=== PATIENT | female | born 1975 | race Caucasian/White ===

== ENCOUNTER 2016-08-11 11:08 | Outpatient (CLI) | payer MEDICARE, MEDICAID | END 2016-08-11 23:59 | DX: N39.0 Urinary tract infection, site not specified (principal) ==

== ENCOUNTER 2016-08-14 11:38 | Outpatient (CLI) | payer MEDICARE, MEDICAID | END 2016-08-14 11:39 | disposition EMS.NT | DX: Z03.89 Encounter for observation for other suspected diseases and conditions ruled out (principal) ==

== ENCOUNTER 2016-08-14 15:34 | Outpatient (CLI) | payer MEDICARE, MEDICAID | END 2016-08-14 15:35 | disposition home or self-care (01) | DX: M47.896 Other spondylosis, lumbar region (principal) ==

== ENCOUNTER 2016-08-25 13:20 | Outpatient (CLI) | payer MEDICARE, MEDICAID ==
[2016-08-25 19:56] LABS: ALBUMIN/GLOBULIN RATIO 1.2 (1.0-2.2); BILIRUBIN,TOTAL 0.5 mg/dL (0.2-1.0); CALCIUM 9.3 mg/dL (8.5-10.3); CREATININE 0.8 mg/dL (0.4-1.0); POTASSIUM 3.7 mmol/L (3.5-5.0); TOTAL PROTEIN 7.3 g/dL (6.7-8.2)
[2016-08-25 20:07] LABS: HEMOGLOBIN A1C 1.18 g/dL
== END 2016-08-25 13:21 | disposition home or self-care (01) ==
LOC: LAB.N 13:20
PROVIDERS: ATTEND Physician Assistant
DX: E11.9 Type 2 diabetes mellitus without complications (principal)
CPT/HCPCS: 36415; 80053; 82043; 82570; 83036

== ENCOUNTER 2016-09-03 13:53 | Emergency (ER) | payer MEDICARE, MEDICAID ==
[2016-09-03 14:23] LABS: BILIRUBIN,URINE NEGATIVE (NEGATIVE)
--- NOTE | 2016-09-03 14:23 | ED Physician Documentation ---
PD HPI ABD PAIN - Stated complaint Stated Complaint: ABD/SIDE PX - Chief complaint Chief Complaint: Abd Pain - History obtained from History obtained from: Patient, Caregiver - History of Present Illness Timing - onset: Enter time (1999), Last night Timing - duration: Hours Timing - details: Gradual onset, Still present Quality: Sharp, Pain Location: RLQ Radiation: Lower back Improved by: Laying still Worsened by: Moving, Position, Palpation Associated symptoms: Nausea, Loss of appetite Similar symptoms before: Has not had sx before Recently seen: Not recently seen - Additional information Additional information: 41 y/o female has had the onset of RLQ abdominal pain starting last night about 8pm during intercourse. The pain has worsened overnight and this morning after evaluation by her own PMD she was sent to the ED with a tender right lower quadrant. She reports the pain is worse with any movement and started with rigorous activity pushing back. It hurts to stand and walk and there is improvement with being motionless. Review of Systems Constitutional: denies: Fever, Chills Eyes: denies: Decreased vision Ears: denies: Ear pain Nose: denies: Congestion Throat: denies: Sore throat Cardiac: denies: Chest pain / pressure, Palpitations Respiratory: denies: Dyspnea, Cough GI: reports: Abdominal Pain, Nausea. denies: Abdominal Swelling, Vomiting, Constipation, Diarrhea : reports: Dysuria. denies: Frequency, Hesitancy PD PAST MEDICAL HISTORY - Past Medical History Past Medical History: Yes Cardiovascular: Hypertension, Deep vein thrombosis Endocrine/Autoimmune: Type 2 diabetes GI: Other Psych: Anxiety, Other Musculoskeletal: Osteoarthritis Other Past Medical History: schizoaffective, hernias - Past Surgical History Past Surgical History: Yes General: Cholecystectomy - Present Medications Home Medications: Ambulatory Orders Medication Instructions Recorded Confirmed Oxycodone HCl/Acetaminophen 1 - 2 each PO Q6HR PRN #20 tablet 09/03/16 [Percocet 5-325 mg Tablet] - Allergies Allergies/Adverse Reactions: Allergies Allergy/AdvReac Type Severity Reaction Status Date / Time bupropion HCl * Allergy Unknown Verified 09/03/16 14:37 [From Wellbutrin] cephalexin monohydrate * Allergy Rash Verified 09/03/16 14:37 [From Keflex] codeine Allergy Unknown Verified 09/03/16 14:37 fluoxetine HCl * Allergy Anaphylaxis Verified 09/03/16 14:37 [From Prozac] lithium Allergy Unknown Verified 09/03/16 14:37 Penicillins Allergy Rash Verified 09/03/16 14:37 phenytoin sodium * Allergy Rash Verified 09/03/16 14:37 [From Dilantin] phenytoin sodium extended * Allergy Rash Verified 09/03/16 14:37 [From Dilantin] - Social History Does the pt smoke?: No Smoking Status: Never smoker Does the pt drink ETOH?: Yes Does the pt have substance abuse?: No Substance Use and Type: Marijuana - Immunizations Immunizations are current?: Yes PD ED PE NORMAL - Vitals Vital signs reviewed: Yes (normal ) - General General: No acute distress, Well developed/nourished - HEENT HEENT: Atraumatic, PERRL, EOMI - Neck Neck: Supple, no meningeal sign - Cardiac Cardiac: RRR, No murmur - Respiratory Respiratory: No respiratory distress, Clear bilaterally - Abdomen Abdomen: Soft, Other (There is a large hiatal hernia on the left side. This is tender about the baseline according to the patient. The is marked, specific and reproducible tenderness to the Right lower quadrant with garding. ) - Back Back: No CVA TTP, No spinal TTP - Derm Derm: Normal color, Warm and dry, No rash - Extremities Extremities: No deformity, No edema - Neuro Neuro: Alert and oriented X 3, No motor deficit, No sensory deficit, Normal speech - Psych Psych: Normal mood, Normal affect Results - Vitals Vitals: Vital Signs - 24 hr 09/03/16 09/03/16 13:56 16:25 Temperature 36.5 C Heart Rate 90 79 Respiratory 17 16 Rate Blood Pressure 127/76 122/60 O2 Saturation 96 96 Oxygen O2 Source Room air - Labs Labs: Laboratory Tests 09/03/16 09/03/16 09/03/16 14:00 14:32 14:32 WBC 7.8 RBC 5.17 Hgb 13.4 Hct 40.3 MCV 78.0 L MCH 26.0 L MCHC 33.3 RDW 17.6 H Plt Count 242 MPV 8.2 Neut # 5.4 Lymph # 1.8 [place] # 0.5 Eos # 0.0 Baso # 0.0 Absolute Nucleated RBC 0.00 Nucleated RBCs 0.0 Sodium 140 Potassium 3.9 Chloride 103 Carbon Dioxide 27 Anion Gap 10.0 BUN 11 Creatinine 0.6 Estimated GFR (MDRD) 111 Glucose 125 H Calcium 8.8 Total Bilirubin 0.5 AST 14 ALT 14 Alkaline Phosphatase 87 Total Protein 6.8 Albumin 3.7 Globulin 3.1 Albumin/Globulin Ratio 1.2 Lipase 18 L Urine Color YELLOW Urine Clarity CLEAR Urine pH 7.0 Ur Specific [place] 1.010 Urine Protein NEGATIVE Urine Glucose (UA) >=1000 H Urine Ketones NEGATIVE Urine Occult Blood NEGATIVE Urine Nitrite NEGATIVE Urine Bilirubin NEGATIVE Urine Urobilinogen 0.2 (NORMAL) Ur Leukocyte Esterase NEGATIVE Ur Microscopic Review NOT INDICATED Urine Culture Comments NOT INDICATED Urine HCG, Qual NEGATIVE - Rads (name of study) CT abdomen and pelvis without Radiology: Prelim report reviewed (Impression: 1. Recurrent large ventral midline abdominal wall hernia containing nonobstructive loops of small bowel transverse colon. No bowel wall thickening or inflammatory change evident. 2. Prior cholecystectomy. 3. A 1.9 cm indeterminate inferior splenic lesion. 4. Artifacts limits evaluation the pelvis.), Final report received (Final report includes description of the appendix been without signs of inflammation.), EMP read indepedently, See rad report PD MEDICAL DECISION MAKING - ED course Complexity details: reviewed old records, reviewed results, re-evaluated patient , considered differential, d/w patient, d/w family ED course: 41 y/o female with injury during intercourse has a tender right lower quadrant with reproducible pain. The pain is well localized and present with palpation and movement. She has normal WBC, no inflammation of the appendix on CT scan and no specific etiology identified for abdominal pain. I have diagnosed her with abdominal wall strain and have described the expected outcome of this including persistent pain and pain with movement, standing and walking. She and her caregiver are in agreement with the diagnosis as it does appear to fit the clinical picture. Departure - Departure Disposition: 01 Home, Self Care Clinical Impression: Abdominal wall strain Qualifiers: Encounter type: initial encounter Qualified Code(s): S39.011A - Strain of muscle, fascia and tendon of abdomen, initial encounter Condition: Stable Instructions: ED Strain Abdominal Muscle Follow-Up: Sha Duong PA-C [Primary Care Provider] - Prescriptions: Oxycodone HCl/Acetaminophen [Percocet 5-325 mg Tablet] 1 - 2 each PO Q6HR PRN # 20 tablet PRN Reason: Pain Discharge Date/Time: 09/03/16 16:59
[2016-09-03 14:24] LABS: UA CHARGE (STRIP ONLY) YES; UR CULTURE IF IND NOT INDICATED
[2016-09-03 14:25] LABS: HCG UR QUAL NEGATIVE
[2016-09-03] MEDS ORDERED: SODIUM CHLORIDE 0.9% 1,000 ML IV ONE (14:26)
[2016-09-03] MEDS ORDERED: KETOROLAC 60 MG/2 ML VIAL IVP STA (14:26)
[2016-09-03 14:46] LABS: BASOPHILS % (AUTO) 0.6 %; EOSINOPHILS % (AUTO) 0.4 %; HCT - HEMATOCRIT 40.3 % (37.0-47.0); HGB - HEMOGLOBIN 13.4 g/dL (12.0-16.0); LYMPHOCYTES # (AUTO) 1.8 10^3/uL (1.5-3.5); LYMPHOCYTES % (AUTO) 22.7 %; MEAN CORPUSCULAR HGB CONC 33.3 g/dL (32.0-36.0); MEAN PLATELET VOLUME 8.2 fL (7.9-10.8); MONOCYTES # (AUTO) 0.5 10^3/uL (0.0-1.0); MONOCYTES % (AUTO) 6.1 %; NEUTROPHILS # (AUTO) 5.4 10^3/uL (1.5-6.6); NEUTROPHILS % (AUTO) 70.2 %; RED BLOOD COUNT 5.17 10^6/uL (4.20-5.40); RED CELL DISTRIBUTION WIDTH 17.6 % (12.0-15.0); UNCORRECTED WHITE BLOOD COUNT 7.8 x10^3/uL; WHITE BLOOD COUNT 7.8 x10^3/uL (4.8-10.8)
[2016-09-03 15:08] LABS: ALBUMIN/GLOBULIN RATIO 1.2 (1.0-2.2); BILIRUBIN,TOTAL 0.5 mg/dL (0.2-1.0); CALCIUM 8.8 mg/dL (8.5-10.3); CREATININE 0.6 mg/dL (0.4-1.0); POTASSIUM 3.9 mmol/L (3.5-5.0); TOTAL PROTEIN 6.8 g/dL (6.7-8.2)
--- NOTE | 2016-09-03 15:17 | CT Preliminary Report ---
Exam: CT Abdomen/Pelvis W/O IMPRESSION: 1. Recurrent large ventral midline abdominal wall hernia containing nonobstructed loops of small alejandra l and a loop of transverse colon. No bowel wall thickening or inflammatory change evident. 2. Prior cholecystectomy. 3. A 1.9 cm indeterminate inferior splenic lesion. 4. Artifacts limit evaluation of the pelvis. [facility] SITE ID: [id number]
--- NOTE | 2016-09-03 15:20 | CT Report ---
EXAM: CT ABDOMEN AND PELVIS (CT KUB) EXAM DATE: 09/03/2016 02:54 PM. CLINICAL HISTORY: RLQ pain. COMPARISONS: None. TECHNIQUE: Routine axial helical CT imaging was performed through the abdomen and pelvis without IV c ontrast. Reconstructions: Coronal and sagittal. Artifacts due to body habitus are more pronounced in the pelvis. In accordance with CT protocol optimization, one or more of the following dose reduction techniques w ere utilized for this exam: automated exposure control, adjustment of mA and/or KV based on patient s ize, or use of iterative reconstructive technique. FINDINGS: Lung Bases: Prior ASD repair. Right Kidney/Ureter: No stones, hydronephrosis, or hydroureter. No perinephric fat stranding. Left Kidney/Ureter: No stones, hydronephrosis, or hydroureter. No perinephric fat stranding. Other Solid Organs: 1.9 x 1.8 cm indeterminant inferior splenic low-attenuation lesion. Medial splenu le noted as well. Gallbladder/Bile Ducts: Prior cholecystectomy. Peritoneal Cavity: Large midline ventral abdominal wall hernia containing nonobstructed loops of smal l bowel and loop of transverse colon. The hernia neck measures 8.2 cm transverse by 6.6 cm craniocaud al. Evidence of prior repair noted. No bowel wall thickening or mesenteric edema evident. No inflamed appendix evident. Pelvic Organs: No bladder stones or wall thickening. Noncontrast images of the visualized pelvic orga ns are unremarkable, noting streak artifacts related to body habitus. Vasculature: Unremarkable. Other: None. IMPRESSION: 1. Recurrent large ventral midline abdominal wall hernia containing nonobstructed loops of small alejandra l and a loop of transverse colon. No bowel wall thickening or inflammatory change evident. 2. Prior cholecystectomy. 3. A 1.9 cm indeterminate inferior splenic lesion. 4. Artifacts limit evaluation of the pelvis. [facility] Referring Provider Line: [phone] SITE ID: [id number]
[2016-09-03] MEDS ORDERED: KETOROLAC 30 MG/ML VIAL ONE (15:26)
[2016-09-03 16:25] VITALS: BP 122/60
== END 2016-09-03 16:59 | disposition home or self-care (01) ==
LOC: ED 13:53
DX: S39.011A Strain of muscle, fascia and tendon of abdomen, initial encounter (principal); X58.XXXA Exposure to other specified factors, initial encounter; K43.9 Ventral hernia without obstruction or gangrene; D73.89 Other diseases of spleen; I10 Essential (primary) hypertension; Z86.718 Personal history of other venous thrombosis and embolism; M19.90 Unspecified osteoarthritis, unspecified site
CPT/HCPCS: 36415; 74176; 80053; 81001; 81003; 81025; 83690; 85025; 87086; 96374; 99283; 99284

== ENCOUNTER 2016-10-26 10:30 | Emergency (ER) | payer MEDICARE, MEDICAID ==
[2016-10-26 11:10] LABS: BILIRUBIN,URINE NEGATIVE (NEGATIVE)
[2016-10-26 11:11] LABS: UA w/ MICROSCOPIC CHARGE YES
[2016-10-26 11:14] LABS: HCG UR QUAL NEGATIVE
[2016-10-26 11:22] LABS: UR CULTURE IF IND NOT INDICATED; WBC,URINE 0-3 /HPF (0-5)
[2016-10-26 13:44] LABS: BASOPHILS # (AUTO) 0.1 10^3/uL (0.0-0.1); BASOPHILS % (AUTO) 1.7 %; EOSINOPHILS % (AUTO) 0.5 %; HCT - HEMATOCRIT 40.9 % (37.0-47.0); HGB - HEMOGLOBIN 13.7 g/dL (12.0-16.0); LYMPHOCYTES # (AUTO) 2.2 10^3/uL (1.5-3.5); LYMPHOCYTES % (AUTO) 34.8 %; MEAN CORPUSCULAR HEMOGLOBIN 26.7 pg (27.0-31.0); MEAN CORPUSCULAR HGB CONC 33.5 g/dL (32.0-36.0); MEAN CORPUSCULAR VOLUME 79.5 fL (81.0-99.0); MEAN PLATELET VOLUME 7.7 fL (7.9-10.8); MONOCYTES # (AUTO) 0.4 10^3/uL (0.0-1.0); MONOCYTES % (AUTO) 7.2 %; NEUTROPHILS # (AUTO) 3.5 10^3/uL (1.5-6.6); NEUTROPHILS % (AUTO) 55.8 %; RED BLOOD COUNT 5.15 10^6/uL (4.20-5.40); RED CELL DISTRIBUTION WIDTH 16.3 % (12.0-15.0); UNCORRECTED WHITE BLOOD COUNT 6.2 x10^3/uL; WHITE BLOOD COUNT 6.2 x10^3/uL (4.8-10.8)
[2016-10-26] MEDS ORDERED: BENZONATATE 100 MG CAPSULE PO STA (13:45)
[2016-10-26] MEDS ORDERED: ALBUTEROL NEB 2.5 MG/3 ML INH STA (13:45)
[2016-10-26 13:50] LABS: INR 1.2 (0.8-1.2); PT - PROTHROMBIN TIME 13.7 secs (9.9-12.6)
[2016-10-26 13:57] LABS: PARTIAL THROMBOPLASTIN TIME 32.1 secs (24.9-33.3)
[2016-10-26] MEDS ORDERED: ALBUTEROL NEB 2.5 MG/3 ML INH ONE ×2 (13:57→20:26)
[2016-10-26] MEDS ORDERED: BENZONATATE 100 MG CAPSULE PO ONE ×2 (14:01→21:34)
--- NOTE | 2016-10-26 14:36 | XRAY Preliminary Report ---
Exam: XR Chest 2 View PA/LAT IMPRESSION: 1. No acute cardiopulmonary disease. 2. Tiny radiodensities at the inferomedial aspect of the right hemithorax which may represent calcifi cations or clips or foreign bodies. [facility] SITE ID: [id number]
--- NOTE | 2016-10-26 14:38 | XRAY Report ---
EXAM: CHEST RADIOGRAPHY EXAM DATE: 10/26/2016 02:01 PM. CLINICAL HISTORY: Cough COMPARISON: None. TECHNIQUE: 2 views. FINDINGS: Lungs/Pleura: No focal opacities evident. No pleural effusion. No pneumothorax. Normal volumes. Mediastinum: Heart and mediastinal contours are unremarkable. Other: Tiny radiodensities at the inferomedial aspect of the right hemithorax. IMPRESSION: 1. No acute cardiopulmonary disease. 2. Tiny radiodensities at the inferomedial aspect of the right hemithorax which may represent calcifi cations or clips or foreign bodies. [facility] Referring Provider Line: [phone] SITE ID: [id number]
[2016-10-26] MEDS ORDERED: LORazepam 0.5 MG TABLET PO STA (14:56)
[2016-10-26] MEDS ORDERED: LORazepam 0.5 MG TABLET ONE ×2 (15:02→21:33)
--- NOTE | 2016-10-26 15:35 | ED Physician Documentation ---
History of Present Illness - Stated complaint Stated Complaint: mhe - Chief complaint Chief Complaint: MHE - Additonal information Additional information: hx from pt 41 female known mental health disorder was in pt mental health at [place] last winter states she is followed outpt with [facility] but also says she does not have a psychiatrist or psychologistis compliant with ehr meds she comes to ER today c/o auditory (voices chainsaws) visual (lights roaches) hallucinations and suicidal and homicidal ideations without a clear plan and feeling she needs inpt mental health care again also had a cough productive of green sputum and SOA 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 - also has a hx DVTs but states compliant with her xarelto and no leg swelling denies preg Review of Systems Constitutional: denies: Fever, Chills Throat: denies: Sore throat Cardiac: denies: Chest pain / pressure Respiratory: reports: Dyspnea, Cough, Wheezing GI: denies: Abdominal Pain, Nausea, Vomiting : denies: Now EGA Psychiatric: reports: Suicidal, Homicidal, Hallucinations, Anxiety Immunocompromised: denies: Immunocompromised PD PAST MEDICAL HISTORY - Past Medical History Past Medical History: Yes Cardiovascular: Hypertension, Deep vein thrombosis, Pulmonary embolism Neuro: Peripheral neuropathy, Seizure disorder Endocrine/Autoimmune: Type 2 diabetes GI: Other : Renal insuffiency Psych: Depression, Anxiety, Bipolar disorder, Schizophrenia, Other Musculoskeletal: Osteoarthritis - Past Surgical History Past Surgical History: Yes General: Cholecystectomy - Present Medications Home Medications: Ambulatory Orders Medication Instructions Recorded Confirmed Aripiprazole [Abilify] 20 mg PO DAILY 09/28/16 10/26/16 Ascorbic Acid [Vitamin C] 500 mg PO DAILY 09/28/16 10/26/16 Canagliflozin [Invokana] 100 mg PO DAILY 09/28/16 10/26/16 Citalopram Hydrobromide 20 mg PO DAILY 09/28/16 10/26/16 [Citalopram HBr] Clotrimazole [Clotrimazole 3] 1 applic BID 09/28/16 10/26/16 Ferrous Sulfate 325 mg PO DAILY 09/28/16 10/26/16 Furosemide [Lasix] 40 mg PO DAILY 09/28/16 10/26/16 Gabapentin 200 mg PO BID 09/28/16 10/26/16 Haloperidol Oral Soln [Haldol Oral 10 ml PO BID 09/28/16 10/26/16 Soln] Insulin Aspart [NovoLOG] 6 units SUBQ TID 09/28/16 10/26/16 Insulin Glargine [Lantus] 120 units SUBQ DAILY 09/28/16 10/26/16 Lisinopril 2.5 mg PO DAILY 09/28/16 10/26/16 Lorazepam [Ativan] 1 mg PO QID PRN 09/28/16 10/26/16 Losartan Potassium 25 mg PO DAILY 09/28/16 10/26/16 Metformin HCl 1,000 mg PO BID 09/28/16 10/26/16 Metoclopramide [Reglan] 10 mg PO BID 09/28/16 10/26/16 Rivaroxaban [Xarelto] 1 each PO DAILY 09/28/16 10/26/16 Rosuvastatin Calcium [Crestor] 40 mg PO DAILY 09/28/16 10/26/16 SITagliptin [Januvia] 100 mg PO DAILY 09/28/16 10/26/16 Tramadol HCl 50 mg PO QID PRN 09/28/16 10/26/16 lamoTRIgine [LaMICtal] 200 mg PO DAILY 09/28/16 10/26/16 raNITIdine [Zantac] 150 mg PO BID 09/28/16 10/26/16 Docusate Sodium 100 mg DAILY PRN 10/26/16 10/26/16 - Allergies Allergies/Adverse Reactions: Allergies Allergy/AdvReac Type Severity Reaction Status Date / Time bupropion HCl * Allergy Unknown Verified 10/26/16 10:42 [From Wellbutrin] cephalexin monohydrate * Allergy Rash Verified 10/26/16 10:42 [From Keflex] codeine Allergy Unknown Verified 10/26/16 10:42 fluoxetine HCl * Allergy Anaphylaxis Verified 10/26/16 10:42 [From Prozac] lithium Allergy Unknown Verified 10/26/16 10:42 Penicillins Allergy Rash Verified 10/26/16 10:42 phenytoin sodium * Allergy Rash Verified 10/26/16 10:42 [From Dilantin] phenytoin sodium extended * Allergy Rash Verified 10/26/16 10:42 [From Dilantin] - Social History Does the pt smoke?: No Smoking Status: Never smoker Does the pt drink ETOH?: Yes Does the pt have substance abuse?: No - Immunizations Immunizations are current?: Yes Results - Vitals Vitals: Vital Signs - 24 hr 10/26/16 10/26/16 10/26/16 14:22 19:02 20:45 Temperature 36.5 C 36.8 C Heart Rate 92 92 93 Respiratory 18 18 16 Rate Blood Pressure 124/74 135/89 H O2 Saturation 99 99 10/27/16 10/27/16 10/27/16 00:17 04:03 09:40 Temperature Heart Rate 91 95 93 Respiratory 16 16 18 Rate Blood Pressure 125/81 H O2 Saturation 95 10/27/16 12:00 Temperature Heart Rate 86 Respiratory 18 Rate Blood Pressure O2 Saturation Oxygen O2 Source Room air - Labs Labs: Laboratory Tests 10/26/16 10/26/16 10/26/16 10:55 10:55 13:35 WBC 6.2 RBC 5.15 Hgb 13.7 Hct 40.9 MCV 79.5 L MCH 26.7 L MCHC 33.5 RDW 16.3 H Plt Count 237 MPV 7.7 L Neut # 3.5 Lymph # 2.2 [place] # 0.4 Eos # 0.0 Baso # 0.1 Absolute Nucleated RBC 0.00 Nucleated RBCs 0.0 PT INR APTT Sodium Potassium Chloride Carbon Dioxide Anion Gap BUN Creatinine Estimated GFR (MDRD) Glucose POC Whole Bld Glucose Calcium Magnesium Total Bilirubin AST ALT Alkaline Phosphatase Total Protein Albumin Globulin Albumin/Globulin Ratio Lipase TSH Urine Color LT RED Urine Clarity HAZY Urine pH 6.0 Ur Specific [place] <=1.005 Urine Protein TRACE Urine Glucose (UA) >=1000 H Urine Ketones NEGATIVE Urine Occult Blood LARGE H Urine Nitrite NEGATIVE Urine Bilirubin NEGATIVE Urine Urobilinogen 0.2 (NORMAL) Ur Leukocyte Esterase NEGATIVE Urine RBC TNTC H Urine WBC 0-3 Ur Squamous Epith Cells RARE Squamous Urine Bacteria Rare Ur Microscopic Review INDICATED Urine Culture Comments NOT INDICATED Urine HCG, Qual NEGATIVE Urine Opiates Screen NEGATIVE Ur Oxycodone Screen NEGATIVE Urine Methadone Screen NEGATIVE Ur Propoxyphene Screen NEGATIVE Ur Barbiturates Screen NEGATIVE Ur Tricyclics Screen NEGATIVE Ur Phencyclidine Scrn NEGATIVE Ur Amphetamine Screen NEGATIVE U Methamphetamines Scrn NEGATIVE U Benzodiazepines Scrn NEGATIVE Urine Cocaine Screen NEGATIVE U Cannabinoids Screen NEGATIVE Ethyl Alcohol 10/26/16 10/26/16 10/26/16 13:35 13:35 13:35 WBC RBC Hgb Hct MCV MCH MCHC RDW Plt Count MPV Neut # Lymph # [place] # Eos # Baso # Absolute Nucleated RBC Nucleated RBCs PT 13.7 H INR 1.2 APTT 32.1 Sodium 136 Potassium 3.6 Chloride 102 Carbon Dioxide 23 Anion Gap 11.0 BUN 15 Creatinine 0.8 Estimated GFR (MDRD) 79 L Glucose 225 H POC Whole Bld Glucose Calcium 8.3 L Magnesium 1.7 Total Bilirubin 0.2 AST 19 ALT 15 Alkaline Phosphatase 90 Total Protein 7.1 Albumin 4.0 Globulin 2.9 Albumin/Globulin Ratio 1.3 Lipase 14 L TSH 5.01 Urine Color Urine Clarity Urine pH Ur Specific [place] Urine Protein Urine Glucose (UA) Urine Ketones Urine Occult Blood Urine Nitrite Urine Bilirubin Urine Urobilinogen Ur Leukocyte Esterase Urine RBC Urine WBC Ur Squamous Epith Cells Urine Bacteria Ur Microscopic Review Urine Culture Comments Urine HCG, Qual Urine Opiates Screen Ur Oxycodone Screen Urine Methadone Screen Ur Propoxyphene Screen Ur Barbiturates Screen Ur Tricyclics Screen Ur Phencyclidine Scrn Ur Amphetamine Screen U Methamphetamines Scrn U Benzodiazepines Scrn Urine Cocaine Screen U Cannabinoids Screen Ethyl Alcohol < 5.0 10/26/16 10/26/16 13:35 18:58 WBC RBC Hgb Hct MCV MCH MCHC RDW Plt Count MPV Neut # Lymph # [place] # Eos # Baso # Absolute Nucleated RBC Nucleated RBCs PT INR APTT Sodium Potassium Chloride Carbon Dioxide Anion Gap BUN Creatinine Estimated GFR (MDRD) Glucose POC Whole Bld Glucose 238 H 151 H Calcium Magnesium Total Bilirubin AST ALT Alkaline Phosphatase Total Protein Albumin Globulin Albumin/Globulin Ratio Lipase TSH Urine Color Urine Clarity Urine pH Ur Specific [place] Urine Protein Urine Glucose (UA) Urine Ketones Urine Occult Blood Urine Nitrite Urine Bilirubin Urine Urobilinogen Ur Leukocyte Esterase Urine RBC Urine WBC Ur Squamous Epith Cells Urine Bacteria Ur Microscopic Review Urine Culture Comments Urine HCG, Qual Urine Opiates Screen Ur Oxycodone Screen Urine Methadone Screen Ur Propoxyphene Screen Ur Barbiturates Screen Ur Tricyclics Screen Ur Phencyclidine Scrn Ur Amphetamine Screen U Methamphetamines Scrn U Benzodiazepines Scrn Urine Cocaine Screen U Cannabinoids Screen Ethyl Alcohol - Rads (name of study) CXR Radiology: See rad report (no acute cardiopulmonary dz, ) PD MEDICAL DECISION MAKING - ED course ED course: CXR neg for pna - pt given MDI and cough meds - doubt PE since pt is compliant with xarelto and has no leg edema HR better after ativan medically clear - slightly high glucose/pt is known diabetic, hematuria / on her period see SW notes - no voluntary beds available - so pt is to board in the ER overnight and will look for bed again tomorrow - pt aware of plan wrote for cough meds and neb on scheduled basis, ativan on scheduled basis, pt has her own home meds which she can take per usual, her SO will bring in her CPAPA for overnight use turned over to mid/power and recovery shift engineer and I will be back to resume care in AM 10/27 7 AM resumed care - spoke to pt - no acute overnight events, ativan is helping, she still has hallucinations, she did not sleep well SW for today Dipti is aware of case and need for voluntary placement pt placed at [facility] to transport, pt calm at [facility] at time of dc, VSS Departure - Departure Disposition: 65 Psych Hosp/Unit DC/Xfer Clinical Impression: Hallucinations, Suicidal ideation, Homicidal ideation COPD (chronic obstructive pulmonary disease) Qualifiers: COPD type: unspecified COPD Qualified Code(s): J44.9 - Chronic obstructive pulmonary disease, unspecified Condition: Fair
[2016-10-26 16:12] LABS: ALBUMIN/GLOBULIN RATIO 1.3 (1.0-2.2)
[2016-10-26 16:21] LABS: BILIRUBIN,TOTAL 0.2 mg/dL (0.2-1.0); BUN - BLOOD UREA NITROGEN 15 mg/dL (6-20); CALCIUM 8.3 mg/dL (8.5-10.3); CARBON DIOXIDE - CO2 23 mmol/L (21-32); CHLORIDE 102 mmol/L (101-111); CREATININE 0.8 mg/dL (0.4-1.0); GFR - MDRD 79 (>89); GLUCOSE 225 mg/dL (70-100); LIPASE 14 U/L (22-51); MAGNESIUM 1.7 mg/dL (1.7-2.8); POTASSIUM 3.6 mmol/L (3.5-5.0); SODIUM 136 mmol/L (135-145); TOTAL PROTEIN 7.1 g/dL (6.7-8.2)
[2016-10-26] MEDS ORDERED: ACETAMINOPHEN 325 MG TABLET PO STA (18:18)
[2016-10-26] MEDS ORDERED: ACETAMINOPHEN 325 MG TABLET PO ONE (18:32)
[2016-10-26] MEDS: ALBUTEROL NEB 2.5 MG/3 ML INH SCH (20:45)
[2016-10-26] MEDS: BENZONATATE 100 MG CAPSULE PO SCH (21:38)
[2016-10-26] MEDS: LORazepam 0.5 MG TABLET PO SCH (21:38)
[2016-10-27] MEDS ORDERED: ALBUTEROL NEB 2.5 MG/3 ML INH ONE ×3 (00:04→12:04)
[2016-10-27] MEDS: ALBUTEROL NEB 2.5 MG/3 ML INH SCH ×3 (00:17→12:00)
[2016-10-27] MEDS ORDERED: LORazepam 0.5 MG TABLET ONE ×2 (03:18→09:37)
[2016-10-27] MEDS: LORazepam 0.5 MG TABLET PO SCH ×2 (03:20→09:39)
[2016-10-27] MEDS ORDERED: ONDANSETRON ODT 4 MG TABLET TL STA (04:09)
[2016-10-27] MEDS ORDERED: ONDANSETRON ODT 4 MG TABLET ONE (04:09)
[2016-10-27] MEDS: BENZONATATE 100 MG CAPSULE PO SCH (07:08)
[2016-10-27] MEDS ORDERED: PATIENT OWN MED PO SCH (09:00)
[2016-10-27 09:42] VITALS: BP 125/81
[2016-10-27] MEDS ORDERED: PROMETHAZINE 25 MG/1 ML VIAL IM STA (11:15)
[2016-10-27] MEDS ORDERED: PROMETHAZINE 25 MG/1 ML VIAL ONE (11:17)
== END 2016-10-27 14:05 ==
LOC: ED 10:30
DX: R45.851 Suicidal ideations (principal); R45.850 Homicidal ideations; R44.0 Auditory hallucinations; R44.1 Visual hallucinations; F41.9 Anxiety disorder, unspecified; F31.9 Bipolar disorder, unspecified; J44.9 Chronic obstructive pulmonary disease, unspecified; I10 Essential (primary) hypertension; E11.42 Type 2 diabetes mellitus with diabetic polyneuropathy; Z79.4 Long term (current) use of insulin; Z86.718 Personal history of other venous thrombosis and embolism; Z86.711 Personal history of pulmonary embolism; Z79.01 Long term (current) use of anticoagulants
CPT/HCPCS: 71020; 80053; 80306; 81001; 81025; 83690; 83735; 84443; 85025; 85610; 85730; 94640; 96372; 99284; A9270; G0480; J7613; Q0162; 80320; 81003; 87086; 99283

== ENCOUNTER 2016-11-23 09:59 | Outpatient (CLI) | payer MEDICARE, MEDICAID ==
[2016-11-23 13:01] LABS: BASOPHILS % (AUTO) 0.5 %; EOSINOPHILS % (AUTO) 0.5 %; HCT - HEMATOCRIT 41.3 % (37.0-47.0); HGB - HEMOGLOBIN 13.7 g/dL (12.0-16.0); LYMPHOCYTES # (AUTO) 1.9 10^3/uL (1.5-3.5); LYMPHOCYTES % (AUTO) 22.2 %; MEAN CORPUSCULAR HEMOGLOBIN 26.6 pg (27.0-31.0); MEAN CORPUSCULAR HGB CONC 33.1 g/dL (32.0-36.0); MEAN CORPUSCULAR VOLUME 80.4 fL (81.0-99.0); MEAN PLATELET VOLUME 8.3 fL (7.9-10.8); MONOCYTES # (AUTO) 0.6 10^3/uL (0.0-1.0); MONOCYTES % (AUTO) 6.6 %; NEUTROPHILS # (AUTO) 6.1 10^3/uL (1.5-6.6); NEUTROPHILS % (AUTO) 70.2 %; RED BLOOD COUNT 5.13 10^6/uL (4.20-5.40); RED CELL DISTRIBUTION WIDTH 15.7 % (12.0-15.0); UNCORRECTED WHITE BLOOD COUNT 8.7 x10^3/uL; WHITE BLOOD COUNT 8.7 x10^3/uL (4.8-10.8)
[2016-11-23 13:03] LABS: ALBUMIN/GLOBULIN RATIO 1.4 (1.0-2.2); BILIRUBIN,TOTAL 0.4 mg/dL (0.2-1.0); BUN - BLOOD UREA NITROGEN 6 mg/dL (6-20); CALCIUM 8.9 mg/dL (8.5-10.3); CARBON DIOXIDE - CO2 24 mmol/L (21-32); CHLORIDE 103 mmol/L (101-111); CHOL/HDL RATIO 3.3 (<4.4); CHOLESTEROL 144 mg/dL; CREATININE 0.6 mg/dL (0.4-1.0); GFR - MDRD 111 (>89); GLUCOSE 152 mg/dL (70-100); HDL CHOLESTEROL 44 mg/dL; LDL/HDL RATIO 1.1 (<4.4); POTASSIUM 3.7 mmol/L (3.5-5.0); SODIUM 138 mmol/L (135-145); TOTAL PROTEIN 7.4 g/dL (6.7-8.2); TRIGLYCERIDES 258 mg/dL; VLDL CHOLESTEROL 52 mg/dL
== END 2016-11-23 10:00 | disposition home or self-care (01) ==
LOC: LAB.N 09:59
PROVIDERS: ATTEND Physician Assistant
DX: E11.22 Type 2 diabetes mellitus with diabetic chronic kidney disease (principal); N18.2 Chronic kidney disease, stage 2 (mild); R44.0 Auditory hallucinations
CPT/HCPCS: 36415; 80053; 80061; 84443; 85025

== ENCOUNTER 2016-12-18 15:37 | Emergency (ER) | payer MEDICARE, MEDICAID ==
[2016-12-18] MEDS ORDERED: HYDROmorphone 1 MG/ML SYRINGE IVP STA (16:11)
[2016-12-18] MEDS ORDERED: ONDANSETRON 4 MG/2 ML VIAL IVP STA (16:11)
[2016-12-18] MEDS ORDERED: SODIUM CHLORIDE 0.9% 1,000 ML IV ONE (16:11)
[2016-12-18 17:09] LABS: BASOPHILS # (AUTO) 0.2 10^3/uL (0.0-0.1); BASOPHILS % (AUTO) 1.9 %; EOSINOPHILS % (AUTO) 0.6 %; HCT - HEMATOCRIT 43.6 % (37.0-47.0); HGB - HEMOGLOBIN 14.7 g/dL (12.0-16.0); LYMPHOCYTES # (AUTO) 2.5 10^3/uL (1.5-3.5); LYMPHOCYTES % (AUTO) 30.9 %; MEAN CORPUSCULAR HEMOGLOBIN 27.1 pg (27.0-31.0); MEAN CORPUSCULAR HGB CONC 33.7 g/dL (32.0-36.0); MEAN CORPUSCULAR VOLUME 80.5 fL (81.0-99.0); MEAN PLATELET VOLUME 7.9 fL (7.9-10.8); MONOCYTES # (AUTO) 0.5 10^3/uL (0.0-1.0); MONOCYTES % (AUTO) 5.7 %; NEUTROPHILS # (AUTO) 4.8 10^3/uL (1.5-6.6); NEUTROPHILS % (AUTO) 60.9 %; RED BLOOD COUNT 5.41 10^6/uL (4.20-5.40); RED CELL DISTRIBUTION WIDTH 15.5 % (12.0-15.0); UNCORRECTED WHITE BLOOD COUNT 7.9 x10^3/uL; WHITE BLOOD COUNT 7.9 x10^3/uL (4.8-10.8)
[2016-12-18] MEDS ORDERED: SODIUM CHLORIDE FLUSH 0.9% 10 ML SYRINGE IVP ONE (17:13)
[2016-12-18] MEDS ORDERED: HYDROmorphone 1 MG/ML SYRINGE ONE (17:13)
[2016-12-18] MEDS ORDERED: ONDANSETRON 4 MG/2 ML VIAL ONE (17:13)
[2016-12-18 17:31] LABS: ALBUMIN/GLOBULIN RATIO 1.4 (1.0-2.2); BILIRUBIN,TOTAL 0.5 mg/dL (0.2-1.0); CALCIUM 9.3 mg/dL (8.5-10.3); CREATININE 0.7 mg/dL (0.4-1.0); POTASSIUM 3.8 mmol/L (3.5-5.0); TOTAL PROTEIN 7.3 g/dL (6.7-8.2)
[2016-12-18] MEDS ORDERED: IOPAMIDOL-300 100 ML VIAL IVP ONE (17:57)
--- NOTE | 2016-12-18 18:12 | CT Preliminary Report ---
Exam: CT Abdomen/Pelvis W/ IMPRESSION: 1. Stable large anterior abdominal wall hernia measuring approximately 10 x 20 cm. Hernia neck is 6 c m. No evidence of associated obstruction or inflammation. 2. Stable splenomegaly. 3. No clearly acute abnormalities to account for the patient's presentation. [facility] SITE ID: [id number]
--- NOTE | 2016-12-18 18:15 | CT Report ---
EXAM: CT ABDOMEN AND PELVIS EXAM DATE: 12/18/2016 05:55 PM. CLINICAL HISTORY: Abdominal pain COMPARISONS: 09/03/2016. TECHNIQUE: Routine helical CT imaging was performed through the abdomen and pelvis. IV contrast: 100 cc Isovue-300. Enteric contrast: No. Reconstructions: Coronal and sagittal. In accordance with CT protocol optimization, one or more of the following dose reduction techniques w ere utilized for this exam: automated exposure control, adjustment of mA and/or KV based on patient s ize, or use of iterative reconstructive technique. FINDINGS: Lung Bases: Unremarkable. Liver: Normal. No masses. Gallbladder/Bile Ducts: The gallbladder is surgically absent. No significant bile duct dilatation. Spleen: There is splenomegaly. Stable 1.5 cm hypodensity within the inferior spleen could represent c yst or hemangioma. Pancreas: Normal. Adrenal Glands: Normal. Kidneys: Normal. No masses or hydronephrosis. Peritoneal Cavity/Bowel: Stomach, small bowel, and colon demonstrate no acute abnormalities. There is a large, partially imaged anterior abdominal wall hernia. It measures approximately 10 x 20 cm. Diana ia neck is [address] evidence of significant associated inflammation. No obstruction. The appendix is not definitely seen. No evidence of pericecal inflammation. Pelvic Organs: Normal. The bladder and visualized pelvic organs are within normal limits. Vasculature: No aneurysms or other significant abnormality. Bones: No significant abnormality. Other: None. IMPRESSION: 1. Stable large anterior abdominal wall hernia measuring approximately 10 x 20 cm. Hernia neck is 6 c m. No evidence of associated obstruction or inflammation. 2. Stable splenomegaly. 3. No clearly acute abnormalities to account for the patient's presentation. [facility] Referring Provider Line: [phone] SITE ID: [id number]
--- NOTE | 2016-12-18 18:27 | ED Physician Documentation ---
PD HPI ABD PAIN - Stated complaint Stated Complaint: ABD PX - Chief complaint Chief Complaint: Abd Pain - History obtained from History obtained from: Patient - History of Present Illness Timing - onset: How many days ago (4) Timing - duration: Days (4) Timing - details: Still present Location: All over / everywhere Associated symptoms: Nausea. No: Fever, Vomiting Similar symptoms before: Diagnosis (History of ventral hernia.) Recently seen: Clinic - Additional information Additional information: The patient is a 41-year-old morbidly obese female with history of ventral hernia, who presents with abdominal pain of 4 days' duration. She reports associated nausea, but denies vomiting. She denies fever or dysuria. She has had multiple soft stools for the past 6 days. She was seen in clinic today, and subsequently was sent here for further evaluation and treatment. Her past medical history is significant for mesh repair of ventral hernia in June 2010 and again in March 2012. She is status post cholecystectomy. She has a history of psychiatric hospitalizations for schizoaffective disorder with depression and anxiety, and PTSD. Review of Systems Constitutional: denies: Fever Nose: denies: Congestion Throat: denies: Sore throat Cardiac: denies: Chest pain / pressure Respiratory: denies: Dyspnea, Cough GI: reports: Abdominal Pain, Nausea, Diarrhea (soft stool.). denies: Vomiting, Bloody / black stool : denies: Dysuria Skin: denies: Rash Musculoskeletal: denies: Back pain, Extremity swelling Neurologic: denies: Headache PD PAST MEDICAL HISTORY - Past Medical History Past Medical History: Yes Cardiovascular: Hypertension, Deep vein thrombosis, Pulmonary embolism Neuro: Peripheral neuropathy, Seizure disorder Endocrine/Autoimmune: Type 2 diabetes GI: Other (Recurrent ventral hernia since July,.) : Renal insuffiency Psych: Depression, Anxiety, Bipolar disorder, Schizophrenia, Other Musculoskeletal: Osteoarthritis - Past Surgical History Past Surgical History: Yes General: Cholecystectomy, Other (Ventral hernia repair X 2, with mesh, 06/2010 and 03/2012.) - Present Medications Home Medications: Ambulatory Orders Medication Instructions Recorded Confirmed Ascorbic Acid [Vitamin C] 500 mg PO DAILY 09/28/16 12/18/16 Clotrimazole [Clotrimazole 3] 1 applic BID 09/28/16 12/18/16 Ferrous Sulfate 325 mg PO DAILY 09/28/16 12/18/16 Furosemide [Lasix] 40 mg PO DAILY 09/28/16 12/18/16 Gabapentin 200 mg PO BID 09/28/16 12/18/16 Insulin Aspart [NovoLOG] 6 units SUBQ TID 09/28/16 12/18/16 Lisinopril 2.5 mg PO DAILY 09/28/16 12/18/16 Lorazepam [Ativan] 1 mg PO QID PRN 09/28/16 12/18/16 Losartan Potassium 25 mg PO DAILY 09/28/16 12/18/16 Metformin HCl 1,000 mg PO BID 09/28/16 12/18/16 Metoclopramide [Reglan] 10 mg PO BID 09/28/16 12/18/16 Rivaroxaban [Xarelto] 1 each PO DAILY 09/28/16 12/18/16 Rosuvastatin Calcium [Crestor] 40 mg PO DAILY 09/28/16 12/18/16 Tramadol HCl 50 mg PO QID PRN 09/28/16 12/18/16 lamoTRIgine [LaMICtal] 200 mg PO DAILY 09/28/16 12/18/16 raNITIdine [Zantac] 150 mg PO BID 09/28/16 12/18/16 Docusate Sodium 100 mg DAILY PRN 10/26/16 12/18/16 Escitalopram [Lexapro] 10 mg PO DAILY 12/18/16 12/18/16 Perphenazine [Trilafon] 8 mg PO BID 12/18/16 12/18/16 - Allergies Allergies/Adverse Reactions: Allergies Allergy/AdvReac Type Severity Reaction Status Date / Time bupropion HCl * Allergy Unknown Verified 10/26/16 10:42 [From Wellbutrin] cephalexin monohydrate * Allergy Rash Verified 10/26/16 10:42 [From Keflex] codeine Allergy Unknown Verified 10/26/16 10:42 fluoxetine HCl * Allergy Anaphylaxis Verified 10/26/16 10:42 [From Prozac] lithium Allergy Unknown Verified 10/26/16 10:42 Penicillins Allergy Rash Verified 10/26/16 10:42 phenytoin sodium * Allergy Rash Verified 10/26/16 10:42 [From Dilantin] phenytoin sodium extended * Allergy Rash Verified 10/26/16 10:42 [From Dilantin] - Social History Does the pt smoke?: No Smoking Status: Never smoker Does the pt drink ETOH?: Yes Does the pt have substance abuse?: No - Immunizations Immunizations are current?: Yes PD ED PE NORMAL - Vitals Vital signs reviewed: Yes (normal) - General General: Alert and oriented X 3, Other (Morbidly obese.) - HEENT HEENT: Atraumatic, Moist mucous membranes, Pharynx benign - Neck Neck: No adenopathy - Cardiac Cardiac: RRR, No murmur - Respiratory Respiratory: No respiratory distress, Clear bilaterally - Abdomen Abdomen: Normal bowel sounds, Soft, Other (Large ventral hernia with reducible bowel contents.) - Back Back: No CVA TTP - Derm Derm: No rash - Extremities Extremities: No edema - Neuro Neuro: Alert and oriented X 3, No motor deficit, Normal speech Results - Vitals Vitals: Oxygen O2 Source Room air - Labs Labs: Laboratory Tests 12/18/16 12/18/16 12/18/16 17:00 17:00 18:00 WBC 7.9 RBC 5.41 H Hgb 14.7 Hct 43.6 MCV 80.5 L MCH 27.1 MCHC 33.7 RDW 15.5 H Plt Count 283 MPV 7.9 Neut # 4.8 Lymph # 2.5 Gulf # 0.5 Eos # 0.0 Baso # 0.2 H Absolute Nucleated RBC 0.00 Nucleated RBCs 0.0 Sodium 138 Potassium 3.8 Chloride 97 L Carbon Dioxide 30 Anion Gap 11.0 BUN 11 Creatinine 0.7 Estimated GFR (MDRD) 93 Glucose 165 H Calcium 9.3 Total Bilirubin 0.5 AST 13 ALT 13 Alkaline Phosphatase 103 Total Protein 7.3 Albumin 4.2 Globulin 3.1 Albumin/Globulin Ratio 1.4 Lipase 15 L Urine Color YELLOW Urine Clarity CLEAR Urine pH 6.0 Ur Specific [place] 1.010 Urine Protein NEGATIVE Urine Glucose (UA) NEGATIVE Urine Ketones NEGATIVE Urine Occult Blood NEGATIVE Urine Nitrite NEGATIVE Urine Bilirubin NEGATIVE Urine Urobilinogen 0.2 (NORMAL) Ur Leukocyte Esterase NEGATIVE Ur Microscopic Review NOT INDICATED Urine Culture Comments NOT INDICATED - Rads (name of study) CT abd/pelvis w/IV contrast Radiology: Prelim report reviewed, EMP read contemporaneously, See rad report ( 1. Stable large anterior abdominal wall hernia measuring approximately 10 x 20 cm. Hernia neck is 6 cm. No evidence of associated obstruction or inflammation. 2. Stable splenomegaly.) PD MEDICAL DECISION MAKING - ED course Complexity details: reviewed results, re-evaluated patient, considered differential, d/w patient, d/w family ED course: The patient's presentation is significant for abdominal pain associated with a large ventral hernia. The hernia is reducible but promptly re-herniates. CBC, chemistry panel, and urinalysis are unremarkable. CT scan of the abdomen and pelvis reveals no evidence of bowel obstruction. Treatment in the emergency department included administration of normal saline IV, hydromorphone 1 mg IV, and ondansetron 4 mg IV. 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 Departure - Departure Disposition: 01 Home, Self Care Clinical Impression: Abdominal pain Qualifiers: Abdominal location: generalized Qualified Code(s): R10.84 - Generalized abdominal pain Ventral hernia Qualifiers: Obstruction and gangrene presence: without obstruction or gangrene Qualified Code(s): K43.9 - Ventral hernia without obstruction or gangrene Condition: Stable Instructions: Abdominal Pain Follow-Up: Sha Duong PA-C [Primary Care Provider] - [facility] [Provider Group] Comments: You can use Tylenol if needed for discomfort. Continue metoclopramide as previously prescribed. Follow-up with your primary physician or with general surgery. Call to schedule appointment. Return to the emergency department if you develop increasing abdominal pain, persistent vomiting, or otherwise worsening symptoms. Discharge Date/Time: 12/18/16 19:00
[2016-12-18 18:33] LABS: BILIRUBIN,URINE NEGATIVE (NEGATIVE)
[2016-12-18 18:40] LABS: UA CHARGE (STRIP ONLY) YES; UR CULTURE IF IND NOT INDICATED
[2016-12-18 18:45] VITALS: BP 110/68
== END 2016-12-18 19:00 | disposition home or self-care (01) ==
LOC: ED 15:37
DX: R10.84 Generalized abdominal pain (principal); E66.01 Morbid (severe) obesity due to excess calories; I10 Essential (primary) hypertension; E11.42 Type 2 diabetes mellitus with diabetic polyneuropathy; Z79.84 Long term (current) use of oral hypoglycemic drugs; Z86.718 Personal history of other venous thrombosis and embolism; Z86.711 Personal history of pulmonary embolism
CPT/HCPCS: 36415; 74177; 80053; 81003; 83690; 85025; 96374; 96375; 99283; 99284; J1170; Q9967; 81001; 87086

== ENCOUNTER 2016-12-23 15:16 | Outpatient (CLI) | payer MEDICARE, MEDICAID | END 2016-12-23 15:17 | disposition critical access hospital (66) | LOC: EMS 15:16 | PROVIDERS: ATTEND Surgery | DX: R10.9 Unspecified abdominal pain (principal) | CPT/HCPCS: A0425; A0427 ==

== ENCOUNTER 2016-12-23 15:45 | Emergency (ER) | payer MEDICARE, MEDICAID ==
[2016-12-23] MEDS ORDERED: MORPHINE 10 MG/ML VIAL IM STA (16:20)
--- NOTE | 2016-12-23 16:24 | ED Physician Documentation ---
PD HPI ABD PAIN - Stated complaint Stated Complaint: ABD PX - Chief complaint Chief Complaint: Abd Pain - History obtained from History obtained from: Patient - History of Present Illness Timing - onset: Other (This is a very pleasant morbidly obese 41-year-old woman who has had 2 ventral hernia repairs and has other comorbidities including but not limited to history of PE, on anticoagulation, diabetes, obstructive sleep apnea and psychiatric issues. About a week and a half ago she developed anterior abdominal pain, was seen here Wednesday and diagnosed with a large ventral hernia, rolling over today for a bed bath she felt burning anterior pain and the pain is worse but there is no associated vomiting, and she has had 2 bowel movements today. There is no fever.) Review of Systems Constitutional: denies: Fever, Chills Throat: denies: Dental pain / toothache, Sore throat Cardiac: denies: Chest pain / pressure, Palpitations Respiratory: denies: Dyspnea, Cough PD PAST MEDICAL HISTORY - Past Medical History Cardiovascular: Hypertension, Deep vein thrombosis, Pulmonary embolism Neuro: Peripheral neuropathy, Seizure disorder Endocrine/Autoimmune: Type 2 diabetes GI: Other (Recurrent ventral hernia since July,.) : Renal insuffiency Psych: Depression, Anxiety, Bipolar disorder, Schizophrenia, Other Musculoskeletal: Osteoarthritis - Past Surgical History Past Surgical History: Yes General: Cholecystectomy, Other (Ventral hernia repair X 2, with mesh, 06/2010 and 03/2012.) - Present Medications Home Medications: Ambulatory Orders Medication Instructions Recorded Confirmed Ascorbic Acid [Vitamin C] 500 mg PO DAILY 09/28/16 12/18/16 Clotrimazole [Clotrimazole 3] 1 applic BID 09/28/16 12/18/16 Ferrous Sulfate 325 mg PO DAILY 09/28/16 12/18/16 Furosemide [Lasix] 40 mg PO DAILY 09/28/16 12/18/16 Gabapentin 200 mg PO BID 09/28/16 12/18/16 Insulin Aspart [NovoLOG] 6 units SUBQ TID 09/28/16 12/18/16 Lisinopril 2.5 mg PO DAILY 09/28/16 12/18/16 Lorazepam [Ativan] 1 mg PO QID PRN 09/28/16 12/18/16 Losartan Potassium 25 mg PO DAILY 09/28/16 12/18/16 Metformin HCl 1,000 mg PO BID 09/28/16 12/18/16 Metoclopramide [Reglan] 10 mg PO BID 09/28/16 12/18/16 Rivaroxaban [Xarelto] 1 each PO DAILY 09/28/16 12/18/16 Rosuvastatin Calcium [Crestor] 40 mg PO DAILY 09/28/16 12/18/16 Tramadol HCl 50 mg PO QID PRN 09/28/16 12/18/16 lamoTRIgine [LaMICtal] 200 mg PO DAILY 09/28/16 12/18/16 raNITIdine [Zantac] 150 mg PO BID 09/28/16 12/18/16 Docusate Sodium 100 mg DAILY PRN 10/26/16 12/18/16 Escitalopram [Lexapro] 10 mg PO DAILY 12/18/16 12/18/16 Perphenazine [Trilafon] 8 mg PO BID 12/18/16 12/18/16 Morphine Ir [Ms Ir] 15 mg PO Q6H PRN #15 tablet 12/23/16 - Allergies Allergies/Adverse Reactions: Allergies Allergy/AdvReac Type Severity Reaction Status Date / Time bupropion HCl * Allergy Unknown Verified 10/26/16 10:42 [From Wellbutrin] cephalexin monohydrate * Allergy Rash Verified 10/26/16 10:42 [From Keflex] codeine Allergy Unknown Verified 10/26/16 10:42 fluoxetine HCl * Allergy Anaphylaxis Verified 10/26/16 10:42 [From Prozac] lithium Allergy Unknown Verified 10/26/16 10:42 Penicillins Allergy Rash Verified 10/26/16 10:42 phenytoin sodium * Allergy Rash Verified 10/26/16 10:42 [From Dilantin] phenytoin sodium extended * Allergy Rash Verified 10/26/16 10:42 [From Dilantin] - Social History Does the pt smoke?: No Smoking Status: Never smoker Does the pt drink ETOH?: Yes Does the pt have substance abuse?: No - Immunizations Immunizations are current?: Yes PD ED PE NORMAL - Vitals Vital signs reviewed: Yes - General General: Alert and oriented X 3, No acute distress - Abdomen Abdomen: Other (She has normal bowel tones, there is a large palpable ventral hernia which is focally tender but there is no diffuse tenderness, no skin changes.) - Neuro Neuro: Alert and oriented X 3, Normal speech - Psych Psych: Normal mood, Normal affect Results - Vitals Vitals: Vital Signs - 24 hr 12/23/16 15:56 Temperature 36.8 C Heart Rate 84 Respiratory 22 Rate Blood Pressure 113/88 H O2 Saturation 99 Oxygen O2 Source Room air PD MEDICAL DECISION MAKING - ED course ED course: This is a 41-year-old woman who is fairly complicated, anticoagulated with a large ventral hernia and morbid obesity as well as other comorbidities who presents with significant pain from ventral hernia but there is no clinical evidence of strangulation or incarceration. There is no diffuse tenderness and no evidence of bowel obstruction. She will need to see a surgeon at a tertiary center for follow-up and she will see her doctor tomorrow for a referral. Departure - Departure Disposition: 01 Home, Self Care Clinical Impression: Ventral hernia, recurrent Condition: Good Record reviewed to determine appropriate education?: Yes Prescriptions: Morphine Ir [Ms Ir] 15 mg PO Q6H PRN #15 tablet PRN Reason: Pain Comments: THERE IS NO EVIDENCE OF Strangulation or incarceration clinically at this juncture, follow-up with your doctor tomorrow and discuss referral to 1 of the larger centers in [place] such as the [facility] or [facility] for follow-up with a bariatric surgeon. Your blood pressure was elevated today on check into the emergency department. This does not mean that you have hypertension, it is a common phenomenon to come to the emergency department and have elevated blood pressure. I recommend that she see your primary care physician within the week to have it rechecked when you are feeling better. Do not drink or drive while taking narcotic pain medication. Note that many narcotic pain relievers also contain Tylenol/acetaminophen. Please ensure that your total dose of acetaminophen from all sources does not exceed 3 g (3000 mg) per day. You may get constipated while on this medication. Take a stool softener such as Colace twice a day while you are on it. Also add an [id number] laxative such as senna or MiraLAX on any day that you do not have a bowel movement. If you received a narcotic pain medication or sedative while in the emergency department, do not drive for the next 24 hours.
[2016-12-23] MEDS ORDERED: MORPHINE 10 MG/ML VIAL ONE (16:28)
[2016-12-23 17:34] VITALS: BP 129/80
== END 2016-12-23 17:34 | disposition home or self-care (01) ==
LOC: EDBD → EDUNIT# → ED 15:45
DX: K43.2 Incisional hernia without obstruction or gangrene (principal); E66.01 Morbid (severe) obesity due to excess calories; I10 Essential (primary) hypertension; E11.42 Type 2 diabetes mellitus with diabetic polyneuropathy; Z79.4 Long term (current) use of insulin; Z79.84 Long term (current) use of oral hypoglycemic drugs; G47.33 Obstructive sleep apnea (adult) (pediatric); M19.90 Unspecified osteoarthritis, unspecified site; N28.9 Disorder of kidney and ureter, unspecified; Z86.711 Personal history of pulmonary embolism; Z86.718 Personal history of other venous thrombosis and embolism; Z79.01 Long term (current) use of anticoagulants
CPT/HCPCS: 96372; 99283

== ENCOUNTER 2016-12-26 12:32 | Outpatient (CLI) | payer MEDICARE, MEDICAID | END 2016-12-26 12:33 | disposition critical access hospital (66) | LOC: EMS 12:32 | PROVIDERS: ATTEND Surgery | DX: R10.9 Unspecified abdominal pain (principal) | CPT/HCPCS: A0425; A0429 ==

== ENCOUNTER 2016-12-26 13:05 | Emergency (ER) | payer MEDICARE, MEDICAID ==
--- NOTE | 2016-12-26 14:28 | ED Physician Documentation ---
PD HPI ABD PAIN - Stated complaint Stated Complaint: ABD PX - Chief complaint Chief Complaint: Abd Pain - History obtained from History obtained from: Patient - History of Present Illness Timing - onset: How many weeks ago (few) Timing - duration: Weeks (has had pain in hernia area of abdomen for weeks, and seen here few days ago due to worsening pain. She is very obese so is to get referral to bariatric team for evaluation of repair of it.) Timing - details: Gradual onset, Waxing and waning Quality: Aching, Sharp, Pain Location: Periumbilical, Other (mid abdomen) Radiation: No: Lower back, Left flank, Right flank Improved by: Laying still. No: Eating, Position Worsened by: Moving, Palpation. No: Eating Associated symptoms: No: Fever, Nausea, Vomiting, Diarrhea, Dysuria Similar symptoms before: Diagnosis (presumed coming from ventral hernia causing pain.) Recently seen: Emergency Dept Review of Systems Constitutional: denies: Fever, Chills Nose: denies: Rhinorrhea / runny nose, Congestion Throat: denies: Sore throat Respiratory: denies: Cough GI: denies: Vomiting, Constipation, Diarrhea, Bloody / black stool : denies: Dysuria, Frequency Skin: reports: Other (noted some blood around belly button this morning.) PD PAST MEDICAL HISTORY - Past Medical History Cardiovascular: Hypertension, Deep vein thrombosis, Pulmonary embolism Neuro: Peripheral neuropathy, Seizure disorder Endocrine/Autoimmune: Type 2 diabetes GI: Other : Renal insuffiency Psych: Depression, Anxiety, Bipolar disorder, Schizophrenia, Other Musculoskeletal: Osteoarthritis - Past Surgical History Past Surgical History: Yes General: Cholecystectomy, Other - Present Medications Home Medications: Ambulatory Orders Medication Instructions Recorded Confirmed Ascorbic Acid [Vitamin C] 500 mg PO DAILY 09/28/16 12/18/16 Clotrimazole [Clotrimazole 3] 1 applic BID 09/28/16 12/18/16 Ferrous Sulfate 325 mg PO DAILY 09/28/16 12/18/16 Furosemide [Lasix] 40 mg PO DAILY 09/28/16 12/18/16 Gabapentin 200 mg PO BID 09/28/16 12/18/16 Insulin Aspart [NovoLOG] 6 units SUBQ TID 09/28/16 12/18/16 Lisinopril 2.5 mg PO DAILY 09/28/16 12/18/16 Lorazepam [Ativan] 1 mg PO QID PRN 09/28/16 12/18/16 Losartan Potassium 25 mg PO DAILY 09/28/16 12/18/16 Metformin HCl 1,000 mg PO BID 09/28/16 12/18/16 Metoclopramide [Reglan] 10 mg PO BID 09/28/16 12/18/16 Rivaroxaban [Xarelto] 1 each PO DAILY 09/28/16 12/18/16 Rosuvastatin Calcium [Crestor] 40 mg PO DAILY 09/28/16 12/18/16 Tramadol HCl 50 mg PO QID PRN 09/28/16 12/18/16 lamoTRIgine [LaMICtal] 200 mg PO DAILY 09/28/16 12/18/16 raNITIdine [Zantac] 150 mg PO BID 09/28/16 12/18/16 Docusate Sodium 100 mg DAILY PRN 10/26/16 12/18/16 Escitalopram [Lexapro] 10 mg PO DAILY 12/18/16 12/18/16 Perphenazine [Trilafon] 8 mg PO BID 12/18/16 12/18/16 Morphine Ir [Ms Ir] 15 mg PO Q6H PRN #15 tablet 12/23/16 Mupirocin 1 applic TP TID #15 oint...g. 12/26/16 Ondansetron HCl [Zofran] 4 mg PO Q6H PRN #20 tablet 12/26/16 Oxycodone HCl/Acetaminophen 1 each PO Q6H PRN #20 tablet 12/26/16 [Percocet 7.5-325 mg Tablet] Sulfamethox/Trimeth 800/160 1 each PO BID #14 tablet 12/26/16 [Bactrim Ds 800/160] - Allergies Allergies/Adverse Reactions: Allergies Allergy/AdvReac Type Severity Reaction Status Date / Time bupropion HCl * Allergy Unknown Verified 12/26/16 13:12 [From Wellbutrin] cephalexin monohydrate * Allergy Rash Verified 12/26/16 13:12 [From Keflex] codeine Allergy Unknown Verified 12/26/16 13:12 fluoxetine HCl * Allergy Anaphylaxis Verified 12/26/16 13:12 [From Prozac] lithium Allergy Unknown Verified 12/26/16 13:12 Penicillins Allergy Rash Verified 12/26/16 13:12 phenytoin sodium * Allergy Rash Verified 12/26/16 13:12 [From Dilantin] phenytoin sodium extended * Allergy Rash Verified 12/26/16 13:12 [From Dilantin] - Social History Does the pt smoke?: No Smoking Status: Never smoker Does the pt drink ETOH?: Yes Does the pt have substance abuse?: No - Immunizations Immunizations are current?: Yes PD ED PE NORMAL - Vitals Vital signs reviewed: Yes - General General: Alert and oriented X 3, Well developed/nourished - HEENT HEENT: Pharynx benign - Neck Neck: Supple, no meningeal sign, No adenopathy - Cardiac Cardiac: RRR, No murmur - Respiratory Respiratory: Clear bilaterally - Abdomen Abdomen: Other (very obese female, with obvious ventral hernia that is tender to palpation but soft and reducible. The umbilicus is deep and with opening of it, there is moderate redness, tenderness, and superficial breakdown of tissue c /w infection. Slight watery drainage but not thick purulent per se. ) - Back Back: No CVA TTP - Derm Derm: Normal color, Warm and dry Results - Vitals Vitals: Vital Signs - 24 hr 12/26/16 12/26/16 13:06 14:50 Temperature 37.2 C Heart Rate 67 67 Respiratory 16 12 Rate Blood Pressure 114/78 112/69 O2 Saturation 96 100 Oxygen O2 Source Room air - Labs Labs: Microbiology 12/26/16 14:42 Wound Culture - Preliminary Abdomen PD MEDICAL DECISION MAKING - ED course Complexity details: considered differential (she has tender but reducible large hernia, with prior CT showing large mouth of 6 cm. So unlikely to incarcerate. There is redness and tenderness deep umbilical area so her pain may be more from infection of the tissue. She does not seem septic. ), d/w patient Departure - Departure Disposition: 01 Home, Self Care Clinical Impression: Abscess or cellulitis of umbilicus Abdominal pain Qualifiers: Abdominal location: periumbilical Qualified Code(s): R10.33 - Periumbilical pain Ventral hernia Qualifiers: Obstruction and gangrene presence: without obstruction or gangrene Qualified Code(s): K43.9 - Ventral hernia without obstruction or gangrene Condition: Stable Record reviewed to determine appropriate education?: Yes Instructions: ED Infec Skin Cellulitis Follow-Up: Sha Duong PA-C [Primary Care Provider] - Prescriptions: Sulfamethox/Trimeth 800/160 [Bactrim Ds 800/160] 1 each PO BID #14 tablet Mupirocin 1 applic TP TID #15 oint...g. Oxycodone HCl/Acetaminophen [Percocet 7.5-325 mg Tablet] 1 each PO Q6H PRN #20 tablet PRN Reason: Pain Ondansetron HCl [Zofran] 4 mg PO Q6H PRN #20 tablet PRN Reason: Nausea / Vomiting Comments: It appears to be an infection of the skin and tissue down deep in the bellybutton area. There is a little small area of raw skin that had been the bleeding source. The infection there may be what has been causing of the pain more. Use Bactrim twice daily for a week. Clean the bellybutton area with soap and water couple of times a day and apply mupirocin ointment lightly into the area. Use ondansetron if needed for nausea prior to taking either the previous morphine or I also prescribed Percocet tablets to see if they would help with the pain. Drink lots of fluids. Follow-up with your primary care in 3-4 days. The culture result I have obtained today will result in 2 or 3 days. Discharge Date/Time: 12/26/16 16:06
[2016-12-26] MEDS ORDERED: HYDROmorphone 1 MG/ML SYRINGE IM STA (14:43)
[2016-12-26] MEDS ORDERED: SULFAMETH/TRIMETH DS 800/160 MG TABLET PO STA (14:43)
[2016-12-26] MEDS ORDERED: ONDANSETRON 4 MG/2 ML VIAL IM STA (14:43)
[2016-12-26 14:51] VITALS: BP 112/69
[2016-12-26] MEDS ORDERED: HYDROmorphone 1 MG/ML SYRINGE ONE (15:02)
[2016-12-26] MEDS ORDERED: ONDANSETRON 4 MG/2 ML VIAL ONE (15:02)
== END 2016-12-26 16:06 | disposition home or self-care (01) ==
LOC: EDUNIT# → ED 13:05
DX: R10.33 Periumbilical pain (principal); K43.9 Ventral hernia without obstruction or gangrene; I10 Essential (primary) hypertension; E11.42 Type 2 diabetes mellitus with diabetic polyneuropathy; Z79.4 Long term (current) use of insulin; Z86.718 Personal history of other venous thrombosis and embolism; Z86.711 Personal history of pulmonary embolism
CPT/HCPCS: 87070; 87205; 96372; 99283; 99284; J1170

== ENCOUNTER 2016-12-28 10:15 | Outpatient (CLI) | payer MEDICARE, MEDICAID | END 2016-12-28 10:16 | disposition short-term general hospital (02) | LOC: EMS 10:15 | PROVIDERS: ATTEND Surgery | DX: R10.9 Unspecified abdominal pain (principal); R11.2 Nausea with vomiting, unspecified | CPT/HCPCS: A0425; A0429 ==

== ENCOUNTER 2017-05-03 13:30 | Outpatient (CLI) | payer MEDICARE, MEDICAID | END 2017-05-03 13:31 | disposition home or self-care (01) | LOC: SC 13:30 | PROVIDERS: ATTEND Internal Medicine Pulmonary Disease | DX: G47.33 Obstructive sleep apnea (adult) (pediatric) (principal) | CPT/HCPCS: 99203; G0463; 99212 ==

== ENCOUNTER 2017-05-13 08:00 | Outpatient (CLI) | payer MEDICARE, MEDICAID ==
[2017-05-13 18:51] LABS: BASOPHILS % (AUTO) 0.2 %; EOSINOPHILS % (AUTO) 0.6 %; HGB - HEMOGLOBIN 13.4 g/dL (12.0-16.0); LYMPHOCYTES # (AUTO) 1.6 10^3/uL (1.5-3.5); LYMPHOCYTES % (AUTO) 24.3 %; MEAN CORPUSCULAR HEMOGLOBIN 27.3 pg (27.0-31.0); MEAN CORPUSCULAR HGB CONC 32.5 g/dL (32.0-36.0); MEAN CORPUSCULAR VOLUME 83.8 fL (81.0-99.0); MEAN PLATELET VOLUME 8.9 fL (7.9-10.8); MEAN RETIC VALUE 96.4; MONOCYTES # (AUTO) 0.4 10^3/uL (0.0-1.0); MONOCYTES % (AUTO) 5.4 %; NEUTROPHILS # (AUTO) 4.6 10^3/uL (1.5-6.6); NEUTROPHILS % (AUTO) 69.5 %; PLT - PLATELET COUNT 237 10^3/uL (130-450); RED BLOOD COUNT 4.92 10^6/uL (4.20-5.40); RED CELL DISTRIBUTION WIDTH 14.5 % (12.0-15.0); WHITE BLOOD COUNT 6.7 x10^3/uL (4.8-10.8)
[2017-05-13 19:48] LABS: FERRITIN 12.9 ng/mL (11.0-306.8)
[2017-05-13 19:51] LABS: FOLATE 23.07 ng/mL (5.90 - >24.8)
[2017-05-13 20:01] LABS: % IRON SATURATION 6 % (20-50); IRON 23 ug/dL (28-170); TOTAL IRON BINDING CAPACITY 354 ug/dL (250-450); TRANSFERRIN 253 mg/dL (192-382)
== END 2017-05-13 08:01 ==
LOC: LAB.N 08:00
PROVIDERS: ATTEND Family Medicine
DX: D64.9 Anemia, unspecified (principal)
CPT/HCPCS: 36415; 82607; 82728; 82746; 83540; 84466; 85025; 85044

== ENCOUNTER 2017-05-23 21:09 | Outpatient (CLI) | payer MEDICARE, MEDICAID | END 2017-05-23 21:10 | disposition critical access hospital (66) | LOC: EMS 21:09 | PROVIDERS: ATTEND Surgery | DX: R56.9 Unspecified convulsions (principal); R51 Headache | CPT/HCPCS: A0425; A0429 ==

== ENCOUNTER 2017-05-23 21:31 | Emergency (ER) | payer MEDICARE, MEDICAID ==
--- NOTE | 2017-05-23 21:42 | ED Physician Documentation ---
PD HPI SYNCOPE - Stated complaint Stated Complaint: SEIZURES - History obtained from History obtained from: Patient, EMS - History of Present Illness Witnessed: Witnessed Timing - onset: Today Duration: Minutes Preceding symptoms: None Associated symptoms: Seizure, Headache. No: Incontinant of urine, Vision changes Injury occurred: Fell Similar symptoms before: Work up / diagnostics, Treatment Recently seen: Not recently seen - Additional information Additional information: Patient is a 42 year old female with a history of seizure disorder who is presenting to the emergency department for seizures. According to patient, family and ems patient had four witnessed seizures today. the duration was varied and they were reported to be tonic clonic in nature. Upon initial evaluation by ems patient was not talking and the boyfriend stated that this was her post ictal state. patient was able to walk out to the ambulance without difficulty. Review of Systems Unable to obtain: Confused PD PAST MEDICAL HISTORY - Past Medical History Cardiovascular: Hypertension, Deep vein thrombosis, Pulmonary embolism Neuro: Peripheral neuropathy, Seizure disorder Endocrine/Autoimmune: Type 2 diabetes GI: Other : Renal insuffiency Psych: Depression, Anxiety, Bipolar disorder, Schizophrenia, Other Musculoskeletal: Osteoarthritis - Past Surgical History Past Surgical History: Yes General: Cholecystectomy, Other - Present Medications Home Medications: Ambulatory Orders Medication Instructions Recorded Confirmed Ascorbic Acid [Vitamin C] 500 mg PO DAILY 09/28/16 02/12/17 Clotrimazole [Clotrimazole 3] 1 applic BID 09/28/16 02/12/17 Ferrous Sulfate 325 mg PO DAILY 09/28/16 02/12/17 Furosemide [Lasix] 40 mg PO DAILY 09/28/16 02/12/17 Gabapentin 200 mg PO BID 09/28/16 02/12/17 Insulin Aspart [NovoLOG] 6 units SUBQ TID 09/28/16 02/12/17 Lisinopril 2.5 mg PO DAILY 09/28/16 02/12/17 Lorazepam [Ativan] 1 mg PO QID PRN 09/28/16 02/12/17 Losartan Potassium 25 mg PO DAILY 09/28/16 02/12/17 Metformin HCl 1,000 mg PO BID 09/28/16 02/12/17 Metoclopramide [Reglan] 20 mg PO BID 09/28/16 02/12/17 Rivaroxaban [Xarelto] 1 each PO DAILY 09/28/16 02/12/17 Rosuvastatin Calcium [Crestor] 40 mg PO DAILY 09/28/16 02/12/17 Tramadol HCl 50 mg PO QID PRN 09/28/16 02/12/17 lamoTRIgine [LaMICtal] 200 mg PO DAILY 09/28/16 02/12/17 raNITIdine [Zantac] 150 mg PO BID 09/28/16 02/12/17 Escitalopram [Lexapro] 10 mg PO DAILY 12/18/16 02/12/17 Lurasidone HCl [Latuda] 80 mg PO DAILY 02/12/17 02/12/17 Prazosin [Minipress] 1 mg PO QPM PRN 02/12/17 02/12/17 traZODone [Desyrel] 100 mg PO HS 02/12/17 02/12/17 - Allergies Allergies/Adverse Reactions: Allergies Allergy/AdvReac Type Severity Reaction Status Date / Time bupropion HCl * Allergy Unknown Verified 05/23/17 21:49 [From Wellbutrin] cephalexin monohydrate * Allergy Rash Verified 05/23/17 21:49 [From Keflex] codeine Allergy Unknown Verified 05/23/17 21:49 fluoxetine HCl * Allergy Anaphylaxis Verified 05/23/17 21:49 [From Prozac] lithium Allergy Unknown Verified 05/23/17 21:49 Penicillins Allergy Rash Verified 05/23/17 21:49 phenytoin sodium * Allergy Rash Verified 05/23/17 21:49 [From Dilantin] phenytoin sodium extended * Allergy Rash Verified 05/23/17 21:49 [From Dilantin] - Social History Does the pt smoke?: No Smoking Status: Never smoker Does the pt drink ETOH?: Yes Does the pt have substance abuse?: No - Immunizations Immunizations are current?: Yes PD ED PE NORMAL - Vitals Vital signs reviewed: Yes - General General: No acute distress - HEENT HEENT: Atraumatic - Neck Neck: Supple, no meningeal sign - Cardiac Cardiac: RRR, No murmur - Respiratory Respiratory: No respiratory distress, Clear bilaterally - Abdomen Abdomen: Soft, Other (obese) - Derm Derm: Normal color, No rash - Extremities Extremities: No deformity - Neuro Neuro: No motor deficit Results - Vitals Vitals: Vital Signs - 24 hr 05/23/17 05/23/17 05/23/17 21:34 22:20 23:32 Temperature 37.2 C 36.9 C Heart Rate 87 78 77 Respiratory 24 18 18 Rate Blood Pressure 134/78 H 131/73 H 127/84 H O2 Saturation 96 97 98 Oxygen O2 Source Room air - Labs Labs: Laboratory Tests 05/23/17 05/23/17 21:45 21:45 WBC 6.8 RBC 4.82 Hgb 13.3 Hct 39.3 MCV 81.6 MCH 27.6 MCHC 33.8 RDW 14.5 Plt Count 277 MPV 7.5 L Neut # 3.8 Lymph # 2.3 Ashe # 0.5 Eos # 0.1 Baso # 0.1 Absolute Nucleated RBC 0.01 Nucleated RBC % 0.2 Sodium 140 Potassium 4.0 Chloride 104 Carbon Dioxide 26 Anion Gap 10.0 BUN 9 Creatinine 0.8 Estimated GFR (MDRD) 79 L Glucose 198 H Calcium 8.9 Total Bilirubin 0.3 AST 19 ALT 18 Alkaline Phosphatase 91 Total Protein 6.6 L Albumin 3.6 Globulin 3.0 Albumin/Globulin Ratio 1.2 Lipase 10 L PD MEDICAL DECISION MAKING - ED course Complexity details: reviewed old records, reviewed results, re-evaluated patient , considered differential, d/w patient, d/w family ED course: Patient was seen and examined at bedside. Patient was awake and alert but would not speak. patient would write things down though. IV access was gained and labs were drawn. I was called into the room for seizure activity but the patient was hyperventilating but following commands and tracking. Patient was having a pseudoseizure. When patient finished she stated that she was hearing voices, had a mild headache and was nauseated. Patient was treated with haldol 5mg IV. Patient's symptoms resolved. A discussion was had with the patient and her boyfriend. he stated that they had been under a lot of stress. They were trying to move into a trailer but it didn't have a bathroom for the last week. patient has not been sleeping much at all. patient also reported that she had missed a dose of her lamictal. Patient had no neurogenic seizures while in the emergency department and was stable for discharge with outpatient follow up. Departure - Departure Disposition: 01 Home, Self Care Clinical Impression: Psychiatric pseudoseizure, Seizure Condition: Good Instructions: ED Seizure Recurrent Follow-Up: Kyle Matson MD [Primary Care Provider] - Within 3 Days Comments: Your diagnostics today were within normal limits. you should continue with your medications as prescribed. Lack of sleep and stress can contribute to breakthrough seizures. You should make sure you get adequate sleep over the next few days and decrease the amount of screen time. You should follow up with our doctor for further evaluation and care and can return to the emergency department at any time for new,worsening or uncontrollable symptoms.
[2017-05-23 22:03] LABS: BASOPHILS # (AUTO) 0.1 10^3/uL (0.0-0.1); EOSINOPHILS # (AUTO) 0.1 10^3/uL (0.0-0.7); EOSINOPHILS % (AUTO) 1.1 %; HGB - HEMOGLOBIN 13.3 g/dL (12.0-16.0); LYMPHOCYTES # (AUTO) 2.3 10^3/uL (1.5-3.5); LYMPHOCYTES % (AUTO) 34.5 %; MEAN CORPUSCULAR HEMOGLOBIN 27.6 pg (27.0-31.0); MEAN CORPUSCULAR HGB CONC 33.8 g/dL (32.0-36.0); MEAN CORPUSCULAR VOLUME 81.6 fL (81.0-99.0); MEAN PLATELET VOLUME 7.5 fL (7.9-10.8); MONOCYTES # (AUTO) 0.5 10^3/uL (0.0-1.0); MONOCYTES % (AUTO) 7.6 %; NEUTROPHILS # (AUTO) 3.8 10^3/uL (1.5-6.6); NEUTROPHILS % (AUTO) 55.8 %; PLT - PLATELET COUNT 277 10^3/uL (130-450); RED BLOOD COUNT 4.82 10^6/uL (4.20-5.40); RED CELL DISTRIBUTION WIDTH 14.5 % (12.0-15.0); WHITE BLOOD COUNT 6.8 x10^3/uL (4.8-10.8)
[2017-05-23 22:14] LABS: ALBUMIN 3.6 g/dL (3.2-5.5); ALBUMIN/GLOBULIN RATIO 1.2 (1.0-2.2); BILIRUBIN,TOTAL 0.3 mg/dL (0.2-1.0); CALCIUM 8.9 mg/dL (8.5-10.3); CREATININE 0.8 mg/dL (0.4-1.0); TOTAL PROTEIN 6.6 g/dL (6.7-8.2)
[2017-05-23] MEDS ORDERED: HALOPERIDOL 5 MG/ML VIAL IVP ONE (22:42)
[2017-05-23] MEDS ORDERED: HALOPERIDOL 5 MG/ML VIAL ONE (22:52)
[2017-05-23 23:33] VITALS: BP 127/84
== END 2017-05-23 23:46 | disposition home or self-care (01) ==
LOC: EDUNIT# → ED 21:31
DX: G40.909 Epilepsy, unspecified, not intractable, without status epilepticus (principal); E11.42 Type 2 diabetes mellitus with diabetic polyneuropathy; I10 Essential (primary) hypertension; Z79.4 Long term (current) use of insulin; Z86.718 Personal history of other venous thrombosis and embolism; Z86.711 Personal history of pulmonary embolism
CPT/HCPCS: 36415; 80053; 83690; 85025; 96374; 99284

== ENCOUNTER 2017-06-02 10:45 | Outpatient (CLI) | payer MEDICARE, MEDICAID ==
[2017-06-02 19:20] LABS: CALCIUM 8.9 mg/dL (8.5-10.3); CREATININE 0.6 mg/dL (0.4-1.0)
[2017-06-02 19:56] LABS: HB2 TOTAL 14.5 g/dL; HEMOGLOBIN A1C 1.06 g/dL; HEMOGLOBIN A1C % 8.8 % (4.6-6.2)
== END 2017-06-02 10:46 | disposition home or self-care (01) ==
LOC: LAB.N 10:45
PROVIDERS: ATTEND Family Medicine
DX: E11.9 Type 2 diabetes mellitus without complications (principal); R56.9 Unspecified convulsions
CPT/HCPCS: 36415; 80048; 80175; 83036

== ENCOUNTER 2017-06-16 21:55 | Outpatient (CLI) | payer MEDICARE, MEDICAID | END 2017-06-16 21:56 | disposition home or self-care (01) | LOC: SC 21:55 | PROVIDERS: ATTEND Internal Medicine Pulmonary Disease | DX: G47.33 Obstructive sleep apnea (adult) (pediatric) (principal); G47.61 Periodic limb movement disorder | CPT/HCPCS: 95810 ==

== ENCOUNTER 2017-07-08 09:05 | Outpatient (CLI) | payer MEDICARE, MEDICAID | END 2017-07-08 09:06 | disposition home or self-care (01) | LOC: SC 09:05 | PROVIDERS: ATTEND Nurse Practitioner Family | DX: G47.33 Obstructive sleep apnea (adult) (pediatric) (principal); G47.61 Periodic limb movement disorder | CPT/HCPCS: 99214; G0463; 99212 ==

== ENCOUNTER 2017-07-16 10:34 | Emergency (ER) | payer MEDICARE, MEDICAID ==
[2017-07-16] MEDS ORDERED: oxyCOD/ACETAMIN 5 MG/325 MG TABLET PO STA (12:20)
[2017-07-16] MEDS ORDERED: LIDOCAINE PATCH 5% TOP PRN (12:20)
[2017-07-16 13:20] LABS: HCG,QUALITATIVE BLOOD NEGATIVE
[2017-07-16 13:20] LABS: BILIRUBIN,URINE NEGATIVE (NEGATIVE); GLUCOSE, URINE (UA) >=1000 mg/dL (NEGATIVE); KETONES,URINE (UA) NEGATIVE (NEGATIVE); LEUKOCYTE ESTERASE, URINE NEGATIVE (NEGATIVE); NITRITE,URINE NEGATIVE (NEGATIVE); OCCULT BLOOD,URINE NEGATIVE (NEGATIVE); PROTEIN,URINE NEGATIVE (NEGATIVE); UROBILINOGEN,URINE 0.2 (NORMAL) E.U./dL (NORMAL)
[2017-07-16 13:26] LABS: CLARITY,URINE CLEAR (CLEAR)
--- NOTE | 2017-07-16 13:40 | ED Physician Documentation ---
History of Present Illness - Stated complaint Stated Complaint: GLF/BACK AND HIP PX - Chief complaint Chief Complaint: Ext Problem - Additonal information Additional information: hx from pt 42 f states she tripped over some plastic and fell alnding on her abd then was mad and picked up a table and even further aggrevated her ventral hernia fell the day before two on xarelto no head or neck pain no CP has t and l spine back pain and R knee and hip pain and abd pain not sure if she is otherwise well recently Review of Systems Constitutional: denies: Fever, Chills Ears: denies: Drainage/discharge Nose: denies: Epistaxis Cardiac: denies: Chest pain / pressure Respiratory: denies: Dyspnea GI: reports: Abdominal Pain : denies: Now EGA (hcg in ED neg) Musculoskeletal: reports: Back pain. denies: Neck pain Neurologic: denies: Headache, Head injury Endocrine: reports: Easy bruising / bleeding PD PAST MEDICAL HISTORY - Past Medical History Past Medical History: Yes Cardiovascular: Hypertension, Deep vein thrombosis, Pulmonary embolism Neuro: Peripheral neuropathy, Seizure disorder Endocrine/Autoimmune: Type 2 diabetes GI: Other : Renal insuffiency Psych: Depression, Anxiety, Bipolar disorder, Schizophrenia, Other Musculoskeletal: Osteoarthritis - Past Surgical History Past Surgical History: Yes General: Cholecystectomy, Other - Present Medications Home Medications: Ambulatory Orders Medication Instructions Recorded Confirmed Ascorbic Acid [Vitamin C] 500 mg PO DAILY 09/28/16 02/12/17 Clotrimazole [Clotrimazole 3] 1 applic BID 09/28/16 02/12/17 Ferrous Sulfate 325 mg PO DAILY 09/28/16 02/12/17 Furosemide [Lasix] 40 mg PO DAILY 09/28/16 02/12/17 Gabapentin 200 mg PO BID 09/28/16 02/12/17 Insulin Aspart [NovoLOG] 6 units SUBQ TID 09/28/16 02/12/17 Lisinopril 2.5 mg PO DAILY 09/28/16 02/12/17 Lorazepam [Ativan] 1 mg PO QID PRN 09/28/16 02/12/17 Losartan Potassium 25 mg PO DAILY 09/28/16 02/12/17 Metformin HCl 1,000 mg PO BID 09/28/16 02/12/17 Metoclopramide [Reglan] 20 mg PO BID 09/28/16 02/12/17 Rivaroxaban [Xarelto] 1 each PO DAILY 09/28/16 02/12/17 Rosuvastatin Calcium [Crestor] 40 mg PO DAILY 09/28/16 02/12/17 Tramadol HCl 50 mg PO QID PRN 09/28/16 02/12/17 lamoTRIgine [LaMICtal] 200 mg PO DAILY 09/28/16 02/12/17 raNITIdine [Zantac] 150 mg PO BID 09/28/16 02/12/17 Escitalopram [Lexapro] 10 mg PO DAILY 12/18/16 02/12/17 Lurasidone HCl [Latuda] 80 mg PO DAILY 02/12/17 02/12/17 Prazosin [Minipress] 1 mg PO QPM PRN 02/12/17 02/12/17 traZODone [Desyrel] 100 mg PO HS 02/12/17 02/12/17 Lidocaine Patch 5% [Lidoderm Patch] 1 each TOP DAILY PRN #10 patch 07/16/17 - Allergies Allergies/Adverse Reactions: Allergies Allergy/AdvReac Type Severity Reaction Status Date / Time bupropion HCl * Allergy Unknown Verified 07/16/17 10:40 [From Wellbutrin] cephalexin monohydrate * Allergy Rash Verified 07/16/17 10:40 [From Keflex] codeine Allergy Unknown Verified 07/16/17 10:40 fluoxetine HCl * Allergy Anaphylaxis Verified 07/16/17 10:40 [From Prozac] lithium Allergy Unknown Verified 07/16/17 10:40 Penicillins Allergy Rash Verified 07/16/17 10:40 phenytoin sodium * Allergy Rash Verified 07/16/17 10:40 [From Dilantin] phenytoin sodium extended * Allergy Rash Verified 07/16/17 10:40 [From Dilantin] - Social History Does the pt smoke?: No Smoking Status: Never smoker Does the pt drink ETOH?: Yes Does the pt have substance abuse?: No - Immunizations Immunizations are current?: Yes - POLST Patient has POLST: No PD ED PE NORMAL - Vitals Vital signs reviewed: Yes - General General: Alert and oriented X 3 - HEENT HEENT: Atraumatic - Neck Neck: No bony TTP - Cardiac Cardiac: RRR - Respiratory Respiratory: No respiratory distress, Clear bilaterally - Abdomen Abdomen: Soft, Other (TTP over rlq ventral hernia, large hernia cannot fully reduce) - Back Back: Other (T and L spine diffusely TTP) - Extremities Extremities: Other (TTP over R hip and knee - lef not short or rotated, no knee laxity appreciated, MSV intact) - Neuro Neuro: Alert and oriented X 3, final tester 2-12 intact, No motor deficit, Normal speech Eye Opening: Spontaneous Motor: Obeys Commands Verbal: Oriented GCS Score: 15 Results - Vitals Vitals: Vital Signs - 24 hr 07/16/17 07/16/17 10:45 13:48 Temperature 36.7 C 36.9 C Heart Rate 82 87 Respiratory 19 18 Rate Blood Pressure 145/74 H 113/68 O2 Saturation 97 94 Oxygen O2 Source Room air - Labs Labs: Laboratory Tests 07/16/17 07/16/17 12:33 13:10 Serum HCG, Qual NEGATIVE Urine Color YELLOW Urine Clarity CLEAR Urine pH 5.0 Ur Specific [place] 1.010 Urine Protein NEGATIVE Urine Glucose (UA) >=1000 H Urine Ketones NEGATIVE Urine Occult Blood NEGATIVE Urine Nitrite NEGATIVE Urine Bilirubin NEGATIVE Urine Urobilinogen 0.2 (NORMAL) Ur Leukocyte Esterase NEGATIVE Ur Microscopic Review NOT INDICATED Urine Culture Comments NOT INDICATED - Rads (name of study) CTH Radiology: See rad report (no acute) T spine Radiology: See rad report (no fx or dislocation) knee Radiology: See rad report (no acute) CT AP Radiology: See rad report (no acute trauma) Departure - Departure Disposition: 01 Home, Self Care Clinical Impression: Fall, Back sprain, Knee sprain, Contusion, hip, Abdominal contusion Condition: Good Instructions: ED Sprain Strain Lumbar, ED Sprain Knee, ED Contusion Lower Ext Follow-Up: Fidelina Barth PA-C [Primary Care Provider] - Prescriptions: Lidocaine Patch 5% [Lidoderm Patch] 1 each TOP DAILY PRN #10 patch PRN Reason: Pain Comments: All the imaging was fine No bleeding in your brain from being on xarelto No broken bones in your thoracic or lumbar spine. No problems with your hernia No fracture in your knee or hip So all the injuries seem to be soft tissue and I anticipate you will be stiff and sore for a few days but recover Recommend lidocaine patches, tylenol, and motrin as needed for the pain. Ice and elevation and an OMEGA wrap to your knee will help too
--- NOTE | 2017-07-16 14:22 | CT Report ---
EXAM: CT HEAD EXAM DATE: 07/16/2017 01:57 PM. CLINICAL HISTORY: Falls. COMPARISON: None. TECHNIQUE: Multiaxial CT images were obtained from the foramen magnum to the vertex. Reformats: Coron al. IV contrast: None. In accordance with CT protocol optimization, one or more of the following dose reduction techniques w ere utilized for this exam: automated exposure control, adjustment of mA and/or KV based on patient s ize, or use of iterative reconstructive technique. FINDINGS: Parenchyma: No intraparenchymal hemorrhage. No evidence of mass, midline shift, or CT findings of inf arction. Izquierdo-white differentiation is distinct. Extraaxial Spaces: Normal for age. No subdural or epidural collections identified. Ventricles: Normal in size and position. Sinuses and Orbits: Imaged paranasal sinuses, orbits, and mastoids show no significant abnormality. Bones: No evidence of fracture or calvarial defect. Other: None. IMPRESSION: No acute intracranial CT abnormality. [facility] Referring Provider Line: [phone] SITE ID: [id number]
--- NOTE | 2017-07-16 14:27 | CT Report ---
EXAM: CT ABDOMEN AND PELVIS EXAM DATE: 07/16/2017 02:16 PM. CLINICAL HISTORY: Fall, abd pain, lumbar pain, R hip pain. COMPARISONS: 12/18/2016. TECHNIQUE: Routine axial helical CT imaging was performed through the abdomen and pelvis without IV c ontrast. Reconstructions: Coronal and sagittal. In accordance with CT protocol optimization, one or more of the following dose reduction techniques w ere utilized for this exam: automated exposure control, adjustment of mA and/or KV based on patient s ize, or use of iterative reconstructive technique. FINDINGS: Lung Bases: Unremarkable. Abdominal Organs: No evidence of acute traumatic injury to the liver, spleen, pancreas, adrenal gland s, or kidneys. There is a stable rounded hypodensity within the inferior spleen. There is mild spleno megaly. Gallbladder/bile ducts: The gallbladder is surgically absent. No significant bile duct dilatation. Peritoneal Cavity: There is a large anterior abdominal wall hernia. There is colon and small bowel wi thin the hernia. No evidence of associated formation. No intraperitoneal free air or free fluid. No e nlarged mesenteric or retroperitoneal lymph nodes. Pelvic Organs: No bladder stones or wall thickening. Noncontrast images of the visualized pelvic orga ns are unremarkable. Vasculature: Unremarkable. Other: None. IMPRESSION: No CT evidence of acute traumatic injury to the abdomen or pelvis. Referring Provider Line: [phone] SITE ID: [id number]
--- NOTE | 2017-07-16 15:02 | XRAY Report ---
EXAM: RIGHT KNEE RADIOGRAPHY EXAM DATE: 07/16/2017 02:35 PM. CLINICAL HISTORY: Fall knee pain. COMPARISON: None. TECHNIQUE: 3 views. FINDINGS: Bones: No fracture or focal bony lesion. Joints: No evidence of dislocation. There is advanced underlying degenerative disease. Soft Tissues: No unexpected soft tissue findings. IMPRESSION: 1. No evidence of fracture or dislocation. 2. 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 [facility] Referring Provider Line: [phone] SITE ID: [id number]
--- NOTE | 2017-07-16 15:03 | XRAY Report ---
EXAM: THORACIC SPINE RADIOGRAPHY EXAM DATE: 07/16/2017 02:35 PM. CLINICAL HISTORY: Fall knee pain. COMPARISON: None. TECHNIQUE: 2 views. FINDINGS: Alignment: Normal. No spondylolisthesis or scoliosis. Bones: No fractures or bone lesions. Disks: Disk heights are maintained. Soft Tissues: The visualized lungs and cardiomediastinal silhouette are normal. IMPRESSION: No evidence of fracture or dislocation. [facility] Referring Provider Line: [phone] SITE ID: [id number]
[2017-07-16 16:50] VITALS: BP 120/73
== END 2017-07-16 16:58 | disposition home or self-care (01) ==
LOC: ED 10:34
DX: S33.5XXA Sprain of ligaments of lumbar spine, initial encounter (principal); S83.91XA Sprain of unspecified site of right knee, initial encounter; S70.01XA Contusion of right hip, initial encounter; S30.1XXA Contusion of abdominal wall, initial encounter; W01.0XXA Fall on same level from slipping, tripping and stumbling without subsequent striking against object, initial encounter; I10 Essential (primary) hypertension; E11.42 Type 2 diabetes mellitus with diabetic polyneuropathy; Z79.4 Long term (current) use of insulin; M19.90 Unspecified osteoarthritis, unspecified site; Z86.718 Personal history of other venous thrombosis and embolism; Z86.711 Personal history of pulmonary embolism; Z79.01 Long term (current) use of anticoagulants
CPT/HCPCS: 36415; 70450; 72070; 73564; 74176; 81003; 84703; 99283; A9270; 81001; 87086

== ENCOUNTER 2017-07-28 10:53 | Outpatient (CLI) | payer MEDICARE, MEDICAID | END 2017-07-28 10:54 | disposition home or self-care (01) | LOC: DI.N 10:53 | PROVIDERS: ATTEND Physician Assistant | DX: Z53.9 Procedure and treatment not carried out, unspecified reason (principal) ==

== ENCOUNTER 2017-07-28 15:57 | Outpatient (CLI) | payer MEDICARE, MEDICAID | END 2017-07-28 15:58 | disposition EMS.NT | LOC: EMS 15:57 | PROVIDERS: ATTEND Surgery | DX: R11.2 Nausea with vomiting, unspecified (principal); W18.39XA Other fall on same level, initial encounter; Y92.031 Bathroom in apartment as the place of occurrence of the external cause ==

== ENCOUNTER 2017-07-30 18:14 | Outpatient (CLI) | payer MEDICARE, MEDICAID | END 2017-07-30 18:15 | disposition critical access hospital (66) | LOC: EMS 18:14 | PROVIDERS: ATTEND Surgery | DX: T50.902A Poisoning by unspecified drugs, medicaments and biological substances, intentional self-harm, initial encounter (principal); R46.4 Slowness and poor responsiveness | CPT/HCPCS: A0425; A0427 ==

== ENCOUNTER 2017-07-30 18:34 | Emergency (ER) | payer MEDICARE, MEDICAID ==
[2017-07-30 19:08] LABS: BASOPHILS % (AUTO) 0.6 %; EOSINOPHILS % (AUTO) 0.7 %; HGB - HEMOGLOBIN 12.9 g/dL (12.0-16.0); LYMPHOCYTES # (AUTO) 2.1 10^3/uL (1.5-3.5); LYMPHOCYTES % (AUTO) 32.5 %; MEAN CORPUSCULAR HEMOGLOBIN 26.8 pg (27.0-31.0); MEAN CORPUSCULAR HGB CONC 32.1 g/dL (32.0-36.0); MEAN CORPUSCULAR VOLUME 83.5 fL (81.0-99.0); MEAN PLATELET VOLUME 7.5 fL (7.9-10.8); MONOCYTES # (AUTO) 0.5 10^3/uL (0.0-1.0); NEUTROPHILS # (AUTO) 3.7 10^3/uL (1.5-6.6); NEUTROPHILS % (AUTO) 58.2 %; PLT - PLATELET COUNT 265 10^3/uL (130-450); RED BLOOD COUNT 4.82 10^6/uL (4.20-5.40); RED CELL DISTRIBUTION WIDTH 14.7 % (12.0-15.0); WHITE BLOOD COUNT 6.3 x10^3/uL (4.8-10.8)
[2017-07-30 19:20] LABS: ALBUMIN 3.9 g/dL (3.2-5.5); ALBUMIN/GLOBULIN RATIO 1.3 (1.0-2.2); ALKALINE PHOSPHATASE 84 IU/L (42-121); ALT ALANINE AMINOTRANSFERASE 14 IU/L (10-60); AST ASPARTATE AMINOTRANSFERASE 17 IU/L (10-42); BILIRUBIN,TOTAL 0.4 mg/dL (0.2-1.0); BUN - BLOOD UREA NITROGEN 8 mg/dL (6-20); CARBON DIOXIDE - CO2 24 mmol/L (21-32); CHLORIDE 100 mmol/L (101-111); CREATININE 0.6 mg/dL (0.4-1.0); GFR - MDRD 110 (>89); GLUCOSE 221 mg/dL (70-100); LIPASE 26 U/L (22-51); SALICYLATE < 6.0 mg/dL; SODIUM 132 mmol/L (135-145); TOTAL PROTEIN 6.9 g/dL (6.7-8.2)
[2017-07-30 19:21] LABS: ACETAMINOPHEN < 10 ug/mL (10-30)
--- NOTE | 2017-07-30 20:09 | ED Physician Documentation ---
PD HPI OVERDOSE - Stated complaint Stated Complaint: MHE,SI,OD - Chief complaint Chief Complaint: MHE - History obtained from History obtained from: Patient, Family (fiance), EMS - History of Present Illness Timing - onset: Other (approx 1600 today) Subtance(s) ingested: Other (states took a handful of trazadone and ativan in an attempt to kill herself today.) Contributing factors: Depresssed, Suicidal Pain level max: 0 Pain level now: 0 Similar symptoms before: Diagnosis (depression) Recently seen: Not recently seen - Additional information Additional information: States tried to call her counselor and the crisis line, but no one answered. States she has caregivers at home. Has multiple suicide attempts in the past. Last attempt 2013 Review of Systems Ten Systems: 10 systems reviewed and negative Constitutional: denies: Fever, Chills Ears: denies: Ear pain Nose: denies: Rhinorrhea / runny nose, Congestion Throat: denies: Sore throat Cardiac: denies: Chest pain / pressure Respiratory: denies: Cough GI: denies: Abdominal Pain, Nausea, Vomiting, Diarrhea : denies: Now EGA Skin: denies: Rash Musculoskeletal: denies: Neck pain, Back pain Neurologic: denies: Headache Psychiatric: reports: Depressed, Suicidal, Hallucinations (auditory) PD PAST MEDICAL HISTORY - Past Medical History Cardiovascular: Hypertension, Deep vein thrombosis, Pulmonary embolism Neuro: Peripheral neuropathy, Seizure disorder Endocrine/Autoimmune: Type 2 diabetes GI: Other : Renal insuffiency Psych: Depression, Anxiety, Bipolar disorder, Schizophrenia, Other Musculoskeletal: Osteoarthritis - Past Surgical History Past Surgical History: Yes General: Cholecystectomy, Other - Present Medications Home Medications: Ambulatory Orders Medication Instructions Recorded Confirmed Furosemide [Lasix] 40 mg PO DAILY 09/28/16 07/30/17 Gabapentin 200 mg PO BID 09/28/16 07/30/17 Lisinopril 2.5 mg PO DAILY 09/28/16 07/30/17 Lorazepam [Ativan] 1 mg PO QID PRN 09/28/16 07/30/17 Losartan Potassium 25 mg PO DAILY 09/28/16 07/30/17 Metformin HCl 1,000 mg PO BID 09/28/16 07/30/17 Metoclopramide [Reglan] 20 mg PO BID 09/28/16 07/30/17 Rivaroxaban [Xarelto] 20 mg PO DAILY PM 09/28/16 07/30/17 Rosuvastatin Calcium [Crestor] 40 mg PO DAILY 09/28/16 07/30/17 Tramadol HCl 50 mg PO QID PRN 09/28/16 07/30/17 lamoTRIgine [LaMICtal] 200 mg PO DAILY PM 09/28/16 07/30/17 raNITIdine [Zantac] 150 mg PO BID 09/28/16 07/30/17 Escitalopram [Lexapro] 40 mg PO DAILY 12/18/16 07/30/17 Prazosin [Minipress] 5 mg PO QPM PRN 02/12/17 07/30/17 traZODone [Desyrel] 400 mg PO HS 02/12/17 07/30/17 Ziprasidone HCl [Geodon] 80 mg PO DAILY 07/30/17 07/30/17 diphenhydrAMINE [Benadryl] 50 mg PO Q8H PRN 07/30/17 07/30/17 - Allergies Allergies/Adverse Reactions: Allergies Allergy/AdvReac Type Severity Reaction Status Date / Time bupropion HCl * Allergy Unknown Verified 07/16/17 10:40 [From Wellbutrin] cephalexin monohydrate * Allergy Rash Verified 07/16/17 10:40 [From Keflex] codeine Allergy Unknown Verified 07/16/17 10:40 fluoxetine HCl * Allergy Anaphylaxis Verified 07/16/17 10:40 [From Prozac] lithium Allergy Unknown Verified 07/16/17 10:40 Penicillins Allergy Rash Verified 07/16/17 10:40 phenytoin sodium * Allergy Rash Verified 07/16/17 10:40 [From Dilantin] phenytoin sodium extended * Allergy Rash Verified 07/16/17 10:40 [From Dilantin] - Social History Does the pt smoke?: No Smoking Status: Never smoker Does the pt drink ETOH?: Yes Does the pt have substance abuse?: No - Immunizations Immunizations are current?: Yes - POLST Patient has POLST: No PD ED PE NORMAL - Vitals Vital signs reviewed: Yes - General General: Alert and oriented X 3, No acute distress, Other (morbidly obese) - HEENT HEENT: PERRL - Neck Neck: Supple, no meningeal sign - Cardiac Cardiac: RRR, Strong equal pulses - Respiratory Respiratory: No respiratory distress, Clear bilaterally - Abdomen Abdomen: Soft, Non tender, Non distended - Derm Derm: Warm and dry - Extremities Extremities: No calf tenderness / cord - Neuro Neuro: Alert and oriented X 3 - Psych Psych: Normal mood, Normal affect Results - Vitals Vitals: Vital Signs - 24 hr 07/30/17 07/30/17 07/30/17 18:35 19:54 20:45 Temperature 36.6 C Heart Rate 94 97 89 Respiratory 19 26 H 17 Rate Blood Pressure 123/83 H 133/84 H 124/83 H O2 Saturation 98 97 99 07/30/17 07/30/17 07/30/17 21:36 22:19 23:24 Temperature Heart Rate 89 93 91 Respiratory 20 22 20 Rate Blood Pressure 141/65 H 128/77 114/70 O2 Saturation 100 98 95 Oxygen O2 Source Room air - EKG (time done) 1845 Rate: Rate (enter#) (89) Rhythm: NSR [place]: Normal Intervals: Normal [place] QRS: Normal Ischemia: Normal ST segments - Labs Labs: Laboratory Tests 07/30/17 07/30/17 07/30/17 19:02 19:02 21:20 WBC 6.3 RBC 4.82 Hgb 12.9 Hct 40.2 MCV 83.5 MCH 26.8 L MCHC 32.1 RDW 14.7 Plt Count 265 MPV 7.5 L Neut # 3.7 Lymph # 2.1 [place] # 0.5 Eos # 0.0 Baso # 0.0 Absolute Nucleated RBC 0.00 Nucleated RBC % 0.0 Sodium 132 L Potassium 3.6 Chloride 100 L Carbon Dioxide 24 Anion Gap 8.0 BUN 8 Creatinine 0.6 Estimated GFR (MDRD) 110 Glucose 221 H Calcium 8.0 L Total Bilirubin 0.4 AST 17 ALT 14 Alkaline Phosphatase 84 Total Protein 6.9 Albumin 3.9 Globulin 3.0 Albumin/Globulin Ratio 1.3 Lipase 26 Urine Color Urine Clarity Urine pH Ur Specific [place] Urine Protein Urine Glucose (UA) Urine Ketones Urine Occult Blood Urine Nitrite Urine Bilirubin Urine Urobilinogen Ur Leukocyte Esterase Urine RBC Urine WBC Ur Squamous Epith Cells Urine Bacteria Ur Microscopic Review Urine Culture Comments Urine HCG, Qual Salicylates < 6.0 Urine Opiates Screen NEGATIVE Ur Oxycodone Screen NEGATIVE Urine Methadone Screen NEGATIVE Ur Propoxyphene Screen NEGATIVE Acetaminophen < 10 L Ur Barbiturates Screen NEGATIVE Ur Tricyclics Screen NEGATIVE Ur Phencyclidine Scrn NEGATIVE Ur Amphetamine Screen NEGATIVE U Methamphetamines Scrn NEGATIVE U Benzodiazepines Scrn POSITIVE H Urine Cocaine Screen NEGATIVE U Cannabinoids Screen NEGATIVE Ethyl Alcohol < 5.0 07/30/17 21:20 WBC RBC Hgb Hct MCV MCH MCHC RDW Plt Count MPV Neut # Lymph # [place] # Eos # Baso # Absolute Nucleated RBC Nucleated RBC % Sodium Potassium Chloride Carbon Dioxide Anion Gap BUN Creatinine Estimated GFR (MDRD) Glucose Calcium Total Bilirubin AST ALT Alkaline Phosphatase Total Protein Albumin Globulin Albumin/Globulin Ratio Lipase Urine Color YELLOW Urine Clarity HAZY Urine pH 6.0 Ur Specific [place] <=1.005 Urine Protein NEGATIVE Urine Glucose (UA) NEGATIVE Urine Ketones NEGATIVE Urine Occult Blood MODERATE H Urine Nitrite NEGATIVE Urine Bilirubin NEGATIVE Urine Urobilinogen 0.2 (NORMAL) Ur Leukocyte Esterase NEGATIVE Urine RBC 6-10 H Urine WBC 4-5 Ur Squamous Epith Cells MANY Squamous H Urine Bacteria Few Ur Microscopic Review INDICATED Urine Culture Comments NOT INDICATED Urine HCG, Qual NEGATIVE Salicylates Urine Opiates Screen Ur Oxycodone Screen Urine Methadone Screen Ur Propoxyphene Screen Acetaminophen Ur Barbiturates Screen Ur Tricyclics Screen Ur Phencyclidine Scrn Ur Amphetamine Screen U Methamphetamines Scrn U Benzodiazepines Scrn Urine Cocaine Screen U Cannabinoids Screen Ethyl Alcohol PD MEDICAL DECISION MAKING - ED course Complexity details: reviewed results, re-evaluated patient, considered differential, d/w patient, d/w family ED course: Patient is a 42-year-old female who has a history of schizophrenia, bipolar, depression who presents with worsening auditory hallucinations and a suicide attempt tonight. States that she still feels worthless and suicidal. Does not want to go to the hospital and to be hospitalized. Is unwilling to contract for safety at this time. [facility] P consulted. Patient medically cleared. Patient took the pills at approximately 4:00 today. Patient signed out to Dr. Bishop awaiting [facility] consult. This document was made in part using voice recognition software. While efforts are made to proofread this document, sound alike and grammatical errors may occur. Departure - Departure Clinical Impression: Suicide attempt Overdose Qualifiers: Encounter type: initial encounter Injury intent: intentional self-harm Qualified Code(s): T50.902A - Poisoning by unspecified drugs, medicaments and biological substances, intentional self-harm, initial encounter Condition: Stable
[2017-07-30 21:38] LABS: MUDS CUTOFF CONCENTRATIONS CUTOFF CONC BELOW:
[2017-07-30 21:46] LABS: BILIRUBIN,URINE NEGATIVE (NEGATIVE); GLUCOSE, URINE (UA) NEGATIVE (NEGATIVE); KETONES,URINE (UA) NEGATIVE (NEGATIVE); LEUKOCYTE ESTERASE, URINE NEGATIVE (NEGATIVE); NITRITE,URINE NEGATIVE (NEGATIVE); OCCULT BLOOD,URINE MODERATE (NEGATIVE); PROTEIN,URINE NEGATIVE (NEGATIVE); UROBILINOGEN,URINE 0.2 (NORMAL) E.U./dL (NORMAL)
[2017-07-30 21:48] LABS: CLARITY,URINE HAZY (CLEAR); HCG UR QUAL NEGATIVE
[2017-07-30] MEDS ORDERED: SODIUM CHLORIDE 0.9% 1,000 ML IV ONE (21:55)
[2017-07-30 22:03] LABS: BACTERIA,URINE Few /HPF (None Seen); SQUAMOUS EPITHELIAL CELL,UR MANY Squamous (<= Few)
[2017-07-30 22:28] LABS: AMPHETAMINE SCREEN,URINE NEGATIVE (NEGATIVE); BENZODIAZEPINES SCREEN, URINE POSITIVE (NEGATIVE); COCAINE SCREEN URINE NEGATIVE (NEGATIVE); METHADONE SCREEN, URINE NEGATIVE (NEGATIVE); METHAMPHETAMINES SCREEN, URINE NEGATIVE (NEGATIVE); OPIATE SCREEN, URINE NEGATIVE (NEGATIVE); OXYCODONE SCREEN, URINE NEGATIVE (NEGATIVE); PROPOXYPHENE SCREEN, URINE NEGATIVE (NEGATIVE); TRICYCLIC ANTIDEPRESSANT,URINE NEGATIVE (NEGATIVE)
--- NOTE | 2017-07-31 05:30 | ED Physician Documentation ---
ED Addendum - Addendum Addendum: 07/31/17 05:28 D [facility] Steve came to evaluate the patient talked with her and her spouse and family. He felt that she was not at continued risk of self-harm and did feel there was an adequate safety support and safety plan in place and she denied any feeling of ongoing suicidality. Steve felt the patient would be safe. The patient and family feel comfortable with this. She will be discharged home now. She has a counseling appointment on Wednesday.
[2017-07-31 06:03] VITALS: BP 115/74
== END 2017-07-31 06:25 | disposition home or self-care (01) ==
LOC: EDUNIT# → ED 18:34
DX: T43.212A Poisoning by selective serotonin and norepinephrine reuptake inhibitors, intentional self-harm, initial encounter (principal); F41.8 Other specified anxiety disorders; F31.9 Bipolar disorder, unspecified; F20.9 Schizophrenia, unspecified; G62.9 Polyneuropathy, unspecified; G40.909 Epilepsy, unspecified, not intractable, without status epilepticus; N28.9 Disorder of kidney and ureter, unspecified; E11.9 Type 2 diabetes mellitus without complications; I10 Essential (primary) hypertension; Z86.711 Personal history of pulmonary embolism; Z86.718 Personal history of other venous thrombosis and embolism; Z79.84 Long term (current) use of oral hypoglycemic drugs; Z79.891 Long term (current) use of opiate analgesic; Z79.899 Other long term (current) drug therapy
CPT/HCPCS: 51701; 80053; 80306; 80307; 81001; 81025; 83690; 85025; 93005; 96360; 96361; 99284; 99285; G0480; 36415; 80320; 80329; 81003; 87086

== ENCOUNTER 2017-08-23 09:06 | Outpatient (CLI) | payer MEDICARE, MEDICAID | END 2017-08-23 09:07 | disposition EMS.NT | LOC: EMS 09:06 | PROVIDERS: ATTEND Surgery | DX: R56.9 Unspecified convulsions (principal) ==

== ENCOUNTER 2017-09-20 10:05 | Outpatient (CLI) | payer MEDICARE, MEDICAID | END 2017-09-20 10:06 | disposition home or self-care (01) | LOC: SC 10:05 | PROVIDERS: ATTEND Internal Medicine Pulmonary Disease | DX: G47.33 Obstructive sleep apnea (adult) (pediatric) (principal) | CPT/HCPCS: 99213; G0463; 99212 ==

== ENCOUNTER 2017-09-28 07:47 | Outpatient (CLI) | payer MEDICARE, MEDICAID ==
--- NOTE | 2017-09-29 12:03 | Nuclear Medicine Report ---
Procedure Date: 09/28/2017 Accession Number: [id number] / [id number] Procedure: NM - Gastric Empty Small Bowel CPT Code: FULL RESULT: EXAM: GASTRIC EMPTYING STUDY EXAM DATE: 09/28/2017 03:00 PM. CLINICAL HISTORY: Nausea, generalized ABDOMINAL PAIN. COMPARISON: None. TECHNIQUE: A standard meal was radiolabeled with 1 mCi Tc-99m sulfur colloid according to protocol. Following the p.o. administration of this meal, the patient underwent multiple static images over the abdomen from the anterior and posterior projections, at approximately 0, 1, 2, 3, and 4 hours following the ingestion of the meal. Region of interest analysis was employed, and percent emptied/percent remaining of the meal was calculated using both the geometric mean and decay corrections. FINDINGS: Calculations demonstrate: TIME (hours) Percent remaining. Normal values for percent remaining. 1 hour: 10.6% (30-90%) 2 hours: 4.3% (0-60%) 3 hours: 3.6% (0-30%) 4 hours: 1.4% (0-10%) IMPRESSION: Rapid gastric emptying. RADIA
== END 2017-09-28 07:48 | disposition home or self-care (01) ==
LOC: DI 07:47
PROVIDERS: ATTEND Internal Medicine
DX: R10.84 Generalized abdominal pain (principal); R11.0 Nausea
CPT/HCPCS: 78265

== ENCOUNTER 2017-11-01 10:56 | Outpatient (CLI) | payer MEDICARE, MEDICAID ==
[2017-11-01 11:35] LABS: BASOPHILS # (AUTO) 0.1 10^3/uL (0.0-0.1); BASOPHILS % (AUTO) 0.8 %; EOSINOPHILS # (AUTO) 0.1 10^3/uL (0.0-0.7); EOSINOPHILS % (AUTO) 0.9 %; HGB - HEMOGLOBIN 12.9 g/dL (12.0-16.0); LYMPHOCYTES % (AUTO) 28.6 %; MEAN CORPUSCULAR HEMOGLOBIN 27.5 pg (27.0-31.0); MEAN CORPUSCULAR HGB CONC 32.8 g/dL (32.0-36.0); MEAN CORPUSCULAR VOLUME 83.6 fL (81.0-99.0); MEAN PLATELET VOLUME 7.6 fL (7.9-10.8); MONOCYTES # (AUTO) 0.5 10^3/uL (0.0-1.0); MONOCYTES % (AUTO) 7.1 %; NEUTROPHILS # (AUTO) 4.5 10^3/uL (1.5-6.6); NEUTROPHILS % (AUTO) 62.6 %; PLT - PLATELET COUNT 255 10^3/uL (130-450); RED BLOOD COUNT 4.68 10^6/uL (4.20-5.40); RED CELL DISTRIBUTION WIDTH 14.7 % (12.0-15.0); WHITE BLOOD COUNT 7.1 x10^3/uL (4.8-10.8)
[2017-11-01 11:40] LABS: ALBUMIN/GLOBULIN RATIO 1.1 (1.0-2.2); BILIRUBIN,TOTAL 0.6 mg/dL (0.2-1.0); CALCIUM 9.1 mg/dL (8.5-10.3); CREATININE 0.8 mg/dL (0.4-1.0); TOTAL PROTEIN 7.5 g/dL (6.7-8.2)
== END 2017-11-01 10:57 | disposition home or self-care (01) ==
LOC: LAB 10:56
PROVIDERS: ATTEND Specialist
DX: N28.9 Disorder of kidney and ureter, unspecified (principal); N20.0 Calculus of kidney
CPT/HCPCS: 36415; 80053; 81003; 85025

== ENCOUNTER 2017-11-01 12:20 | Emergency (ER) | payer MEDICARE, MEDICAID ==
[2017-11-01 15:28] LABS: BASOPHILS # (AUTO) 0.1 10^3/uL (0.0-0.1); BASOPHILS % (AUTO) 1.3 %; EOSINOPHILS # (AUTO) 0.1 10^3/uL (0.0-0.7); EOSINOPHILS % (AUTO) 0.8 %; HGB - HEMOGLOBIN 12.9 g/dL (12.0-16.0); LYMPHOCYTES # (AUTO) 2.5 10^3/uL (1.5-3.5); LYMPHOCYTES % (AUTO) 37.8 %; MEAN CORPUSCULAR HEMOGLOBIN 27.4 pg (27.0-31.0); MEAN CORPUSCULAR HGB CONC 33.4 g/dL (32.0-36.0); MEAN CORPUSCULAR VOLUME 82.1 fL (81.0-99.0); MEAN PLATELET VOLUME 7.4 fL (7.9-10.8); MONOCYTES # (AUTO) 0.4 10^3/uL (0.0-1.0); MONOCYTES % (AUTO) 6.5 %; NEUTROPHILS # (AUTO) 3.6 10^3/uL (1.5-6.6); NEUTROPHILS % (AUTO) 53.6 %; PLT - PLATELET COUNT 241 10^3/uL (130-450); RED BLOOD COUNT 4.71 10^6/uL (4.20-5.40); RED CELL DISTRIBUTION WIDTH 14.6 % (12.0-15.0); WHITE BLOOD COUNT 6.6 x10^3/uL (4.8-10.8)
--- NOTE | 2017-11-01 15:31 | ED Physician Documentation ---
History of Present Illness - Stated complaint Stated Complaint: SIDE PX/UNABLE TO URINATE - Chief complaint Chief Complaint: Abd Pain - Additonal information Additional information: hx from pt 42 f to ED with one week of nely flank pain, subj fever, nausea, some diarrhea and now inability to urinate pt denies preg - states she was seen at [facility] earlier today and had a neg UHCG then sent to hospital for labs which were drawn and an ultrasound scheduled for 415 PM but the pain was getting worse so pt checked into the ER instead Review of Systems Constitutional: reports: Fever Cardiac: denies: Chest pain / pressure Respiratory: denies: Dyspnea GI: reports: Abdominal Pain, Nausea, Diarrhea : reports: Hesitancy Musculoskeletal: reports: Back pain Endocrine: denies: Easy bruising / bleeding Immunocompromised: denies: Immunocompromised PD PAST MEDICAL HISTORY - Past Medical History Past Medical History: Yes Cardiovascular: Hypertension, High cholesterol, Deep vein thrombosis, Pulmonary embolism Endocrine/Autoimmune: Type 2 diabetes GI: Other : Renal insuffiency Psych: Depression, Anxiety, Bipolar disorder, Schizophrenia, Other Musculoskeletal: Osteoarthritis - Past Surgical History Past Surgical History: Yes General: Cholecystectomy, Other - Present Medications Home Medications: Ambulatory Orders Medication Instructions Recorded Confirmed Furosemide [Lasix] 40 mg PO DAILY 09/28/16 10/19/17 Gabapentin 200 mg PO BID 09/28/16 10/19/17 Lisinopril 2.5 mg PO DAILY 09/28/16 10/19/17 Metformin HCl 1,000 mg PO BID 09/28/16 10/19/17 Rivaroxaban [Xarelto] 20 mg PO DAILY PM 09/28/16 10/19/17 Rosuvastatin Calcium [Crestor] 40 mg PO DAILY 09/28/16 10/19/17 lamoTRIgine [LaMICtal] 200 mg PO DAILY 09/28/16 10/19/17 raNITIdine [Zantac] 150 mg PO BID 09/28/16 10/19/17 Escitalopram [Lexapro] 40 mg PO DAILY 12/18/16 10/19/17 Prazosin [Minipress] 5 mg PO QPM PRN 02/12/17 10/19/17 traZODone [Desyrel] 400 mg PO HS PRN 02/12/17 10/19/17 Ziprasidone HCl [Geodon] 80 mg PO BID 07/30/17 10/19/17 Acetaminophen [Tylenol Extra 500 mg PO PRN PRN 10/19/17 10/19/17 Strength] Haloperidol Decanoate [Haldol 100 mg IM BID 10/19/17 10/19/17 Decanoate 100] Multivitamin [Multiple Vitamins] 1 tab PO DAILY 10/19/17 10/19/17 Nystatin PO UD 10/19/17 Lidocaine Patch 5% [Lidoderm Patch] 1 each TOP DAILY PRN #10 patch 11/01/17 - Allergies Allergies/Adverse Reactions: Allergies Allergy/AdvReac Type Severity Reaction Status Date / Time bupropion HCl * Allergy Rash Verified 10/19/17 11:10 [From Wellbutrin] cephalexin monohydrate * Allergy Rash Verified 07/16/17 10:40 [From Keflex] codeine Allergy Rash Verified 10/19/17 10:39 fluoxetine HCl * Allergy Anaphylaxis Verified 07/16/17 10:40 [From Prozac] lithium Allergy Rash Verified 10/19/17 10:39 Penicillins Allergy Rash Verified 07/16/17 10:40 phenytoin sodium * Allergy Rash Verified 07/16/17 10:40 [From Dilantin] phenytoin sodium extended * Allergy Rash Verified 11/01/17 12:28 [From Dilantin] - Social History Does the pt smoke?: No Smoking Status: Never smoker Does the pt drink ETOH?: Yes Does the pt have substance abuse?: No - Immunizations Immunizations are current?: Yes - POLST Patient has POLST: No PD ED PE NORMAL - Vitals Vital signs reviewed: Yes - General General: Alert and oriented X 3 - Neck Neck: Supple, no meningeal sign - Cardiac Cardiac: RRR - Respiratory Respiratory: No respiratory distress, Clear bilaterally - Abdomen Abdomen: Soft, Other (mod lower TTP over a large soft ventral hernia, open sore to umbilicus is packed with 1 inch iodiform) - Back Back: No: No CVA TTP (nely CVA TTP) - Derm Derm: Normal color - Neuro Neuro: Alert and oriented X 3 Results - Vitals Vitals: Vital Signs - 24 hr 11/01/17 11/01/17 11/01/17 12:24 13:38 15:37 Temperature 36.4 C L 36.2 C L Heart Rate 82 88 87 Respiratory 20 14 18 Rate Blood Pressure 137/92 H 144/86 H 99/60 O2 Saturation 97 95 96 11/01/17 11/01/17 18:35 18:49 Temperature Heart Rate 80 78 Respiratory 18 18 Rate Blood Pressure 118/70 122/74 O2 Saturation 95 97 Oxygen O2 Source Room air - Labs Labs: Laboratory Tests 11/01/17 11/01/17 11/01/17 15:10 15:10 15:10 WBC 6.6 RBC 4.71 Hgb 12.9 Hct 38.7 MCV 82.1 MCH 27.4 MCHC 33.4 RDW 14.6 Plt Count 241 MPV 7.4 L Neut # (Auto) 3.6 Lymph # (Auto) 2.5 [place] # (Auto) 0.4 Eos # (Auto) 0.1 Baso # (Auto) 0.1 Absolute Nucleated RBC 0.00 Nucleated RBC % 0.0 Sodium 136 Potassium 3.6 Chloride 99 L Carbon Dioxide 26 Anion Gap 11.0 BUN 9 Creatinine 0.7 Estimated GFR (MDRD) 92 Glucose 85 Calcium 8.9 Total Bilirubin 0.7 AST 20 ALT 18 Alkaline Phosphatase 95 Total Protein 7.1 Albumin 3.9 Globulin 3.2 Albumin/Globulin Ratio 1.2 Lipase 21 L Serum HCG, Qual NEGATIVE Urine Color Urine Clarity Urine pH Ur Specific [place] Urine Protein Urine Glucose (UA) Urine Ketones Urine Occult Blood Urine Nitrite Urine Bilirubin Urine Urobilinogen Ur Leukocyte Esterase Ur Microscopic Review Urine Culture Comments 11/01/17 16:27 WBC RBC Hgb Hct MCV MCH MCHC RDW Plt Count MPV Neut # (Auto) Lymph # (Auto) [place] # (Auto) Eos # (Auto) Baso # (Auto) Absolute Nucleated RBC Nucleated RBC % Sodium Potassium Chloride Carbon Dioxide Anion Gap BUN Creatinine Estimated GFR (MDRD) Glucose Calcium Total Bilirubin AST ALT Alkaline Phosphatase Total Protein Albumin Globulin Albumin/Globulin Ratio Lipase Serum HCG, Qual Urine Color YELLOW Urine Clarity CLEAR Urine pH 6.0 Ur Specific [place] <=1.005 Urine Protein NEGATIVE Urine Glucose (UA) NEGATIVE Urine Ketones NEGATIVE Urine Occult Blood NEGATIVE Urine Nitrite NEGATIVE Urine Bilirubin NEGATIVE Urine Urobilinogen 0.2 (NORMAL) Ur Leukocyte Esterase NEGATIVE Ur Microscopic Review NOT INDICATED Urine Culture Comments NOT INDICATED - Rads (name of study) CT AP Radiology: See rad report (pt girth exceeeds CT but within those limitations: large right paramedian ant abd wall hernia with bowel but no dilitation, wall thickening, no abn solid organs (no renal infarct), questionable stranding L ovary ant margin (not at all where pt hurts), no vascular abn (with contrast)) renal sono Radiology: See rad report (suboptimal 2/2 body habitus, no obstruction, suggestion of heatic steatosis) PD MEDICAL DECISION MAKING - ED course ED course: tried to call [facility] to get lab results but unable to get through so redid labs UA sono CT all no acute pt feeling better will dc - Sepsis Event Vital Signs: Vital Signs - 24 hr 11/01/17 11/01/17 11/01/17 12:24 13:38 15:37 Temperature 36.4 C L 36.2 C L Heart Rate 82 88 87 Respiratory 20 14 18 Rate Blood Pressure 137/92 H 144/86 H 99/60 O2 Saturation 97 95 96 11/01/17 11/01/17 18:35 18:49 Temperature Heart Rate 80 78 Respiratory 18 18 Rate Blood Pressure 118/70 122/74 O2 Saturation 95 97 Oxygen O2 Source Room air Departure - Departure Disposition: 01 Home, Self Care Clinical Impression: Flank pain Condition: Good Instructions: ED Flank Pain Uncertain Cause Follow-Up: Fidelina Barth PA-C [Primary Care Provider] - Prescriptions: Lidocaine Patch 5% [Lidoderm Patch] 1 each TOP DAILY PRN #10 patch PRN Reason: Pain Comments: All your tests came back reassuring Your urine did not show infection or blood to suggest a stone The kidney and liver and pancreas function tests were fine The CT scan and ultrasound did not show any stones, incarcerated or strangulated hernias, bowel blockages/infections/ruptures, aneurysms or tears of your major vessels, or kidney infarcts The radiologist did notice some fatty changes in your liver - this has the potential to progress to cirrhosis so please avoid alcohol and Tylenol and follow up with your PMD. And possibly some inflammation around the left ovary but that is not where you hurt Given the reassuring work up, I think it is safe for you to go home I recommend lidocaine patches for the pain Please follow up with your PMD for a recheck later this week Forms: Activity restrictions
[2017-11-01] MEDS ORDERED: SODIUM CHLORIDE 0.9% 1,000 ML IV ONE (15:35)
[2017-11-01] MEDS ORDERED: ACETAMINOPHEN 1,000 MG/100 ML 100 ML IV STA (15:35)
[2017-11-01 16:00] LABS: ALBUMIN 3.9 g/dL (3.2-5.5); ALBUMIN/GLOBULIN RATIO 1.2 (1.0-2.2); BILIRUBIN,TOTAL 0.7 mg/dL (0.2-1.0); CALCIUM 8.9 mg/dL (8.5-10.3); CREATININE 0.7 mg/dL (0.4-1.0); TOTAL PROTEIN 7.1 g/dL (6.7-8.2)
[2017-11-01 16:32] LABS: BILIRUBIN,URINE NEGATIVE (NEGATIVE); GLUCOSE, URINE (UA) NEGATIVE (NEGATIVE); KETONES,URINE (UA) NEGATIVE (NEGATIVE); LEUKOCYTE ESTERASE, URINE NEGATIVE (NEGATIVE); NITRITE,URINE NEGATIVE (NEGATIVE); OCCULT BLOOD,URINE NEGATIVE (NEGATIVE); PROTEIN,URINE NEGATIVE (NEGATIVE); UROBILINOGEN,URINE 0.2 (NORMAL) E.U./dL (NORMAL)
[2017-11-01 16:33] LABS: CLARITY,URINE CLEAR (CLEAR)
[2017-11-01 16:38] LABS: HCG,QUALITATIVE BLOOD NEGATIVE
--- NOTE | 2017-11-01 17:26 | Ultrasound Report ---
Procedure Date: 11/01/2017 Accession Number: [id number] / [id number] Procedure: US - Retroperitoneal CPT Code: FULL RESULT: EXAM: RENAL ULTRASOUND EXAM DATE: 11/01/2017 05:00 PM. CLINICAL HISTORY: Flank pain. COMPARISON: CT of abdomen and pelvis without contrast 07/16/2017. TECHNIQUE: Real-time scanning was performed with static images obtained. FINDINGS: Sensitivity is reduced due to patient body habitus and resultant poor sonographic penetration. Right Kidney: 12.4 x 5.5 x 4.5 cm. Normal echotexture with no stones, contour-deforming masses, or hydronephrosis. Left Kidney: 12.8 x 5.4 x 5.1 cm. Normal echotexture with no stones, contour-deforming masses, or hydronephrosis. Bladder: Bilateral jets seen. The prevoid bladder volume was 148 cc. The postvoid bladder volume was not obtained. Other: Where visualized hepatic parenchymal echogenicity is increased. IMPRESSION: 1. Suboptimal exam as above; however, no evidence of urinary obstruction. 2. Increased hepatic parenchymal echogenicity suggesting steatosis. RADIA
[2017-11-01] MEDS ORDERED: MORPHINE 2 MG/ML SYRINGE IVP STA (18:41)
[2017-11-01 18:50] VITALS: BP 122/74
[2017-11-01] MEDS ORDERED: IOPAMIDOL-300 100 ML VIAL ONE (18:57)
--- NOTE | 2017-11-01 19:42 | CT Report ---
Procedure Date: 11/01/2017 Accession Number: [id number] / [id number] Procedure: CT - Abdomen/Pelvis W/ CPT Code: FULL RESULT: EXAM: CT ABDOMEN AND PELVIS EXAM DATE: 11/01/2017 07:05 PM. CLINICAL HISTORY: Severe flank pain COMPARISONS: ABDOMEN/PELVIS W/O 07/16/2017. TECHNIQUE: Routine helical CT imaging was performed through the abdomen and pelvis. IV contrast: 100 ML ISOVUE 300. Enteric contrast: No. Reconstructions: Coronal and sagittal. In accordance with CT protocol optimization, one or more of the following dose reduction techniques were utilized for this exam: automated exposure control, adjustment of mA and/or KV based on patient size, or use of iterative reconstructive technique. FINDINGS: This study is somewhat limited as the patient's body extends beyond the imaging field. Lung Bases: Unremarkable. Liver: Normal. No masses. Gallbladder/Bile Ducts: The gallbladder is surgically absent. No significant bile duct dilatation. Spleen: Stable hypodensity within the inferior aspect of the spleen. This could represent a cyst or hemangioma. Pancreas: Normal. Adrenal Glands: Normal. Kidneys: Normal. No masses or hydronephrosis. Peritoneal Cavity/Bowel: There is a large right paramedian anterior abdominal wall hernia into which bowel protrudes. The visualized bowel demonstrates no dilatation or wall thickening. The appendix is definitely seen. No evidence of pericecal inflammation. Pelvic Organs: Possible mild fat stranding at the anterior margin of the left ovary (for example image 67 series 3). Vasculature: No aneurysms or other significant abnormality. Bones: No significant abnormality. Other: None. IMPRESSION: 1. Study is limited by patient body habitus. The patient's abdominal diameter exceeds the field of view. The right anterior abdomen is not fully imaged. 2. There is a large right paramedian anterior abdominal wall hernia into which bowel protrudes. 3. The visualized bowel demonstrates no dilatation or wall thickening. 4. No clearly acute solid abdominal organ abnormalities are seen. 5. Questionable fat stranding at the anterior margin of the left ovary. This is nonspecific but could reflect some element of inflammation. The ovary is normal in size. RADIA
[2017-11-01] MEDS ORDERED: IOPAMIDOL-300 100 ML VIAL IVP ONE (20:35)
== END 2017-11-01 20:20 | disposition home or self-care (01) ==
LOC: ED 12:20
DX: R10.9 Unspecified abdominal pain (principal); K43.9 Ventral hernia without obstruction or gangrene; K76.0 Fatty (change of) liver, not elsewhere classified; N20.0 Calculus of kidney; N28.9 Disorder of kidney and ureter, unspecified; I10 Essential (primary) hypertension; E11.9 Type 2 diabetes mellitus without complications; Z79.84 Long term (current) use of oral hypoglycemic drugs; Z86.711 Personal history of pulmonary embolism; Z86.718 Personal history of other venous thrombosis and embolism; Z79.01 Long term (current) use of anticoagulants
CPT/HCPCS: 36415; 74177; 76770; 80053; 81003; 83690; 84703; 85025; 96361; 96365; 96375; 99283; 99284; J0131; J2270; Q9967; 81001; 81025; 87086

== ENCOUNTER 2017-12-02 14:49 | Outpatient (CLI) | payer MEDICARE, MEDICAID | END 2017-12-02 14:50 | disposition home or self-care (01) | LOC: SC 14:49 | PROVIDERS: ATTEND Internal Medicine Pulmonary Disease | DX: G47.33 Obstructive sleep apnea (adult) (pediatric) (principal) | CPT/HCPCS: 99213; G0463; 99212 ==

== ENCOUNTER 2018-01-10 10:04 | Outpatient (CLI) | payer MEDICARE, MEDICAID | END 2018-01-10 10:05 | disposition home or self-care (01) | LOC: SC 10:04 | PROVIDERS: ATTEND Internal Medicine Pulmonary Disease | DX: G47.33 Obstructive sleep apnea (adult) (pediatric) (principal) | CPT/HCPCS: 99213; G0463; 99212 ==

== ENCOUNTER 2018-02-07 10:34 | Emergency (ER) | payer MEDICARE, MEDICAID ==
[2018-02-07 11:41] LABS: BILIRUBIN,URINE NEGATIVE (NEGATIVE); GLUCOSE, URINE (UA) NEGATIVE (NEGATIVE); KETONES,URINE (UA) NEGATIVE (NEGATIVE); LEUKOCYTE ESTERASE, URINE NEGATIVE (NEGATIVE); NITRITE,URINE NEGATIVE (NEGATIVE); OCCULT BLOOD,URINE NEGATIVE (NEGATIVE); PROTEIN,URINE NEGATIVE (NEGATIVE); UROBILINOGEN,URINE 0.2 (NORMAL) E.U./dL (NORMAL)
[2018-02-07 11:45] LABS: CLARITY,URINE CLEAR (CLEAR); HCG UR QUAL NEGATIVE
[2018-02-07 12:03] LABS: BASOPHILS # (AUTO) 0.1 10^3/uL (0.0-0.1); BASOPHILS % (AUTO) 0.9 %; EOSINOPHILS % (AUTO) 0.5 %; HGB - HEMOGLOBIN 13.2 g/dL (12.0-16.0); LYMPHOCYTES # (AUTO) 2.2 10^3/uL (1.5-3.5); LYMPHOCYTES % (AUTO) 30.5 %; MEAN CORPUSCULAR HEMOGLOBIN 26.9 pg (27.0-31.0); MEAN CORPUSCULAR HGB CONC 33.3 g/dL (32.0-36.0); MEAN CORPUSCULAR VOLUME 80.7 fL (81.0-99.0); MEAN PLATELET VOLUME 7.6 fL (7.9-10.8); MONOCYTES # (AUTO) 0.4 10^3/uL (0.0-1.0); NEUTROPHILS # (AUTO) 4.5 10^3/uL (1.5-6.6); NEUTROPHILS % (AUTO) 62.1 %; PLT - PLATELET COUNT 232 10^3/uL (130-450); RED BLOOD COUNT 4.91 10^6/uL (4.20-5.40); RED CELL DISTRIBUTION WIDTH 15.1 % (12.0-15.0); WHITE BLOOD COUNT 7.2 x10^3/uL (4.8-10.8)
[2018-02-07] MEDS ORDERED: LORazepam 0.5 MG TABLET PO STA (12:07)
[2018-02-07] MEDS ORDERED: BENZTROPINE 2 MG TABLET PO STA (12:07)
--- NOTE | 2018-02-07 12:10 | ED Physician Documentation ---
PD HPI MHE - Stated complaint Stated Complaint: MHE - Chief complaint Chief Complaint: MHE - History obtained from History obtained from: Patient, Family (isidoroe) - History of Present Illness Primary symptom: Suicidal ideation (42-year-old woman with history of psychiatric disorder, had an overdose in July of this year was not hospitalized at the time. Her meds are managed by [facility] and she only receives them on a daily controlled basis. She has depressed and has suicidal ideation without plan. She also has akathisia probably due to Haldol which she is been on for 2 months. She has had that feeling for about 2 weeks.) Review of Systems Ten Systems: 10 systems reviewed and negative Constitutional: reports: Reviewed and negative Throat: reports: Reviewed and negative Respiratory: reports: Reviewed and negative PD PAST MEDICAL HISTORY - Past Medical History Cardiovascular: Hypertension, High cholesterol, Deep vein thrombosis, Pulmonary embolism Endocrine/Autoimmune: Type 2 diabetes GI: Other : Renal insuffiency Psych: Depression, Anxiety, Bipolar disorder, Schizophrenia, Other Musculoskeletal: Osteoarthritis - Past Surgical History Past Surgical History: Yes General: Cholecystectomy, Other - Present Medications Home Medications: Ambulatory Orders Medication Instructions Recorded Confirmed Furosemide [Lasix] 40 mg PO DAILY 09/28/16 10/19/17 RX: Gabapentin 200 mg PO BID 09/28/16 10/19/17 RX: Lisinopril 2.5 mg PO DAILY 09/28/16 10/19/17 RX: Metformin HCl 1,000 mg PO BID 09/28/16 10/19/17 Rivaroxaban [Xarelto] 20 mg PO DAILY PM 09/28/16 10/19/17 Rosuvastatin Calcium [Crestor] 40 mg PO DAILY 09/28/16 10/19/17 lamoTRIgine [LaMICtal] 200 mg PO DAILY 09/28/16 10/19/17 raNITIdine [Zantac] 150 mg PO BID 09/28/16 10/19/17 Escitalopram [Lexapro] 40 mg PO DAILY 12/18/16 10/19/17 RX: Prazosin [Minipress] 5 mg PO QPM PRN 02/12/17 10/19/17 traZODone [Desyrel] 400 mg PO HS PRN 02/12/17 10/19/17 Ziprasidone HCl [Geodon] 80 mg PO BID 07/30/17 10/19/17 Acetaminophen [Tylenol Extra 500 mg PO PRN PRN 10/19/17 10/19/17 Strength] Haloperidol Decanoate [Haldol 20 mg PO BID 10/19/17 10/19/17 Decanoate 100] Multivitamin [Multiple Vitamins] 1 tab PO DAILY 10/19/17 10/19/17 RX: Lidocaine Patch 5% [Lidoderm 1 each TOP DAILY PRN #10 patch 11/01/17 Patch] Insulin Aspart [NovoLOG] 14 unit SUBQ ACHS 02/08/18 02/08/18 Insulin Detemir [Levemir Flextouch] 60 units SUBQ BID 02/08/18 02/08/18 - Allergies Allergies/Adverse Reactions: Allergies Allergy/AdvReac Type Severity Reaction Status Date / Time bupropion HCl * Allergy Rash Verified 02/09/18 03:19 [From Wellbutrin] cephalexin monohydrate * Allergy Rash Verified 02/09/18 03:19 [From Keflex] codeine Allergy Rash Verified 02/09/18 03:19 fluoxetine HCl * Allergy Anaphylaxis Verified 02/09/18 03:19 [From Prozac] lithium Allergy Rash Verified 02/09/18 03:19 Penicillins Allergy Rash Verified 02/09/18 03:19 phenytoin sodium * Allergy Rash Verified 02/09/18 03:19 [From Dilantin] phenytoin sodium extended * Allergy Rash Verified 02/09/18 03:19 [From Dilantin] - Social History Does the pt smoke?: No Smoking Status: Never smoker Does the pt drink ETOH?: Yes Does the pt have substance abuse?: No - Family History Family history: reports: Non contributory - Immunizations Immunizations are current?: Yes - POLST Patient has POLST: No PD ED PE NORMAL - Vitals Vital signs reviewed: Yes - General General: Alert and oriented X 3, Other (Tearful with very linear thinking) - HEENT HEENT: Other (Poor dentition) - Neck Neck: Supple, no meningeal sign, No bony TTP - Cardiac Cardiac: RRR, No murmur - Respiratory Respiratory: No respiratory distress, Clear bilaterally - Abdomen Abdomen: Soft, Non tender - Derm Derm: Normal color, Warm and dry - Extremities Extremities: No deformity, No tenderness to palpate - Neuro Neuro: Alert and oriented X 3, Normal speech Results - Vitals Vitals: Vital Signs - 24 hr 02/08/18 02/08/18 02/08/18 11:05 15:02 22:20 Temperature Heart Rate 70 72 74 Respiratory 20 19 15 Rate Blood Pressure 120/72 119/78 99/56 L O2 Saturation 94 97 96 02/08/18 02/09/18 02/09/18 23:54 03:13 03:26 Temperature 36.4 C L Heart Rate 104 H Respiratory 14 18 18 Rate Blood Pressure 123/74 O2 Saturation 96 02/09/18 05:15 Temperature Heart Rate 96 Respiratory 18 Rate Blood Pressure 122/76 O2 Saturation 96 Oxygen O2 Source Room air - EKG (time done) 1531 Rate: Rate (enter#) (77) Rhythm: NSR [place]: LAD Intervals: Normal MN, Prolonged QT (QTC 514msec) QRS: Normal Ischemia: Normal ST segments Computer interpretation: Agree with computer - Labs Labs: Laboratory Tests 02/07/18 02/07/18 02/07/18 11:32 11:32 11:50 WBC RBC Hgb Hct MCV MCH MCHC RDW Plt Count MPV Neut # (Auto) Lymph # (Auto) [place] # (Auto) Eos # (Auto) Baso # (Auto) Absolute Nucleated RBC Nucleated RBC % Sodium 138 Potassium 4.0 Chloride 99 L Carbon Dioxide 27 Anion Gap 12.0 BUN 13 Creatinine 0.7 Estimated GFR (MDRD) 92 Glucose 238 H POC Whole Bld Glucose Calcium 8.8 Total Bilirubin 0.6 AST 25 ALT 26 Alkaline Phosphatase 109 Total Protein 7.4 Albumin 4.1 Globulin 3.3 Albumin/Globulin Ratio 1.2 Lipase 25 Urine Color YELLOW Urine Clarity CLEAR Urine pH 6.0 Ur Specific [place] 1.010 Urine Protein NEGATIVE Urine Glucose (UA) NEGATIVE Urine Ketones NEGATIVE Urine Occult Blood NEGATIVE Urine Nitrite NEGATIVE Urine Bilirubin NEGATIVE Urine Urobilinogen 0.2 (NORMAL) Ur Leukocyte Esterase NEGATIVE Ur Microscopic Review NOT INDICATED Urine Culture Comments NOT INDICATED Urine HCG, Qual NEGATIVE Salicylates < 6.0 Urine Opiates Screen POSITIVE H Ur Oxycodone Screen NEGATIVE Urine Methadone Screen NEGATIVE Ur Propoxyphene Screen NEGATIVE Acetaminophen < 10 L Ur Barbiturates Screen NEGATIVE Ur Tricyclics Screen NEGATIVE Ur Phencyclidine Scrn NEGATIVE Ur Amphetamine Screen NEGATIVE U Methamphetamines Scrn NEGATIVE U Benzodiazepines Scrn POSITIVE H Urine Cocaine Screen NEGATIVE U Cannabinoids Screen POSITIVE H Ethyl Alcohol < 5.0 02/07/18 02/08/18 11:50 16:25 WBC 7.2 RBC 4.91 Hgb 13.2 Hct 39.6 MCV 80.7 L MCH 26.9 L MCHC 33.3 RDW 15.1 H Plt Count 232 MPV 7.6 L Neut # (Auto) 4.5 Lymph # (Auto) 2.2 [place] # (Auto) 0.4 Eos # (Auto) 0.0 Baso # (Auto) 0.1 Absolute Nucleated RBC 0.00 Nucleated RBC % 0.0 Sodium Potassium Chloride Carbon Dioxide Anion Gap BUN Creatinine Estimated GFR (MDRD) Glucose POC Whole Bld Glucose 251 H Calcium Total Bilirubin AST ALT Alkaline Phosphatase Total Protein Albumin Globulin Albumin/Globulin Ratio Lipase Urine Color Urine Clarity Urine pH Ur Specific [place] Urine Protein Urine Glucose (UA) Urine Ketones Urine Occult Blood Urine Nitrite Urine Bilirubin Urine Urobilinogen Ur Leukocyte Esterase Ur Microscopic Review Urine Culture Comments Urine HCG, Qual Salicylates Urine Opiates Screen Ur Oxycodone Screen Urine Methadone Screen Ur Propoxyphene Screen Acetaminophen Ur Barbiturates Screen Ur Tricyclics Screen Ur Phencyclidine Scrn Ur Amphetamine Screen U Methamphetamines Scrn U Benzodiazepines Scrn Urine Cocaine Screen U Cannabinoids Screen Ethyl Alcohol PD MEDICAL DECISION MAKING - ED course ED course: 42-year-old woman with medical comorbidities including history of DVT and diabetes presents with increasing suicidal ideation and side effects from antipsychotics. Tele-psychiatry consultation done recommending inpatient treatment and social work consulted to help with disposition. Initially treated with Ativan and Cogentin for the akathisia and this was followed by [facility] based on tele-psychiatry recommendations. load out worker became involved and my understanding is they tried [place] and [facility] and they did not have appropriate bed for her. [facility] was interested but declined her based on her weight, their maximum weight is 400 pounds and my understanding is that this patient weighs 404 pounds, also they were worried about her QTC, although I would argue that since that is probably from her psychiatric medications it is a psychiatric issue. As such [employer] to continue to work on this tomorrow. Update 02/08: Pt stable today, NAD, Ambulating in [place]. Mostly in room. PA[facility] [employer]UM[employer] BARREL unable to place today. Departure - Departure Clinical Impression: Suicidal ideation Depression Qualifiers: Depression Type: major depressive disorder Major depression recurrence: recurrent Active/Remission status: currently active Major depression episode severity: severe Psychotic features: without psychotic features Qualified Code(s): F33.2 - Major depressive disorder, recurrent severe without psychotic features Condition: Stable
[2018-02-07 12:19] LABS: ACETAMINOPHEN < 10 ug/mL (10-30); ALBUMIN 4.1 g/dL (3.2-5.5); ALBUMIN/GLOBULIN RATIO 1.2 (1.0-2.2); ALKALINE PHOSPHATASE 109 IU/L (42-121); ALT ALANINE AMINOTRANSFERASE 26 IU/L (10-60); AST ASPARTATE AMINOTRANSFERASE 25 IU/L (10-42); BILIRUBIN,TOTAL 0.6 mg/dL (0.2-1.0); BUN - BLOOD UREA NITROGEN 13 mg/dL (6-20); CALCIUM 8.8 mg/dL (8.5-10.3); CARBON DIOXIDE - CO2 27 mmol/L (21-32); CHLORIDE 99 mmol/L (101-111); CREATININE 0.7 mg/dL (0.4-1.0); GFR - MDRD 92 (>89); GLUCOSE 238 mg/dL (70-100); LIPASE 25 U/L (22-51); SALICYLATE < 6.0 mg/dL; SODIUM 138 mmol/L (135-145); TOTAL PROTEIN 7.4 g/dL (6.7-8.2)
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
[2018-02-07] MEDS ORDERED: clonazePAM 0.5 MG TABLET PO STA (14:08)
[2018-02-07 14:12] LABS: MUDS CUTOFF CONCENTRATIONS CUTOFF CONC BELOW:
[2018-02-07 14:31] LABS: AMPHETAMINE SCREEN,URINE NEGATIVE (NEGATIVE); BENZODIAZEPINES SCREEN, URINE POSITIVE (NEGATIVE); COCAINE SCREEN URINE NEGATIVE (NEGATIVE); METHAMPHETAMINES SCREEN, URINE NEGATIVE (NEGATIVE); OPIATE SCREEN, URINE POSITIVE (NEGATIVE)
[2018-02-07 14:32] LABS: METHADONE SCREEN, URINE NEGATIVE (NEGATIVE); OXYCODONE SCREEN, URINE NEGATIVE (NEGATIVE); PROPOXYPHENE SCREEN, URINE NEGATIVE (NEGATIVE); TRICYCLIC ANTIDEPRESSANT,URINE NEGATIVE (NEGATIVE)
[2018-02-08] MEDS ORDERED: ACETAMINOPHEN 325 MG TABLET PO STA ×2 (01:13→04:28)
[2018-02-08] MEDS ORDERED: BENZTROPINE 2 MG TABLET PO STA (09:12)
[2018-02-08] MEDS ORDERED: clonazePAM 0.5 MG TABLET PO STA ×2 (09:12→21:05)
[2018-02-08] MEDS ORDERED: metFORMIN 500 MG TABLET PO STA (16:44)
[2018-02-08] MEDS ORDERED: FUROSEMIDE 20 MG TABLET PO STA (16:44)
[2018-02-08] MEDS ORDERED: GABAPENTIN 100 MG CAPSULE PO STA (16:44)
[2018-02-08] MEDS: RIVAROXABAN 10 MG TABLET PO SCH (17:59)
[2018-02-09] MEDS ORDERED: ACETAMINOPHEN 325 MG TABLET PO STA ×2 (04:32→23:46)
[2018-02-09] MEDS: lamoTRIgine 100 MG TABLET PO SCH (11:53)
[2018-02-09] MEDS: RIVAROXABAN 10 MG TABLET PO SCH (11:53)
[2018-02-09] MEDS ORDERED: BENZTROPINE 2 MG TABLET PO STA (17:07)
[2018-02-09] MEDS ORDERED: clonazePAM 0.5 MG TABLET PO STA (17:07)
--- NOTE | 2018-02-09 17:10 | ED Physician Documentation ---
ED Addendum - Addendum Addendum: 02/09/18 17:09 The patient has been up and around ambulating with cane by herself up and down the hallways a few times now. She does complain of some anxiety that has been helped by the clonazepam and requests a dose. She has been being given her home medications so is up-to-date on her usual meds otherwise. social work did talk with the patient again today and tried getting her for admission to facilities but apparently no beds available today. They will resume search again tomorrow.
[2018-02-10] MEDS ORDERED: LORazepam 0.5 MG TABLET PO STA (02:15)
[2018-02-10] MEDS: lamoTRIgine 100 MG TABLET PO SCH (09:51)
[2018-02-10] MEDS ORDERED: clonazePAM 0.5 MG TABLET PO STA (10:03)
[2018-02-10] MEDS ORDERED: OLANZapine ODT 5 MG TABLET TL STA (15:09)
[2018-02-10] MEDS ORDERED: ACETAMINOPHEN 325 MG TABLET PO STA (15:10)
[2018-02-10] MEDS: RIVAROXABAN 10 MG TABLET PO SCH (17:16)
[2018-02-10] MEDS ORDERED: MIN OIL/DIMETHICON/COCONUT OIL 92 GM TUBE TOP ONE (20:33)
[2018-02-11] MEDS ORDERED: ACETAMINOPHEN 325 MG TABLET PO STA (10:16)
[2018-02-11] MEDS: lamoTRIgine 100 MG TABLET PO SCH (10:23)
[2018-02-11] MEDS: RIVAROXABAN 10 MG TABLET PO SCH (22:23)
[2018-02-12 11:33] LABS: BILIRUBIN,URINE NEGATIVE (NEGATIVE); GLUCOSE, URINE (UA) NEGATIVE (NEGATIVE); KETONES,URINE (UA) NEGATIVE (NEGATIVE); LEUKOCYTE ESTERASE, URINE NEGATIVE (NEGATIVE); NITRITE,URINE NEGATIVE (NEGATIVE); OCCULT BLOOD,URINE NEGATIVE (NEGATIVE); PH,URINE 6.5 PH (5.0-7.5); PROTEIN,URINE NEGATIVE (NEGATIVE); UROBILINOGEN,URINE 0.2 (NORMAL) E.U./dL (NORMAL)
[2018-02-12 11:40] LABS: CLARITY,URINE CLEAR (CLEAR)
[2018-02-12] MEDS ORDERED: LORazepam 0.5 MG TABLET PO STA ×2 (12:26→22:52)
[2018-02-12] MEDS ORDERED: OLANZapine ODT 5 MG TABLET TL ONE (14:02)
--- NOTE | 2018-02-12 16:53 | ED Physician Documentation ---
ED Addendum - Addendum Addendum: 02/12/18 16:52 The patient has been stable throughout the day shift. The patient was given Ativan and Zyprexa per her request. The patient is still pending placement into a behavioral health center. The patient is still voluntary. There is been no acute change in the patient's condition.
[2018-02-12] MEDS: RIVAROXABAN 10 MG TABLET PO SCH (21:10)
[2018-02-13] MEDS ORDERED: LORazepam 0.5 MG TABLET PO STA ×2 (01:30→18:53)
[2018-02-13] MEDS: OLANZapine ODT 5 MG TABLET TL SCH (10:27)
[2018-02-13] MEDS: LORazepam 0.5 MG TABLET PO PRN (15:05)
--- NOTE | 2018-02-13 17:01 | ED Physician Documentation ---
ED Addendum - Addendum Addendum: 02/13/18 The patient still pending placement into a behavioral health center. Unfortunately, today there was no social work to help facilitate placement of the patient. The patient is still voluntary. The patient has requested doses of Zyprexa and Ativan today to help control her symptoms. Otherwise the patient has had no change in her status. The patient has still cooperative and voluntary. The patient was stable throughout the duration of my shift today. The patient's care will be turned over to the oncoming emergency physician.
[2018-02-13] MEDS ORDERED: OLANZapine ODT 5 MG TABLET TL STA (18:53)
[2018-02-14] MEDS: RIVAROXABAN 10 MG TABLET PO SCH ×2 (01:30→17:23)
[2018-02-14] MEDS: LORazepam 0.5 MG TABLET PO PRN ×3 (07:23→20:23)
[2018-02-14] MEDS: lamoTRIgine 100 MG TABLET PO SCH (08:50)
[2018-02-14] MEDS ORDERED: ESCITALOPRAM 10 MG TABLET PO SCH (09:00)
[2018-02-14] MEDS ORDERED: LISINOPRIL 5 MG TABLET PO SCH (09:00)
[2018-02-14] MEDS ORDERED: GABAPENTIN 100 MG CAPSULE PO SCH (09:00)
[2018-02-14] MEDS ORDERED: FUROSEMIDE 20 MG TABLET PO SCH (09:00)
[2018-02-14] MEDS ORDERED: metFORMIN 500 MG TABLET PO SCH ×2 (09:30→17:00)
[2018-02-14] MEDS ORDERED: GABAPENTIN 100 MG CAPSULE PO STA (09:52)
[2018-02-14] MEDS ORDERED: ZIPRASIDONE 20 MG CAPSULE PO SCH (10:00)
[2018-02-14] MEDS: OLANZapine ODT 5 MG TABLET TL SCH (11:16)
--- NOTE | 2018-02-14 15:20 | ED Physician Documentation ---
ED Addendum - Addendum Addendum: 02/14/18 The patient has been stable throughout the morning and afternoon. Social work came and evaluated the patient again and is fortunately been able to secure placement at [facility] in [facility] for ongoing management of her mental health related issues. Presently the patient appears stable and appropriate for transfer. The patient is voluntary and agreeable to this plan. A physician to physician consultation was performed and they agree with the plan for excepting the patient in transfer.
[2018-02-14] MEDS ORDERED: LORazepam 0.5 MG TABLET PO STA (20:11)
[2018-02-14 20:29] VITALS: BP 134/83
== END 2018-02-14 20:28 ==
LOC: ED 10:34
DX: R45.851 Suicidal ideations (principal); F33.2 Major depressive disorder, recurrent severe without psychotic features; F25.9 Schizoaffective disorder, unspecified; I45.81 Long QT syndrome; I10 Essential (primary) hypertension; E78.00 Pure hypercholesterolemia, unspecified; Z86.718 Personal history of other venous thrombosis and embolism; E11.9 Type 2 diabetes mellitus without complications; Z79.84 Long term (current) use of oral hypoglycemic drugs
CPT/HCPCS: 36415; 51701; 80053; 81003; 81025; 83690; 85025; 93005; 99284; 99285; A6250; A9270; G0426; Q3014; 80306; 80307; 80320; 80329; 81001; 87086

== ENCOUNTER 2018-02-28 23:52 | Emergency (ER) | payer MEDICARE, MEDICAID ==
[2018-03-01] MEDS: MORPHINE 2 MG/ML CARPUJECT IVP STA (00:48)
[2018-03-01 00:59] LABS: BASOPHILS # (AUTO) 0.1 10^3/uL (0.0-0.1); EOSINOPHILS # (AUTO) 0.1 10^3/uL (0.0-0.7); EOSINOPHILS % (AUTO) 0.7 %; HGB - HEMOGLOBIN 13.3 g/dL (12.0-16.0); LYMPHOCYTES # (AUTO) 2.2 10^3/uL (1.5-3.5); LYMPHOCYTES % (AUTO) 27.1 %; MEAN CORPUSCULAR HEMOGLOBIN 27.1 pg (27.0-31.0); MEAN CORPUSCULAR HGB CONC 33.6 g/dL (32.0-36.0); MEAN CORPUSCULAR VOLUME 80.8 fL (81.0-99.0); MEAN PLATELET VOLUME 7.5 fL (7.9-10.8); MONOCYTES # (AUTO) 0.6 10^3/uL (0.0-1.0); MONOCYTES % (AUTO) 7.1 %; NEUTROPHILS # (AUTO) 5.3 10^3/uL (1.5-6.6); NEUTROPHILS % (AUTO) 64.1 %; PLT - PLATELET COUNT 281 10^3/uL (130-450); RED BLOOD COUNT 4.89 10^6/uL (4.20-5.40); RED CELL DISTRIBUTION WIDTH 15.6 % (12.0-15.0); WHITE BLOOD COUNT 8.3 x10^3/uL (4.8-10.8)
[2018-03-01 01:14] LABS: ALBUMIN 3.9 g/dL (3.2-5.5); ALBUMIN/GLOBULIN RATIO 1.1 (1.0-2.2); BILIRUBIN,TOTAL 0.5 mg/dL (0.2-1.0); CALCIUM 8.7 mg/dL (8.5-10.3); CREATININE 0.8 mg/dL (0.4-1.0); TOTAL PROTEIN 7.5 g/dL (6.7-8.2)
[2018-03-01 01:23] LABS: BILIRUBIN,URINE NEGATIVE (NEGATIVE); GLUCOSE, URINE (UA) >=1000 mg/dL (NEGATIVE); KETONES,URINE (UA) NEGATIVE (NEGATIVE); LEUKOCYTE ESTERASE, URINE NEGATIVE (NEGATIVE); NITRITE,URINE NEGATIVE (NEGATIVE); OCCULT BLOOD,URINE LARGE (NEGATIVE); PROTEIN,URINE NEGATIVE (NEGATIVE); UROBILINOGEN,URINE 0.2 (NORMAL) E.U./dL (NORMAL)
[2018-03-01 01:28] LABS: BACTERIA,URINE None Seen /HPF (None Seen); CLARITY,URINE CLEAR (CLEAR); RBC,URINE TNTC /HPF (0-5); SQUAMOUS EPITHELIAL CELL,UR RARE Squamous (<= Few)
[2018-03-01 01:29] LABS: HCG UR QUAL NEGATIVE
--- NOTE | 2018-03-01 01:55 | ED Physician Documentation ---
PD HPI ABD PAIN - Stated complaint Stated Complaint: ABD PAIN - Chief complaint Chief Complaint: Abd Pain - History obtained from History obtained from: Patient, Family - History of Present Illness Timing - onset: How many hours ago (6) Timing - duration: Hours (6) Timing - details: Abrupt onset Pain level max: 8 Pain level now: 8 Quality: Aching, Pain Location: Other (r pelvic) Radiation: Other (non-radiating), Right shoulder Worsened by: Palpation Associated symptoms: No: Fever, Nausea, Vomiting, Hematemesis, Diarrhea, Constipation, Vaginal bleeding, Vaginal dc Similar symptoms before: Diagnosis (ovarian cyst) Recently seen: Not recently seen Review of Systems Constitutional: denies: Fever, Chills Ears: denies: Ear pain Nose: denies: Rhinorrhea / runny nose, Congestion Throat: denies: Sore throat Respiratory: denies: Cough GI: denies: Nausea, Vomiting, Diarrhea : denies: Dysuria Skin: denies: Rash Musculoskeletal: denies: Neck pain, Back pain Neurologic: denies: Headache PD PAST MEDICAL HISTORY - Past Medical History Past Medical History: Yes Cardiovascular: Hypertension, High cholesterol, Deep vein thrombosis, Pulmonary embolism Respiratory: Sleep apnea Neuro: None Endocrine/Autoimmune: Type 2 diabetes GI: Other : Renal insuffiency HEENT: None Psych: Depression, Anxiety, Bipolar disorder, Schizophrenia, Other Musculoskeletal: Osteoarthritis Derm: None - Past Surgical History Past Surgical History: Yes General: Cholecystectomy, Other - Present Medications Home Medications: Ambulatory Orders Medication Instructions Recorded Confirmed Furosemide [Lasix] 40 mg PO DAILY 09/28/16 02/11/18 Gabapentin 200 mg PO BID 09/28/16 02/11/18 Lisinopril 2.5 mg PO DAILY 09/28/16 02/11/18 Metformin HCl 1,000 mg PO BID 09/28/16 02/11/18 Rivaroxaban [Xarelto] 20 mg PO DAILY PM 09/28/16 02/11/18 Rosuvastatin Calcium [Crestor] 40 mg PO DAILY 09/28/16 02/11/18 lamoTRIgine [LaMICtal] 200 mg PO DAILY 09/28/16 02/11/18 raNITIdine [Zantac] 150 mg PO BID 09/28/16 02/11/18 Escitalopram [Lexapro] 40 mg PO DAILY 12/18/16 02/11/18 Prazosin [Minipress] 5 mg PO QPM PRN 02/12/17 02/11/18 Ziprasidone HCl [Geodon] 80 mg PO BID 07/30/17 02/11/18 Acetaminophen [Tylenol Extra 500 mg PO PRN PRN 10/19/17 02/11/18 Strength] Multivitamin [Multiple Vitamins] 1 tab PO DAILY 10/19/17 02/11/18 Insulin Aspart [NovoLOG] 14 unit SUBQ ACHS 02/08/18 02/08/18 Insulin Detemir [Levemir Flextouch] 60 units SUBQ BID 02/08/18 02/08/18 Hydrocodone/Acetaminophen 1 - 2 each PO Q6H PRN #10 tablet 03/01/18 [Hydrocodon-Acetaminophen 5-325] - Allergies Allergies/Adverse Reactions: Allergies Allergy/AdvReac Type Severity Reaction Status Date / Time bupropion HCl * Allergy Rash Verified 03/01/18 00:19 [From Wellbutrin] cephalexin monohydrate * Allergy Rash Verified 03/01/18 00:19 [From Keflex] codeine Allergy Rash Verified 03/01/18 00:19 fluoxetine HCl * Allergy Anaphylaxis Verified 03/01/18 00:19 [From Prozac] lithium Allergy Rash Verified 03/01/18 00:19 Penicillins Allergy Rash Verified 03/01/18 00:19 phenytoin sodium * Allergy Rash Verified 03/01/18 00:19 [From Dilantin] phenytoin sodium extended * Allergy Rash Verified 03/01/18 00:19 [From Dilantin] - Social History Does the pt smoke?: No Smoking Status: Never smoker Does the pt drink ETOH?: Yes Does the pt have substance abuse?: No - Immunizations Immunizations are current?: Yes - POLST Patient has POLST: No PD ED PE NORMAL - Vitals Vital signs reviewed: Yes - General General: Alert and oriented X 3, No acute distress, Other (morbidly obese) - HEENT HEENT: Moist mucous membranes - Neck Neck: Supple, no meningeal sign - Cardiac Cardiac: RRR, Strong equal pulses - Respiratory Respiratory: No respiratory distress, Clear bilaterally - Abdomen Abdomen: Soft, Non tender, Non distended - Back Back: No CVA TTP, No spinal TTP - Derm Derm: Warm and dry - Neuro Neuro: Alert and oriented X 3 Results - Vitals Vitals: Vital Signs - 24 hr 03/01/18 03/01/18 03/01/18 00:17 01:45 02:31 Temperature 36.5 C Heart Rate 91 88 87 Respiratory 22 16 17 Rate Blood Pressure 125/71 103/66 102/64 O2 Saturation 97 95 95 Oxygen O2 Source Room air - Labs Labs: Laboratory Tests 03/01/18 03/01/18 03/01/18 00:45 00:45 01:13 WBC 8.3 RBC 4.89 Hgb 13.3 Hct 39.5 MCV 80.8 L MCH 27.1 MCHC 33.6 RDW 15.6 H Plt Count 281 MPV 7.5 L Neut # (Auto) 5.3 Lymph # (Auto) 2.2 Clinch # (Auto) 0.6 Eos # (Auto) 0.1 Baso # (Auto) 0.1 Absolute Nucleated RBC 0.00 Nucleated RBC % 0.0 Sodium 138 Potassium 3.6 Chloride 100 L Carbon Dioxide 26 Anion Gap 12.0 BUN 20 Creatinine 0.8 Estimated GFR (MDRD) 79 L Glucose 169 H Calcium 8.7 Total Bilirubin 0.5 AST 19 ALT 20 Alkaline Phosphatase 115 Total Protein 7.5 Albumin 3.9 Globulin 3.6 Albumin/Globulin Ratio 1.1 Lipase 28 Urine Color RED/BLOODY Urine Clarity CLEAR Urine pH 6.0 Ur Specific [place] 1.010 Urine Protein NEGATIVE Urine Glucose (UA) >=1000 H Urine Ketones NEGATIVE Urine Occult Blood LARGE H Urine Nitrite NEGATIVE Urine Bilirubin NEGATIVE Urine Urobilinogen 0.2 (NORMAL) Ur Leukocyte Esterase NEGATIVE Urine RBC TNTC H Urine WBC 0-3 Ur Squamous Epith Cells RARE Squamous Urine Bacteria None Seen Ur Microscopic Review INDICATED Urine Culture Comments NOT INDICATED Urine HCG, Qual 03/01/18 01:13 WBC RBC Hgb Hct MCV MCH MCHC RDW Plt Count MPV Neut # (Auto) Lymph # (Auto) Clinch # (Auto) Eos # (Auto) Baso # (Auto) Absolute Nucleated RBC Nucleated RBC % Sodium Potassium Chloride Carbon Dioxide Anion Gap BUN Creatinine Estimated GFR (MDRD) Glucose Calcium Total Bilirubin AST ALT Alkaline Phosphatase Total Protein Albumin Globulin Albumin/Globulin Ratio Lipase Urine Color Urine Clarity Urine pH Ur Specific [place] 1.010 Urine Protein Urine Glucose (UA) Urine Ketones Urine Occult Blood Urine Nitrite Urine Bilirubin Urine Urobilinogen Ur Leukocyte Esterase Urine RBC Urine WBC Ur Squamous Epith Cells Urine Bacteria Ur Microscopic Review Urine Culture Comments Urine HCG, Qual NEGATIVE - Rads (name of study) Pelvic ultrasound Radiology: Prelim report reviewed, EMP read contemporaneously, See rad report (Normal) PD MEDICAL DECISION MAKING - ED course Complexity details: reviewed results, re-evaluated patient, considered differential, d/w patient, d/w family ED course: Patient is a 42-year-old female with right lower pelvic pain. No tenderness at McBurney's point. No evidence of appendicitis clinically. Normal pelvic ultrasound. Will place on pain medication follow-up closely with her doctor. She is well-appearing, nontoxic. Afebrile. Patient and family counseled regarding signs and symptoms for which I believe and urgent re-evaluation would be necessary. Patient with good understanding of and agreement to plan and is comfortable going home at this time This document was made in part using voice recognition software. While efforts are made to proofread this document, sound alike and grammatical errors may occur. Departure - Departure Disposition: 01 Home, Self Care Clinical Impression: Abdominal pain Qualifiers: Abdominal location: right lower quadrant Qualified Code(s): R10.31 - Right lower quadrant pain Condition: Good Instructions: ED Abdominal Pain Unkn Cause Follow-Up: Andrzej Royal PA-C [Primary Care Provider] - Within 3 Days Prescriptions: Hydrocodone/Acetaminophen [Hydrocodon-Acetaminophen 5-325] 1 - 2 each PO Q6H PRN #10 tablet PRN Reason: pain Comments: Return if you worsen including worsening pain. The cause of your symptoms is unclear today. Your ultrasound appears normal. Follow-up with your doctor for further evaluation and care. Do not drink alcohol or drive while on narcotic pain medicine. Note that many narcotic pain relievers also contain tylenol/acetaminophen. Please ensure that your total dose of acetaminophen from all sources does not exceed 3 grams (3000mg) per day. You may constipated on this medication, take a stool softener such as "Colace" twice a day while you are on it. Also recommend a kmcj-fdr-lkyldep laxative such as senna or MiraLAX any day that you do not have a bowel movement. If you received narcotic pain medication in the emergency department, do not drive or operate machinery for the next 24 hours. Discharge Date/Time: 03/01/18 02:33
--- NOTE | 2018-03-01 02:02 | Ultrasound Report ---
Reason: pelvic pain, R Procedure Date: 03/01/2018 Accession Number: [id number] / [id number] Procedure: US - Pelvic w/Transvag+Doppler Comp CPT Code: FULL RESULT: EXAM: PELVIC ULTRASOUND EXAM DATE: 03/01/2018 01:35 AM. CLINICAL HISTORY: Pelvic pain, R. COMPARISON: None. TECHNIQUE: Realtime transabdominal pelvic scan performed to identify the uterus and adnexa and as an overview of other pelvic structures, followed by transvaginal scan to provide greater detail of the uterus and adnexa, with static image documentation. FINDINGS: Uterus: 7.5 x 3.4 the other dimension is difficult to ascertain. cm, volume none calculated. Limited study cc. Anteverted position. Normal overall size and echotexture. Masses: None. Endometrium: 4 mm. Normal. Right Ovary: 2.6 x 1.9 x 2.7 cm, volume 7.1 cc. Normal echotexture and blood flow. Left Ovary: 1.8 x 2.2 x 1.7 cm, volume 3.4 cc. Normal echotexture and blood flow. Free Fluid: None. Other: None. IMPRESSION: Unremarkable limited pelvic ultrasound study. RADIA
[2018-03-01] MEDS: HYDROcod/ACETAM 5/325 MG TABLET PO STA (02:26)
[2018-03-01 02:33] VITALS: BP 102/64
== END 2018-03-01 02:33 | disposition home or self-care (01) ==
LOC: ED 23:52
DX: R10.31 Right lower quadrant pain (principal); I10 Essential (primary) hypertension; E78.00 Pure hypercholesterolemia, unspecified; E11.9 Type 2 diabetes mellitus without complications; Z79.4 Long term (current) use of insulin; Z86.718 Personal history of other venous thrombosis and embolism; Z86.711 Personal history of pulmonary embolism
CPT/HCPCS: 36415; 76830; 76856; 80053; 81001; 81003; 81025; 83690; 85025; 87086; 93975; 96374; 99283; 99284

== ENCOUNTER 2018-05-03 14:58 | Outpatient (CLI) | payer MEDICARE, MEDICAID | END 2018-05-03 23:59 | disposition home or self-care (01) | LOC: RT.N 14:58 | PROVIDERS: ATTEND Physician Assistant Medical | DX: R05 Cough (principal); Z79.899 Other long term (current) drug therapy | CPT/HCPCS: 93005 ==

== ENCOUNTER 2018-07-13 13:54 | Outpatient (CLI) | payer MEDICARE, MEDICAID ==
--- NOTE | 2018-07-14 05:51 | XRAY Report ---
Reason: hip pain Procedure Date: 07/13/2018 Accession Number: [id number] / [id number] Procedure: XRN - Hips 3-4V BILAT CPT Code: FULL RESULT: EXAM: BILATERAL HIP RADIOGRAPHY EXAM DATE: 07/13/2018 02:24 PM. CLINICAL HISTORY: Hip pain. COMPARISON: None. TECHNIQUE: 3 views. FINDINGS: Bones: Normal. No fractures or bone lesion. Joints: Normal. No dislocation. The hip joint space is preserved. Soft Tissues: Normal. No soft tissue swelling. Herniorrhaphy marker superimposed over the midline. IMPRESSION: Normal hip radiography. RADIA
== END 2018-07-13 13:55 | disposition home or self-care (01) ==
LOC: DI.N 13:54
PROVIDERS: ATTEND Physician Assistant Medical
DX: M25.559 Pain in unspecified hip (principal); E66.9 Obesity, unspecified
CPT/HCPCS: 73522

== ENCOUNTER 2018-10-05 08:00 | Outpatient (CLI) | payer MEDICARE, MEDICAID ==
[2018-10-05 18:49] LABS: CANDIDA GROUP DNA NEGATIVE (NEGATIVE); CANDIDA KRUSEI DNA NEGATIVE (NEGATIVE); TRICHOMONAS VAGINALIS DNA NEGATIVE (NEGATIVE)
[2018-10-05 20:06] LABS: TRICHOMONAS VAGINALIS DNA NEGATIVE (NEGATIVE)
== END 2018-10-05 23:59 ==
LOC: LAB.R 08:00
PROVIDERS: ATTEND Obstetrics & Gynecology
DX: O92.6 Galactorrhea (principal); Z11.3 Encounter for screening for infections with a predominantly sexual mode of transmission
CPT/HCPCS: 87491; 87591; 87661; 87801

== ENCOUNTER 2018-10-12 08:00 | Outpatient (CLI) | payer MEDICARE, MEDICAID ==
[2018-10-12 19:34] LABS: HB2 TOTAL 14.2 g/dL; HEMOGLOBIN A1C 1.12 g/dL; HEMOGLOBIN A1C % 9.4 % (4.6-6.2)
[2018-10-12 20:04] LABS: % IRON SATURATION 6 % (20-50); ALBUMIN 3.8 g/dL (3.2-5.5); ALBUMIN/GLOBULIN RATIO 1.2 (1.0-2.2); ALKALINE PHOSPHATASE 94 IU/L (42-121); ALT ALANINE AMINOTRANSFERASE 15 IU/L (10-60); AST ASPARTATE AMINOTRANSFERASE 15 IU/L (10-42); BILIRUBIN,TOTAL 0.5 mg/dL (0.2-1.0); BUN - BLOOD UREA NITROGEN 14 mg/dL (6-20); CARBON DIOXIDE - CO2 21 mmol/L (21-32); CHLORIDE 107 mmol/L (101-111); CHOL/HDL RATIO 2.8 (<4.4); CHOLESTEROL 131 mg/dL; CREATININE 0.6 mg/dL (0.4-1.0); GFR - MDRD 110 (>89); GLUCOSE 203 mg/dL (70-100); HDL CHOLESTEROL 47 mg/dL; IRON 25 ug/dL (28-170); LDL CHOLESTEROL,CALCULATED 43 mg/dL; LDL/HDL RATIO 0.9 (<4.4); SODIUM 140 mmol/L (135-145); TOTAL IRON BINDING CAPACITY 392 ug/dL (250-450); TOTAL PROTEIN 7.1 g/dL (6.7-8.2); TRANSFERRIN 280 mg/dL (192-382); VLDL CHOLESTEROL 41 mg/dL
[2018-10-12 20:05] LABS: THYROID STIMULATING HORMONE 1.66 uIU/mL (0.34-5.60)
[2018-10-12 20:07] LABS: FREE T4 (FREE THYROXINE) 1.43 ng/dL (0.58-1.64)
[2018-10-12 20:08] LABS: FERRITIN 6.5 ng/mL (11.0-306.8)
[2018-10-12 20:11] LABS: PROLACTIN 7.93 ng/mL
[2018-10-12 20:32] LABS: FOLLICLE STIMULATING HORMONE 5.2 mIU/mL
== END 2018-10-12 23:59 | disposition home or self-care (01) ==
LOC: LAB.N 08:00
PROVIDERS: ATTEND Obstetrics & Gynecology
DX: Z00.00 Encounter for general adult medical examination without abnormal findings (principal); O92.6 Galactorrhea; E11.40 Type 2 diabetes mellitus with diabetic neuropathy, unspecified; Z11.3 Encounter for screening for infections with a predominantly sexual mode of transmission; N91.1 Secondary amenorrhea
CPT/HCPCS: 36415; 80053; 80061; 80074; 81599; 82670; 82728; 83001; 83036; 83540; 83721; 84146; 84439; 84443; 84466; 86592; 86704; 86706; 86708; 86803; 87340

== ENCOUNTER 2018-11-21 08:55 | Outpatient (CLI) | payer MEDICARE, MEDICAID ==
--- NOTE | 2018-11-21 12:52 | Mammography Report ---
Reason: GALACTORRHEA Procedure Date: 11/21/2018 Accession Number: [id number] / [id number] Procedure: BOY - Diagnostic Dig Bilat CPT Code: FULL RESULT: EXAM: Diagnostic Dig Bilat DATE: 11/21/2018 9:50 AM CLINICAL HISTORY: Galactorrhea. Diagnostic examination. History of nulliparity. New baseline mammogram. TECHNIQUE: (B) - Bilateral CC and MLO views were obtained. Right laterally exaggerated CC views obtained. COMPARISON: None PARENCHYMAL PATTERN: (A) - The breast(s) demonstrate(s) scattered fibroglandular densities. FINDINGS: There are no suspicious masses, calcifications, or areas of distortion. IMPRESSION: Negative examination. BI-RADS category 1. RECOMMENDATION: (ANNUAL) - Recommend routine annual screening mammography. BI-RADS CATEGORY: (1) - Negative. STANDARD QUALIFYING STATEMENTS: 1. This examination was not reviewed with the aid of Computer-Aided Detection (CAD). 2. A negative or benign imaging report should not preclude biopsy if clinically suspicious findings are present. 3. Dense breasts may obscure an underlying neoplasm. 4. This examination was reviewed with the aid of 3D breast imaging (tomosynthesis).
== END 2018-11-21 08:56 | disposition home or self-care (01) ==
LOC: DI 08:55
PROVIDERS: ATTEND Obstetrics & Gynecology
DX: O92.6 Galactorrhea (principal)
CPT/HCPCS: 77062; 77066

== ENCOUNTER 2018-11-21 09:14 | Outpatient (CLI) | payer MEDICARE, MEDICAID ==
--- NOTE | 2018-11-22 09:38 | XRAY Report ---
Reason: Thoracic back pain, back pain Procedure Date: 11/21/2018 Accession Number: [id number] / [id number] Procedure: XR - Thoracic Spine 3 View CPT Code: FULL RESULT: EXAM: THORACIC SPINE RADIOGRAPHY EXAM DATE: 11/21/2018 10:29 AM. CLINICAL HISTORY: Thoracic back pain, back pain. COMPARISON: THORACIC SPINE 2 VIEW 07/16/2017 1:58 PM. TECHNIQUE: 2 views. FINDINGS: Alignment: Normal. No spondylolisthesis or scoliosis. Bones: No fractures or bone lesions. Disks: Small osteophytes scattered in the thoracic spine most prominent in lower T-spine Soft Tissues: Normal. The visualized lungs and cardiomediastinal silhouette are normal. IMPRESSION: Mild DJD RADIA
--- NOTE | 2018-11-22 09:39 | XRAY Report ---
Reason: THORACIC BACK PAIN, BACK PAIN Procedure Date: 11/21/2018 Accession Number: [id number] / [id number] Procedure: XR - Lumbar Spine Complete CPT Code: FULL RESULT: EXAM: LUMBOSACRAL SPINE RADIOGRAPHY EXAM DATE: 11/21/2018 10:29 AM. CLINICAL HISTORY: THORACIC BACK PAIN, BACK PAIN. COMPARISONS: LUMBAR SPINE COMPLETE 08/14/2016 4:00 PM. TECHNIQUE: 5 views. FINDINGS: Alignment: Normal. No spondylolisthesis or scoliosis. Bones: Five cry-yfs-[id number] lumbar vertebral bodies are present. No fractures or bone lesions. Disks: Small osteophytes at every level. Mild disk space narrowing L4-L5. Facets: L5-S1 facet arthropathy Sacroiliac Joints: Unremarkable. Soft Tissues: Normal. The visualized bowel gas pattern is normal. IMPRESSION: Mild DJD RADIA
== END 2018-11-21 09:15 | disposition home or self-care (01) ==
LOC: DI 09:14
PROVIDERS: ATTEND Family Medicine
DX: M47.814 Spondylosis without myelopathy or radiculopathy, thoracic region (principal); M47.817 Spondylosis without myelopathy or radiculopathy, lumbosacral region; M51.36 Other intervertebral disc degeneration, lumbar region; N64.52 Nipple discharge
CPT/HCPCS: 72072; 72110; 77066; G0279; 77062

== ENCOUNTER 2019-01-04 13:30 | Outpatient (CLI) | payer MEDICARE, MEDICAID | END 2019-01-04 23:59 | disposition home or self-care (01) | LOC: LAB.R 13:30 | PROVIDERS: ATTEND Family Medicine | DX: R30.0 Dysuria (principal) | CPT/HCPCS: 87086 ==

== ENCOUNTER 2019-02-03 08:00 | Outpatient (CLI) | payer MEDICARE, MEDICAID ==
[2019-02-03 20:03] LABS: CANDIDA GROUP DNA NEGATIVE (NEGATIVE); CANDIDA KRUSEI DNA NEGATIVE (NEGATIVE); TRICHOMONAS VAGINALIS DNA NEGATIVE (NEGATIVE)
[2019-02-03 21:46] LABS: TRICHOMONAS VAGINALIS DNA NEGATIVE (NEGATIVE)
[2019-02-05 11:46] LABS: SOURCE VULVAR SWAB
== END 2019-02-03 23:59 | disposition home or self-care (01) ==
LOC: LAB.R 08:00
PROVIDERS: ATTEND Obstetrics & Gynecology
DX: Z20.828 Contact with and (suspected) exposure to other viral communicable diseases (principal); R10.2 Pelvic and perineal pain
CPT/HCPCS: 87491; 87529; 87591; 87661; 87801

== ENCOUNTER 2019-05-16 11:35 | Outpatient (CLI) | payer MEDICARE, MEDICAID | END 2019-05-16 11:36 | disposition critical access hospital (66) | LOC: EMS 11:35 | PROVIDERS: ATTEND Surgery | DX: R11.0 Nausea (principal); R73.09 Other abnormal glucose; R42 Dizziness and giddiness | CPT/HCPCS: A0425; A0429 ==

== ENCOUNTER 2019-05-16 12:02 | Emergency (ER) | payer MEDICARE, MEDICAID ==
[2019-05-16] MEDS ORDERED: ONDANSETRON ODT 4 MG TABLET TL STA (12:34)
--- NOTE | 2019-05-16 12:37 | ED Physician Documentation ---
History of Present Illness - Stated complaint Stated Complaint: DIABETIC ISSUE - Chief complaint Chief Complaint: General - History obtained from History obtained from: Patient (Patient is brought in by wellness spa manager because she is worried about her sugar being out of control. According to the patient, glucose reading was in the 70s, she drank and ate something and it went up to 220s. She called the wellness spa manager and very anxious about it. Crop Roller checked and it was 112. In the emergency room patient is alert and oriented. She appears nervous. She lost 70 to 80 pounds according to her. She does have appointment with the bliss press operator in 1 to 2 weeks. There is no complaint of chest pain no shortness of breath. Her last A1c was about 6 months ago and it was 9 point something. She does have 1 A1c check coming up next week.) - History of Present Illness Timing: Prior to arrival Review of Systems Ten Systems: 10 systems reviewed and negative Constitutional: reports: Reviewed and negative Eyes: reports: Reviewed and negative Ears: reports: Reviewed and negative Nose: reports: Reviewed and negative Throat: reports: Reviewed and negative Cardiac: reports: Reviewed and negative Respiratory: reports: Reviewed and negative GI: reports: Nausea, Reviewed and negative. denies: Abdominal Pain : reports: Reviewed and negative Skin: reports: Reviewed and negative Musculoskeletal: reports: Reviewed and negative Neurologic: reports: Reviewed and negative Psychiatric: reports: Reviewed and negative Endocrine: reports: Reviewed and negative Immunocompromised: reports: Reviewed and negative PD PAST MEDICAL HISTORY - Past Medical History Past Medical History: Yes Cardiovascular: Hypertension, High cholesterol, Deep vein thrombosis, Pulmonary embolism Respiratory: Sleep apnea Neuro: None Endocrine/Autoimmune: Type 2 diabetes GI: Other : Renal insuffiency HEENT: None Psych: Depression, Anxiety, Bipolar disorder, Schizophrenia, Other Musculoskeletal: Osteoarthritis Derm: None - Past Surgical History Past Surgical History: Yes General: Cholecystectomy, Other - Present Medications Home Medications: Ambulatory Orders Medication Instructions Recorded Confirmed Furosemide [Lasix] 40 mg PO DAILY 09/28/16 02/11/18 Gabapentin 200 mg PO BID 09/28/16 02/11/18 Metformin HCl 1,000 mg PO BID 09/28/16 02/11/18 Rivaroxaban [Xarelto] 20 mg PO DAILY PM 09/28/16 02/11/18 Rosuvastatin Calcium [Crestor] 40 mg PO DAILY 09/28/16 02/11/18 lamoTRIgine [LaMICtal] 200 mg PO DAILY 09/28/16 02/11/18 lisinopriL [Lisinopril] 2.5 mg PO DAILY 09/28/16 02/11/18 raNITIdine [Zantac] 150 mg PO BID 09/28/16 02/11/18 Escitalopram [Lexapro] 40 mg PO DAILY 12/18/16 02/11/18 Prazosin [Minipress] 5 mg PO QPM PRN 02/12/17 02/11/18 Ziprasidone HCl [Geodon] 80 mg PO BID 07/30/17 02/11/18 Acetaminophen [Tylenol Extra 500 mg PO PRN PRN 10/19/17 02/11/18 Strength] Multivitamin [Multiple Vitamins] 1 tab PO DAILY 10/19/17 02/11/18 Insulin Aspart [NovoLOG] 14 unit SUBQ ACHS 02/08/18 02/08/18 Insulin Detemir [Levemir Flextouch] 60 units SUBQ BID 02/08/18 02/08/18 Hydrocodone/Acetaminophen 1 - 2 each PO Q6H PRN #10 tablet 03/01/18 [Hydrocodon-Acetaminophen 5-325] - Allergies Allergies/Adverse Reactions: Allergies Allergy/AdvReac Type Severity Reaction Status Date / Time bupropion HCl * Allergy Rash Verified 05/16/19 12:09 [From Wellbutrin] cephalexin monohydrate * Allergy Rash Verified 05/16/19 12:09 [From Keflex] codeine Allergy Rash Verified 05/16/19 12:09 fluoxetine HCl * Allergy Anaphylaxis Verified 05/16/19 12:09 [From Prozac] lithium Allergy Rash Verified 05/16/19 12:09 Penicillins Allergy Rash Verified 05/16/19 12:09 phenytoin sodium * Allergy Rash Verified 05/16/19 12:09 [From Dilantin] phenytoin sodium extended * Allergy Rash Verified 05/16/19 12:09 [From Dilantin] - Social History Does the pt smoke?: No Smoking Status: Never smoker Does the pt drink ETOH?: Yes Does the pt have substance abuse?: No - Immunizations Immunizations are current?: Yes - POLST Patient has POLST: No PD ED PE NORMAL - Vitals Vital signs reviewed: Yes - General General: Alert and oriented X 3, No acute distress, Well developed/nourished (obese) - HEENT HEENT: Atraumatic, PERRL, EOMI, Moist mucous membranes - Neck Neck: Supple, no meningeal sign - Cardiac Cardiac: RRR, No murmur - Respiratory Respiratory: No respiratory distress, Clear bilaterally - Abdomen Abdomen: Normal bowel sounds, Soft, Non tender, Non distended - Derm Derm: Warm and dry - Extremities Extremities: No deformity - Neuro Neuro: Alert and oriented X 3 - Psych Psych: Normal mood, Normal affect Results - Vitals Vitals: Vital Signs - 24 hr 05/16/19 05/16/19 05/16/19 12:04 12:25 13:12 Temperature 97.3 C H Heart Rate 99 95 94 Respiratory 14 14 18 Rate Blood Pressure 131/84 H 131/84 H 112/74 O2 Saturation 96 96 96 Oxygen O2 Source Room air PD MEDICAL DECISION MAKING - ED course Complexity details: d/w patient ED course: Patient is apparently very anxious about her glycemic control. It has been fluctuating between 200-70 this morning. Crop Roller did check and it was 112. We will fingerstick in the emergency room. She is assured. She does have appointment with her primary care doctor for A1c and appointment with bliss press operator. Repeat fingerstick glucose is 117. This is disclosed with patient. She is that short again. She is asked to continue following up with her primary care doctor for further management. Departure - Departure Disposition: Home, Self Care Clinical Impression: Nausea Uncontrolled diabetes mellitus Qualifiers: Diabetes mellitus type: other specified (including ARTEMIO) Glycemic state: with hyperglycemia Qualified Code(s): E13.65 - Other specified diabetes mellitus with hyperglycemia Condition: Stable Instructions: Nausea Vomit Control Follow-Up: Andrzej Royal PA-C [Primary Care Provider] - Comments: Please follow-up with your primary care doctor for further management. Hopefully your A1c will slowly come down with better glycemic control.
[2019-05-16 13:12] VITALS: BP 112/74
== END 2019-05-16 13:24 | disposition home or self-care (01) ==
LOC: EDUNIT# → ED 12:02
DX: E11.65 Type 2 diabetes mellitus with hyperglycemia (principal); R11.0 Nausea; E11.22 Type 2 diabetes mellitus with diabetic chronic kidney disease; N18.9 Chronic kidney disease, unspecified; I12.9 Hypertensive chronic kidney disease with stage 1 through stage 4 chronic kidney disease, or unspecified chronic kidney disease; Z79.4 Long term (current) use of insulin
CPT/HCPCS: 99283; Q0162

== ENCOUNTER 2019-05-22 08:17 | Outpatient (CLI) | payer MEDICARE, MEDICAID ==
[2019-05-22 11:44] LABS: BASOPHILS # (AUTO) 0.1 10^3/uL (0.0-0.1); BASOPHILS % (AUTO) 0.7 %; EOSINOPHILS # (AUTO) 0.1 10^3/uL (0.0-0.7); EOSINOPHILS % (AUTO) 2.1 %; HGB - HEMOGLOBIN 15.5 g/dL (12.0-16.0); LYMPHOCYTES # (AUTO) 1.6 10^3/uL (1.5-3.5); LYMPHOCYTES % (AUTO) 23.8 %; MEAN CORPUSCULAR HEMOGLOBIN 30.5 pg (27.0-31.0); MEAN CORPUSCULAR VOLUME 92.1 fL (81.0-99.0); MEAN PLATELET VOLUME 10.3 fL (7.9-10.8); MONOCYTES # (AUTO) 0.5 10^3/uL (0.0-1.0); MONOCYTES % (AUTO) 7.2 %; NEUTROPHILS # (AUTO) 4.5 10^3/uL (1.5-6.6); NEUTROPHILS % (AUTO) 65.8 %; PLT - PLATELET COUNT 260 10^3/uL (130-450); RED BLOOD COUNT 5.09 10^6/uL (4.20-5.40); RED CELL DISTRIBUTION WIDTH 15.2 % (12.0-15.0); WHITE BLOOD COUNT 6.8 x10^3/uL (4.8-10.8)
[2019-05-22 12:32] LABS: BUN - BLOOD UREA NITROGEN 9 mg/dL (6-20); CARBON DIOXIDE - CO2 28 mmol/L (21-32); CHLORIDE 102 mmol/L (101-111); CHOL/HDL RATIO 3.1 (<4.4); CHOLESTEROL 135 mg/dL; CREATININE 0.7 mg/dL (0.4-1.0); GFR - MDRD 91 (>89); GLUCOSE 202 mg/dL (70-100); HDL CHOLESTEROL 44 mg/dL; LDL CHOLESTEROL,CALCULATED 21 mg/dL; LDL/HDL RATIO 0.5 (<4.4); LIPASE 21 U/L (22-51); SODIUM 139 mmol/L (135-145); VLDL CHOLESTEROL 70 mg/dL
[2019-05-22 12:50] LABS: HB2 TOTAL 15.5 g/dL; HEMOGLOBIN A1C 1.16 g/dL
== END 2019-05-22 23:59 | disposition home or self-care (01) ==
LOC: LAB.N 08:17
PROVIDERS: ATTEND Physician Assistant Medical
DX: E11.9 Type 2 diabetes mellitus without complications (principal); R10.13 Epigastric pain
CPT/HCPCS: 36415; 80048; 80061; 83036; 83690; 83721; 84443; 85025

== ENCOUNTER 2019-07-04 08:00 | Outpatient (CLI) | payer MEDICARE, MEDICAID ==
[2019-07-05 14:27] LABS: HCG UR QUAL NEGATIVE
[2019-07-05 20:32] LABS: CANDIDA GROUP DNA NEGATIVE (NEGATIVE); CANDIDA KRUSEI DNA NEGATIVE (NEGATIVE); TRICHOMONAS VAGINALIS DNA NEGATIVE (NEGATIVE)
[2019-07-05 23:02] LABS: TRICHOMONAS VAGINALIS DNA NEGATIVE (NEGATIVE)
== END 2019-07-04 23:59 | disposition home or self-care (01) ==
LOC: LAB.R 08:00
PROVIDERS: ATTEND Obstetrics & Gynecology
DX: Z12.4 Encounter for screening for malignant neoplasm of cervix (principal); R10.2 Pelvic and perineal pain
CPT/HCPCS: 81025; 87086; 87491; 87591; 87661; 87801

== ENCOUNTER 2019-07-11 08:00 | Outpatient (CLI) | payer MEDICARE, MEDICAID | END 2019-07-11 23:59 | disposition home or self-care (01) | LOC: COV 08:00 | PROVIDERS: ATTEND Family Medicine | DX: R05 Cough (principal); R50.9 Fever, unspecified | CPT/HCPCS: 81599 ==

== ENCOUNTER 2019-11-14 16:51 | Outpatient (CLI) | payer MEDICARE, MEDICAID | END 2019-11-14 23:59 | disposition home or self-care (01) | LOC: LAB.R 16:51 | PROVIDERS: ATTEND Family Medicine | DX: J02.9 Acute pharyngitis, unspecified (principal) | CPT/HCPCS: 87070; 87077 ==

== ENCOUNTER 2020-02-12 20:21 | Outpatient (CLI) | payer MEDICARE, MEDICAID | END 2020-02-12 20:22 | disposition home or self-care (01) | LOC: COV 20:21 | PROVIDERS: ATTEND Family Medicine | DX: R50.9 Fever, unspecified (principal); Z20.828 Contact with and (suspected) exposure to other viral communicable diseases; M79.10 Myalgia, unspecified site; R53.83 Other fatigue; R19.7 Diarrhea, unspecified; R11.2 Nausea with vomiting, unspecified; R09.81 Nasal congestion; R43.9 Unspecified disturbances of smell and taste; J02.9 Acute pharyngitis, unspecified ==

== ENCOUNTER 2020-03-08 15:51 | Emergency (ER) | payer MEDICARE, MEDICAID ==
[2020-03-08 16:41] LABS: BASOPHILS # (AUTO) 0.1 10^3/uL (0.0-0.1); BASOPHILS % (AUTO) 0.9 %; EOSINOPHILS # (AUTO) 0.1 10^3/uL (0.0-0.7); EOSINOPHILS % (AUTO) 2.1 %; HGB - HEMOGLOBIN 15.9 g/dL (12.0-16.0); LYMPHOCYTES # (AUTO) 1.7 10^3/uL (1.5-3.5); LYMPHOCYTES % (AUTO) 25.6 %; MEAN CORPUSCULAR HEMOGLOBIN 30.5 pg (27.0-31.0); MEAN CORPUSCULAR HGB CONC 33.1 g/dL (32.0-36.0); MEAN CORPUSCULAR VOLUME 92.1 fL (81.0-99.0); MEAN PLATELET VOLUME 9.3 fL (7.9-10.8); MONOCYTES # (AUTO) 0.5 10^3/uL (0.0-1.0); MONOCYTES % (AUTO) 7.8 %; NEUTROPHILS # (AUTO) 4.3 10^3/uL (1.5-6.6); NEUTROPHILS % (AUTO) 63.2 %; PLT - PLATELET COUNT 237 10^3/uL (130-450); RED BLOOD COUNT 5.22 10^6/uL (4.20-5.40); RED CELL DISTRIBUTION WIDTH 14.8 % (12.0-15.0); WHITE BLOOD COUNT 6.8 x10^3/uL (4.8-10.8)
[2020-03-08] MEDS ORDERED: HYDROmorphone 1 MG/ML CARPUJECT IVP STA ×3 (16:42→22:17)
--- NOTE | 2020-03-08 16:43 | ED Physician Documentation ---
PD HPI ABD PAIN - Stated complaint Stated Complaint: ABD HERNIA PX - Chief complaint Chief Complaint: Abd Pain - History obtained from History obtained from: Patient - Additional information Additional information: 44-year-old woman with history of DVT and PE, previously on anticoagulants but not currently. She has a known abdominal umbilical hernia and has seen a surgeon for it but her BMI was too high for an elective surgery. 4 days ago she had a minor fall and since then the hernia has been larger and discolored. Pain is now severe and she has watery stool. No fevers. Review of Systems Ten Systems: 10 systems reviewed and negative Constitutional: reports: Reviewed and negative Eyes: reports: Reviewed and negative Ears: reports: Reviewed and negative Nose: reports: Reviewed and negative Cardiac: reports: Reviewed and negative Respiratory: reports: Reviewed and negative PD PAST MEDICAL HISTORY - Past Medical History Cardiovascular: Hypertension, High cholesterol, Deep vein thrombosis, Pulmonary embolism Respiratory: Sleep apnea Neuro: None Endocrine/Autoimmune: Type 2 diabetes GI: Other : Renal insuffiency HEENT: None Psych: Depression, Anxiety, Bipolar disorder, Schizophrenia, Other Musculoskeletal: Osteoarthritis Derm: None - Past Surgical History Past Surgical History: Yes General: Cholecystectomy, Other - Present Medications Home Medications: Ambulatory Orders Medication Instructions Recorded Confirmed Furosemide [Lasix] 40 mg PO DAILY 09/28/16 02/11/18 Gabapentin 200 mg PO BID 09/28/16 02/11/18 Metformin HCl 1,000 mg PO BID 09/28/16 02/11/18 Rivaroxaban [Xarelto] 20 mg PO DAILY PM 09/28/16 02/11/18 Rosuvastatin Calcium [Crestor] 40 mg PO DAILY 09/28/16 02/11/18 lamoTRIgine [LaMICtal] 200 mg PO DAILY 09/28/16 02/11/18 lisinopriL [Lisinopril] 2.5 mg PO DAILY 09/28/16 02/11/18 raNITIdine [Zantac] 150 mg PO BID 09/28/16 02/11/18 Escitalopram [Lexapro] 40 mg PO DAILY 12/18/16 02/11/18 Prazosin [Minipress] 5 mg PO QPM PRN 02/12/17 02/11/18 Ziprasidone HCl [Geodon] 80 mg PO BID 07/30/17 02/11/18 Acetaminophen [Tylenol Extra 500 mg PO PRN PRN 10/19/17 02/11/18 Strength] Multivitamin [Multiple Vitamins] 1 tab PO DAILY 10/19/17 02/11/18 Insulin Aspart [NovoLOG] 14 unit SUBQ ACHS 02/08/18 02/08/18 Insulin Detemir [Levemir Flextouch] 60 units SUBQ BID 02/08/18 02/08/18 Hydrocodone/Acetaminophen 1 - 2 each PO Q6H PRN #10 tablet 03/01/18 [Hydrocodon-Acetaminophen 5-325] - Allergies Allergies/Adverse Reactions: Allergies Allergy/AdvReac Type Severity Reaction Status Date / Time bupropion HCl * Allergy Rash Verified 03/08/20 15:55 [From Wellbutrin] cephalexin monohydrate * Allergy Rash Verified 03/08/20 15:55 [From Keflex] codeine Allergy Rash Verified 03/08/20 15:55 fluoxetine HCl * Allergy Anaphylaxis Verified 03/08/20 15:55 [From Prozac] lithium Allergy Rash Verified 03/08/20 15:55 Penicillins Allergy Rash Verified 03/08/20 15:55 phenytoin sodium * Allergy Rash Verified 03/08/20 15:55 [From Dilantin] phenytoin sodium extended * Allergy Rash Verified 03/08/20 15:55 [From Dilantin] - Social History Does the pt smoke?: No Smoking Status: Never smoker Does the pt drink ETOH?: Yes Does the pt have substance abuse?: No - Immunizations Immunizations are current?: Yes - POLST Patient has POLST: No PD ED PE NORMAL - Vitals Vital signs reviewed: Yes - General General: Alert and oriented X 3, No acute distress - HEENT HEENT: PERRL, EOMI - Neck Neck: Supple, no meningeal sign, No bony TTP - Cardiac Cardiac: RRR, No murmur - Respiratory Respiratory: No respiratory distress - Abdomen Abdomen: Other (She has a very very large umbilical hernia, probably measures at least 20 cm from one end to the other. It is very tender and mildly discolored. She does have bowel sounds. There is mild diffuse tenderness.) - Back Back: No CVA TTP, No spinal TTP - Derm Derm: Normal color, Warm and dry - Extremities Extremities: No edema, No calf tenderness / cord - Neuro Neuro: Alert and oriented X 3, Normal speech - Psych Psych: Normal mood, Normal affect Results - Vitals Vitals: Vital Signs - 24 hr 03/08/20 03/08/20 03/08/20 15:55 18:38 20:12 Temperature 36.5 C 36.5 C Heart Rate 94 83 73 Respiratory 18 16 20 Rate Blood Pressure 131/90 H 118/79 136/85 H O2 Saturation 100 97 93 Oxygen O2 Source Room air - Labs Labs: Laboratory Tests 03/08/20 03/08/20 03/08/20 16:29 16:33 16:33 WBC 6.8 RBC 5.22 Hgb 15.9 Hct 48.1 H MCV 92.1 MCH 30.5 MCHC 33.1 RDW 14.8 Plt Count 237 MPV 9.3 Neut # (Auto) 4.3 Lymph # (Auto) 1.7 Fleming # (Auto) 0.5 Eos # (Auto) 0.1 Baso # (Auto) 0.1 Absolute Nucleated RBC 0.00 Nucleated RBC % 0.0 Sodium 139 Potassium 4.0 Chloride 102 Carbon Dioxide 25 Anion Gap 12.0 BUN 5 L Creatinine 0.6 Estimated GFR (MDRD) 109 Glucose 175 H Calcium 9.1 Total Bilirubin 0.4 AST 18 ALT 19 Alkaline Phosphatase 105 Total Protein 7.5 Albumin 4.1 Globulin 3.4 Albumin/Globulin Ratio 1.2 Lipase 23 Urine Color YELLOW Urine Clarity CLEAR Urine pH 6.0 Ur Specific [place] <=1.005 Urine Protein NEGATIVE Urine Glucose (UA) >=1000 H Urine Ketones NEGATIVE Urine Occult Blood NEGATIVE Urine Nitrite NEGATIVE Urine Bilirubin NEGATIVE Urine Urobilinogen 0.2 (NORMAL) Ur Leukocyte Esterase NEGATIVE Ur Microscopic Review NOT INDICATED Urine Culture Comments NOT INDICATED Urine HCG, Qual NEGATIVE - Rads (name of study) CT A/P Radiology: EMP read contemporaneously (Large right abdominal wall hernia containing colon and small bowel. No fluid in the sac. Appears similar to prior imaging. Possibility of right bladder dome thickening. Hepatomegaly.) PD MEDICAL DECISION MAKING - ED course ED course: I called the on-call surgeon, Dr. English after my initial evaluation to discuss whether he should consult immediately or we should perform imaging first and he would like to have some imaging done. Dr. English did come and see the patient after the CT was done, he personally saw and examined her. Confirmed that the hernia is incarcerated and nonreducible. Made some calls to anesthesia and his partners, unfortunately her BMI necessitates transfer to a tertiary facility given the lack of resources available here. Her prior surgeon was Dr. Bhardwaj at [facility] and [facility] is called for potential transfer. I called [facility] and initially spoke with Dr Gabriela Vaughan at [facility] who did not feel that she had an acute surgical need. What we agreed upon is that the transfer center would try to get a hold of her surgeon, Dr. Bhardwaj, noting that he is not on-call but if available he will talk with my surgeon, Dr. English, otherwise the transfer center will have Dr. Vaughan talk with Dr. English to figure out next steps. I was notified that they had spoken and subsequently Dr. Vaughan was accepting the patient in [facility]. Departure - Departure Disposition: 02 Transfer Acute Care Hosp Clinical Impression: Incarcerated hernia, Obesity, morbid, BMI 50 or higher Condition: Stable
[2020-03-08 16:56] LABS: ALBUMIN 4.1 g/dL (3.2-5.5); ALBUMIN/GLOBULIN RATIO 1.2 (1.0-2.2); BILIRUBIN,TOTAL 0.4 mg/dL (0.2-1.0); CALCIUM 9.1 mg/dL (8.5-10.3); CREATININE 0.6 mg/dL (0.4-1.0); TOTAL PROTEIN 7.5 g/dL (6.7-8.2)
[2020-03-08 17:13] LABS: BILIRUBIN,URINE NEGATIVE (NEGATIVE); GLUCOSE, URINE (UA) >=1000 mg/dL (NEGATIVE); KETONES,URINE (UA) NEGATIVE (NEGATIVE); LEUKOCYTE ESTERASE, URINE NEGATIVE (NEGATIVE); NITRITE,URINE NEGATIVE (NEGATIVE); OCCULT BLOOD,URINE NEGATIVE (NEGATIVE); PROTEIN,URINE NEGATIVE (NEGATIVE); UROBILINOGEN,URINE 0.2 (NORMAL) E.U./dL (NORMAL)
[2020-03-08 17:14] LABS: CLARITY,URINE CLEAR (CLEAR); HCG UR QUAL NEGATIVE
[2020-03-08] MEDS ORDERED: IOVERSOL 320 100 ML VIAL IVP ONE (18:25)
--- NOTE | 2020-03-08 18:44 | CT Report ---
PROCEDURE: Abdomen/Pelvis W INDICATIONS: IV only, abd pain/hernia CONTRAST: IV CONTRAST: Optiray 320 ml: 100 PO CONTRAST: *NO PO CONTRAST TECHNIQUE: After the administration of intravenous contrast, 5 mm thick sections acquired from the diaphragms to the symphysis. 5 mm thick coronal and sagittal reformats were acquired. For radiation dose reducti on, the following was used: automated exposure control, adjustment of mA and/or kV according to matias ent size. COMPARISON: CT abdomen and pelvis 11/01/2017. FINDINGS: Image quality: Poor. Right body touches the gantry creating artifact. ABDOMEN: Lung bases: Mild bibasilar streaky opacity most compatible with atelectasis. No pleural effusion. Hea rt size is normal. Suspect ASD occluder device. Solid organs: Liver is increased in size. Ill-defined hypodensity in the right lobe of the liver, () similar to 2018 and most likely a benign hemangioma. Gallbladder is surgically absent. Biliary s ystem is non dilated. Pancreas enhances normally. The spleen is enlarged measuring 14.7 cm. Hypoden se lesion at the inferior pole the spleen is similar to 2018 and most likely represents a hemangioma. Small splenules. No adrenal nodules. Kidneys demonstrate normal size and enhancement, without hydro nephrosis. Peritoneum and bowel: No small bowel obstruction. A few colonic diverticuli. The appendix is not defi nitely seen.. No free fluid or air. Nodes and vessels: No retroperitoneal or mesenteric adenopathy by size criteria. Aorta and inferior vena cava are normal in size. Miscellaneous: Large right lateral abdominal wall hernia. Overall the hernia appears similar to the [address] The hernia neck measures approximately 6 cm. The hernia contains multiple loops of small alejandra l and the transverse colon. No significantly dilated loops of bowel are identified. No free fluid. Th e hernia is incompletely visualized due to artifact. PELVIS: Genitourinary: Question of right bladder dome thickening, (). Uterus is deviated to the left. Miscellaneous: No inguinal hernias or adenopathy. Bones: No suspicious bony lesions. No vertebral body compression fractures. IMPRESSION: Reduced image quality due to body habitus and artifact. 1. No definite acute abnormality. No free fluid. 2. Large right abdominal wall hernia containing colon and small bowel. No fluid in the hernia sac is seen. Overall the hernia appears similar to the prior CT from 2018. Hernia is incompletely visualized . 3. Question of thickening at the right bladder dome. This may be artifactual. -Consider urinalysis for further evaluation. 4. Hepatomegaly. Stable hypodense lesions in the liver and the spleen most likely hemangioma. Reviewed by: Den Amaro MD on 03/08/2020 6:43 PM PST Approved by: Den Amaro MD on 03/08/2020 6:43 PM PST Station ID: [id number]
[2020-03-08] MEDS ORDERED: LORazepam 2 MG/ML VIAL IVP STA ×2 (20:34→22:42)
[2020-03-08 22:23] LABS: C. PNEUMONIAE- RESP PCR PANEL NOT DETECTED
[2020-03-08 23:24] VITALS: BP 121/78
--- NOTE | 2020-03-09 16:05 | CONSULTATION NOTE ---
Referring Provider Name of Referring Provider:: Dr. Lanier Consult Date: 03/08/20 Chief Complaint - Chief Complaint Chief Complaint: Abdominal pain and ventral hernia and superobese patient History of Present Illness - Admitted From Admitted From:: Home - History Obtained From Records Reviewed: EMR and emergency documentation History obtained from: Patient Exam Limitations: Other than limits as it relates to the CT scan and the patient's habitus, n - History of Present Illness HPI Comment/Other: 44-year-old female with superobesity and multiple comorbid states amongst which are diabetes, hypertension and others, presents with increasing pain and overl mago erythema by report surrounding her historic hernia for which she has had 2 failed operative interventions. She reports having undergone a laparoscopic repair as well as an open repair. She has been evaluated by Dr. Bhardwaj from [facility]. She has been tasked with using weight towards optimizing success in reducing risk of recurrence. She states that the hernia is not reducible as reported increasing pain associated with it and presented to the emergency room for further evaluation. Dr. Saenz from the emergency room requested surgical evaluation. History - Past Medical History Cardiovascular: reports: Hypertension, High cholesterol, Deep vein thrombosis, Pulmonary embolism Respiratory: reports: Sleep apnea Neuro: reports: None Endocrine/Autoimmune: reports: Type 2 diabetes GI: reports: Other : reports: Renal insuffiency HEENT: reports: None Psych: reports: Depression, Anxiety, Bipolar disorder, Schizophrenia, Other Musculoskeletal: reports: Osteoarthritis Derm: reports: None MRSA Hx?: Yes - Past Surgical History General: reports: Cholecystectomy, Other - POLST Patient has POLST: No Meds/Allgy - Home Medications Home Medications: Ambulatory Orders Medication Instructions Recorded Confirmed Furosemide [Lasix] 40 mg PO DAILY 09/28/16 02/11/18 Gabapentin 200 mg PO BID 09/28/16 02/11/18 Metformin HCl 1,000 mg PO BID 09/28/16 02/11/18 Rivaroxaban [Xarelto] 20 mg PO DAILY PM 09/28/16 02/11/18 Rosuvastatin Calcium [Crestor] 40 mg PO DAILY 09/28/16 02/11/18 lamoTRIgine [LaMICtal] 200 mg PO DAILY 09/28/16 02/11/18 lisinopriL [Lisinopril] 2.5 mg PO DAILY 09/28/16 02/11/18 raNITIdine [Zantac] 150 mg PO BID 09/28/16 02/11/18 Escitalopram [Lexapro] 40 mg PO DAILY 12/18/16 02/11/18 Prazosin [Minipress] 5 mg PO QPM PRN 02/12/17 02/11/18 Ziprasidone HCl [Geodon] 80 mg PO BID 07/30/17 02/11/18 Acetaminophen [Tylenol Extra 500 mg PO PRN PRN 10/19/17 02/11/18 Strength] Multivitamin [Multiple Vitamins] 1 tab PO DAILY 10/19/17 02/11/18 Insulin Aspart [NovoLOG] 14 unit SUBQ ACHS 02/08/18 02/08/18 Insulin Detemir [Levemir Flextouch] 60 units SUBQ BID 02/08/18 02/08/18 Hydrocodone/Acetaminophen 1 - 2 each PO Q6H PRN #10 tablet 03/01/18 [Hydrocodon-Acetaminophen 5-325] - Allergies Allergies/Adverse Reactions: Allergies Allergy/AdvReac Type Severity Reaction Status Date / Time bupropion HCl * Allergy Rash Verified 03/08/20 15:55 [From Wellbutrin] cephalexin monohydrate * Allergy Rash Verified 03/08/20 15:55 [From Keflex] codeine Allergy Rash Verified 03/08/20 15:55 fluoxetine HCl * Allergy Anaphylaxis Verified 03/08/20 15:55 [From Prozac] lithium Allergy Rash Verified 03/08/20 15:55 Penicillins Allergy Rash Verified 03/08/20 15:55 phenytoin sodium * Allergy Rash Verified 03/08/20 15:55 [From Dilantin] phenytoin sodium extended * Allergy Rash Verified 03/08/20 15:55 [From Dilantin] Review of Systems - Constitutional Constitutional: reports: Fatigue - Eyes Eyes: denies: Pain - Ears, Nose & Throat Ears, Nose & Throat: denies: Ear pain - Cardiovascular Cariovascular: denies: Irregular heart rate, Palpitations, Chest pain - Respiratory Respiratory: denies: Cough, Wheezing - Gastrointestinal Gastrointestinal: reports: Abdominal pain, Abdominal distention, Change in bowel habits, Nausea, Other (Overlying abdominal wall erythema per patient) - Psychiatric Psychiatric: reports: Depression Exam - Vital Signs Reviewed Vital Signs: Yes - Physical Exam General Appearance: positive: No acute distress, Alert, Mild distress Eyes Bilateral: positive: Normal inspection, PERRL, EOMI Neck: positive: Nml inspection Respiratory: positive: Chest non-tender, No respiratory distress, Breath sounds nml. negative: Wheezes, Rales, Rhonchi Cardiovascular: positive: Regular rate & rhythm Abdomen: positive: Tenderness, Other (Large midline supraumbilical hernia for which there was no ability to reduce contents into the port gamble abdominal cavity. There was no obvious overlying erythema. There was no overlying peritonitis on my exam with no rebound no guarding. She did report discomfort on my attempted taxis. Even with T). negative: Guarding, Rebound Skin: positive: Color nml Extremities: positive: Non-tender, Full ROM, Nml appearance Neurologic/Psychiatric: positive: Oriented x3, CN's nml (2-12), Motor nml, Sensation nml, Mood/affect nml Conclusion/Plan - Diagnosis Diagnosis: 1. Superobesity with multiple comorbid states. 2. Multiple prior failed ventral hernias. 3. Hypertension. 4. History of DVT and PE. 5. Large incarcerated hernia. 6. Diabetes. 7. Tobacco use and abuse. 8. Renal insufficiency. 9. Psychiatric disorder - Plan Plan: This is a 44-year-old female with superobesity multiple failed ventral hernia procedures with 1 open and 1 laparoscopic with a large greater the 20 cm defect at the anterior abdominal wall for which reduction of hernia contents to within the port gamble and abdominal cavity was not possible. She has lost more than 100 pounds intentionally towards optimizing success as a relates to her subsequent repair. However she continues to smoke and was advised of tobacco cessation at length as it relates to any urgent or elective operative intervention. Not knowing what her pulmonary status is at this time in the setting of longstanding tobacco use and abuse the extent of herniation which is near half of her intestinal complement including portions of her colon, I have significant concern performing any operative intervention on this patient with intent to repair the hernia simultaneously as this would invariably lead to respiratory compromise in this superobese patient. Obviously if she does indeed have bowel compromise we could proceed with laparotomy and just close over the hernia sac if indeed there was pending intestinal catastrophe without desire to proceed with intent to repair the hernia as well. However I believe this would not at all serve the patient in best interest. I have discussed this case with Vinicio Hong from anesthesia as well as Gordo Nuñez one of my surgical partners and given the patient's BMI of 63, multiple comorbid states, and the size of the defect especially as it relates to reducing its contents and anticipated respiratory compromise, this patient would be best served for transfer especially to the surgeon who she has historically been consulted and has an expertise in comfort in this unique patient population. Had this been a smaller volume hernia with a narrower defect we could have addressed this laparoscopically here but we opted to call the referral center for transfer after discussing with the above and ultimately with Dr. Saenz. Please note that this case was discussed with Dr. Travis Bhardwaj. He is the elisabeth vaughn's consulting surgeon at the [facility]. I mention to Dr. Bhardwaj the patient's presenting complaints, my review of the CAT scan which unfortunately cannot reveal the entirety of the abdominal hernia contents but only revealed a very large defect with a significant portion of her luminal content within the hernia sac. I expressed to him concerns about this patient who I would regardless want to keep overnight for observation however if she did indeed require operative intervention and we proceeded with a complex hernia repair to include component separation biologic bridging with underlay amongst others, her respiratory management postoperatively amongst the management of her other comorbid states and the associated risk of failure behooves us to consider the patient's ability to be cared for here to which Dr. Bhardwaj agreed and accepted transfer. Please note that voice recognition software was used to transcribe this note and inadvertent errors might persist in spite of review and editing. I am obliged to you for your attention. I am thankful to you for allowing me to participate with you in this care of this patient. - Lab Results Fish Bones: 03/08/20 16:33 03/08/20 16:33 - Diagnostic Imaging Results Diagnostic Imaging Results: positive: Prelim report reviewed Diagnostic Imaging Results Comments: CT abdomen pelvis impression: 1. Reduced image quality due to hot body habitus and artifact 2. Large right abdominal hernia containing colon and small bowel no fluid in the hernia sac is seen. Overall the hernia appears similar to the prior CT from 2018 hernias, incompletely visualized secondary to patient habitus. 3. Question of thickening at the right bladder dome. This may be artifactual. Consider urinalysis for further evaluation 4. Hepatomegaly. Stable hypodense lesions in the liver and the spleen most likely hemangioma.
== END 2020-03-08 23:25 | disposition short-term general hospital (02) ==
LOC: ED 15:51
DX: K42.0 Umbilical hernia with obstruction, without gangrene (principal); E66.01 Morbid (severe) obesity due to excess calories; Z68.44 Body mass index [BMI] 60.0-69.9, adult; I10 Essential (primary) hypertension; E11.29 Type 2 diabetes mellitus with other diabetic kidney complication; F17.200 Nicotine dependence, unspecified, uncomplicated; Z79.4 Long term (current) use of insulin; Z86.718 Personal history of other venous thrombosis and embolism; Z86.711 Personal history of pulmonary embolism; Z20.828 Contact with and (suspected) exposure to other viral communicable diseases
CPT/HCPCS: 36415; 74177; 80053; 81003; 81025; 83690; 85025; 96374; 96375; 96376; 99285; J1170; J2060; Q9967; 0202U; 81001; 87086

== ENCOUNTER 2020-03-08 23:16 | Outpatient (CLI) | payer MEDICARE, MEDICAID | END 2020-03-08 23:17 | disposition short-term general hospital (02) | LOC: EMS 23:16 | PROVIDERS: ATTEND Surgery | DX: K46.0 Unspecified abdominal hernia with obstruction, without gangrene (principal); Z68.44 Body mass index [BMI] 60.0-69.9, adult | CPT/HCPCS: A0425; A0428 ==

== ENCOUNTER 2020-03-25 13:07 | Outpatient (CLI) | payer MEDICARE, MEDICAID ==
--- NOTE | 2020-03-25 14:21 | SLEEP CARE CONSULTATION ---
Information from patient questionnaire entered by Kristin Vigil. I have reviewed and concur with the information entered by Kristin Vigil. This document represents the service I personally performed and the decisions made by me, Sushil Keller MD, [facility]. History of Present Illness Service Date and Time: 03/25/2020 1307 Previous diagnosis: Mild, Obstructive Sleep Apnea-Hypopnea Syndrome AHI: 9.8 (in 2018) Reason for follow up: annual (last seen 11/2017, not using CPAP) Equipment type: CPAP Equipment obtained from: [facility] Mask style: Full face Prior sleep studies: Yes Year and Where: 2017 - [facility] ; 2000 - [place] Type of Sleep Study: Polysomnography HPI additional information: HPI: Ms. Perry returned today for follow up of nasal CPAP therapy. She was diagnosed to have mild obstructive sleep apnea-hypopnea syndrome (AHI was 9.8 in 2018). The patient went to [facility] for the equipment and was fitted with a full face mask. She has not used her CPAP since January of 2018 because she lost the power cord while admitted to [facility]. [facility] was supposed to give her a new cord but never did. She recalls having slept much better on the CPAP. She continues to snore loudly and feels sleepy during the day. Subjective Missed days of use due to: reports: other (no power cord) Patient concerns: reports: dry mouth, nose, throat, other (cant get power cord replaced) Initial [place] Sleepiness Scale score: 13 (in 2018) Current [place] Sleepiness Scale score: 14 Allergies and Home Medications Drug allergies reviewed: Yes Home medication list reviewed: Yes Review of Systems Review of systems same as previous: Yes Physical Exam Vital signs obtained and entered by: To minimize the risk of COVID-19 exposure, detailed exam was not performed. Height: 5 ft 1 in Weight: 349 lb Body Mass Index: 65.9 BMI Classification: Morbidly Obese Impression and Plan IMPRESSION: 1. Obstructive Sleep Apnea-Hypopnea Syndrome, mild, presently untreated due to lack of supplies. Since it has been over 2 years of not using her CPAP, she will need a new sleep study to requalify her for supplies on Medicare. I will order a home sleep apnea test (HSAT). PLAN: 1. Schedule a home sleep apnea test (HSAT). 2. Try to lose weight 3. Return for follow up after the test. Visit Type: In Office Time Spent with Patient (minutes): 15 Provider Statement: I spent 100% of the Face to Face Visit with the patient with greater than 50% spent counseling the patient and coordination of care.
== END 2020-03-25 13:08 | disposition home or self-care (01) ==
LOC: SC 13:07
PROVIDERS: ATTEND Internal Medicine Pulmonary Disease
DX: G47.33 Obstructive sleep apnea (adult) (pediatric) (principal); E66.01 Morbid (severe) obesity due to excess calories; Z68.44 Body mass index [BMI] 60.0-69.9, adult
CPT/HCPCS: 99213; G0463; 99212

== ENCOUNTER 2020-03-28 21:30 | Outpatient (CLI) | payer MEDICARE, MEDICAID | END 2020-03-28 21:31 | disposition home or self-care (01) | LOC: SC 21:30 | PROVIDERS: ATTEND Internal Medicine Pulmonary Disease | DX: R09.02 Hypoxemia (principal); E66.01 Morbid (severe) obesity due to excess calories; Z68.44 Body mass index [BMI] 60.0-69.9, adult | CPT/HCPCS: G0399 ×2; 95806 ==

== ENCOUNTER 2020-04-03 07:00 | Outpatient (CLI) | payer MEDICARE, MEDICAID | END 2020-04-03 23:59 | disposition home or self-care (01) | LOC: LAB.R 07:00 | PROVIDERS: ATTEND Nurse Practitioner | DX: R19.7 Diarrhea, unspecified (principal) | CPT/HCPCS: 87493 ==

== ENCOUNTER 2020-04-22 10:02 | Outpatient (CLI) | payer MEDICARE, MEDICAID ==
--- NOTE | 2020-04-22 10:34 | SLEEP CARE CONSULTATION ---
Information from patient questionnaire entered by Kristin Vigil. I have reviewed and concur with the information entered by Kristin Vigil. This document represents the service I personally performed and the decisions made by me, Sushil Keller MD, [facility]. History of Present Illness Service Date and Time: 04/22/2020 1002 Initial [place] Sleepiness Scale score: 13 Current [place] Sleepiness Scale score: 13 Additional HPI information: HPI: Ms. Marquis returns for follow up of the home sleep apnea test (HSAT) she had on 03/28/21. The test showed no significant sleep disordered breathing (AHI was 4.5) with most of the respiratory events occurring during supine sleep (supine AHI was 6.0). [place] oxygen saturation was 77% with low-normal baseline oxygen saturation of 90%. The patient was informed of these findings. I explained to her that overall, she does not have significant sleep disordered breathing. Her oxygen saturation is borderline low, almost needing to use oxygen at night. She says that she just quit smoking. Sleep Study - Results Type of Sleep Study: Home sleep study Prior sleep studies: Yes Year and Where: 2017 - [facility] ; 2000 - [place] Allergies and Home Medications Drug allergies reviewed: Yes Home medication list reviewed: Yes Review of Systems Review of systems same as previous: Yes Physical Exam Vital signs obtained and entered by: To minimize the risk of COVID-19 exposure, detailed exam was not performed. Height: 5 ft 1 in Weight: 351 lb Body Mass Index: 66.3 BMI Classification: Morbidly Obese Impression and Plan IMPRESSION: 1. Obstructive Sleep Apnea-Hypopnea Syndrome, mild on her in- laboratory polysomnography but negative on her recent home sleep apnea test (HSAT). The patient is happy with the finding because she does not want to go back and use her CPAP. I told her to hang on to it in case she might need it later. I congratulated her on quitting smoking. I warned her that if she restarts, she will most likely go on oxygen therapy very soon. PLAN: 1. Discontinue CPAP therapy 2. Avoid weight gain. 3. Consider pulmonary function test to determine her baseline capacities. 4. Return to the sleep center on as needed basis. She should return if she gains weight. Visit Type: In Office Time Spent with Patient (minutes): 15 Provider Statement: I spent 100% of the Face to Face Visit with the patient with greater than 50% spent counseling the patient and coordination of care.
== END 2020-04-22 10:03 | disposition home or self-care (01) ==
LOC: SC 10:02
PROVIDERS: ATTEND Internal Medicine Pulmonary Disease
DX: G47.33 Obstructive sleep apnea (adult) (pediatric) (principal); E66.01 Morbid (severe) obesity due to excess calories; Z68.44 Body mass index [BMI] 60.0-69.9, adult
CPT/HCPCS: 99212; G0463

== ENCOUNTER 2020-05-29 08:20 | Outpatient (CLI) | payer MEDICARE, MEDICAID | END 2020-05-29 08:21 | disposition home or self-care (01) | LOC: DI 08:20 | PROVIDERS: ATTEND Internal Medicine | DX: R06.00 Dyspnea, unspecified (principal); Z86.711 Personal history of pulmonary embolism; I51.7 Cardiomegaly | CPT/HCPCS: 93306 ==

== ENCOUNTER 2020-06-05 08:00 | Outpatient (CLI) | payer MEDICARE, MEDICAID ==
[2020-06-05 18:14] LABS: BASOPHILS % (AUTO) 0.5 %; EOSINOPHILS # (AUTO) 0.2 10^3/uL (0.0-0.7); EOSINOPHILS % (AUTO) 3.4 %; HGB - HEMOGLOBIN 14.9 g/dL (12.0-16.0); LYMPHOCYTES # (AUTO) 1.4 10^3/uL (1.5-3.5); LYMPHOCYTES % (AUTO) 25.2 %; MEAN CORPUSCULAR HEMOGLOBIN 30.2 pg (27.0-31.0); MEAN CORPUSCULAR HGB CONC 32.7 g/dL (32.0-36.0); MEAN CORPUSCULAR VOLUME 92.1 fL (81.0-99.0); MEAN PLATELET VOLUME 10.1 fL (7.9-10.8); MONOCYTES # (AUTO) 0.5 10^3/uL (0.0-1.0); MONOCYTES % (AUTO) 9.2 %; NEUTROPHILS # (AUTO) 3.4 10^3/uL (1.5-6.6); NEUTROPHILS % (AUTO) 61.5 %; PLT - PLATELET COUNT 237 10^3/uL (130-450); RED BLOOD COUNT 4.94 10^6/uL (4.20-5.40); RED CELL DISTRIBUTION WIDTH 14.5 % (12.0-15.0); WHITE BLOOD COUNT 5.5 x10^3/uL (4.8-10.8)
[2020-06-05 18:47] LABS: CREATININE,URINE 32.3 mg/dL
[2020-06-05 18:48] LABS: ALBUMIN 3.8 g/dL (3.2-5.5); ALBUMIN/GLOBULIN RATIO 1.3 (1.0-2.2); ALKALINE PHOSPHATASE 113 IU/L (42-121); ALT ALANINE AMINOTRANSFERASE 19 IU/L (10-60); AST ASPARTATE AMINOTRANSFERASE 14 IU/L (10-42); BILIRUBIN,TOTAL 0.6 mg/dL (0.2-1.0); BUN - BLOOD UREA NITROGEN 6 mg/dL (6-20); CALCIUM 9.1 mg/dL (8.5-10.3); CARBON DIOXIDE - CO2 24 mmol/L (21-32); CHLORIDE 103 mmol/L (101-111); CHOL/HDL RATIO 2.7 (<4.4); CHOLESTEROL 125 mg/dL; CREATININE 0.7 mg/dL (0.4-1.0); GLUCOSE 123 mg/dL (70-100); HDL CHOLESTEROL 46 mg/dL; LDL CHOLESTEROL,CALCULATED 43 mg/dL; LDL/HDL RATIO 0.9 (<4.4); TOTAL PROTEIN 6.7 g/dL (6.7-8.2); VLDL CHOLESTEROL 36 mg/dL
[2020-06-05 19:05] LABS: MICROALBUMIN,URINE < 0.2 mg/dL (0-300.0)
[2020-06-05 20:42] LABS: HEMOGLOBIN A1c% 8.1 % (4.27-6.07)
== END 2020-06-05 23:59 | disposition home or self-care (01) ==
LOC: LAB.WCP 08:00
PROVIDERS: ATTEND Family Medicine
DX: E11.22 Type 2 diabetes mellitus with diabetic chronic kidney disease (principal)
CPT/HCPCS: 36415; 80053; 80061; 82043; 82570; 83036; 83721; 84443; 85025

== ENCOUNTER 2020-06-12 08:00 | Outpatient (CLI) | payer MEDICARE, MEDICAID | END 2020-06-12 23:59 | disposition home or self-care (01) | LOC: LAB.WCP 08:00 | PROVIDERS: ATTEND Surgery | DX: Z72.0 Tobacco use (principal) | CPT/HCPCS: 80323; 81599 ==

== ENCOUNTER 2020-06-28 08:00 | Outpatient (CLI) | payer MEDICARE, MEDICAID | END 2020-06-28 23:59 | disposition home or self-care (01) | LOC: LAB.R 08:00 | PROVIDERS: ATTEND Nurse Practitioner | DX: T81.49XA Infection following a procedure, other surgical site, initial encounter (principal); K43.0 Incisional hernia with obstruction, without gangrene | CPT/HCPCS: 87070; 87181; 87205 ==

== ENCOUNTER 2020-06-29 14:14 | Emergency (ER) | payer MEDICARE, MEDICAID ==
--- NOTE | 2020-06-29 14:31 | ED Physician Documentation ---
History of Present Illness - Stated complaint Stated Complaint: SURGERY COMPLICATIONS - Chief complaint Chief Complaint: Abd Pain - History obtained from History obtained from: Patient - History of Present Illness Timing: How many days ago (5) - Additonal information Additional information: 45-year-old female with a history of morbid obesity has had a large ventral wall hernia repaired by Dr. Bhardwaj at on 06/14/2020. She was in the hospital 5 days and went home with a ZOFIA drain in place. The drain has continued to drain and the area around the insertion of the drain became erythematous 5 days ago. The portion of the abdominal wall below the umbilicus involved with the incision has become red over the past 2 days and last night she began to run a fever of 100. She was asked by her surgeon to come to the ED for evaluation. Review of Systems Constitutional: reports: Fever, Fatigue. denies: Myalgias Eyes: denies: Decreased vision Ears: denies: Ear pain Nose: denies: Rhinorrhea / runny nose, Congestion Throat: denies: Oral lesions / sores, Sore throat Cardiac: denies: Chest pain / pressure, Palpitations Respiratory: denies: Dyspnea, Cough GI: reports: Diarrhea. denies: Abdominal Pain, Nausea, Vomiting : denies: Dysuria, Frequency Skin: denies: Rash Musculoskeletal: denies: Neck pain, Back pain, Extremity pain Neurologic: denies: Generalized weakness, Focal weakness, Numbness PD PAST MEDICAL HISTORY - Past Medical History Cardiovascular: Hypertension, High cholesterol, Deep vein thrombosis, Pulmonary embolism Respiratory: Sleep apnea Neuro: None Endocrine/Autoimmune: Type 2 diabetes GI: Other : Renal insuffiency HEENT: None Psych: Depression, Anxiety, Bipolar disorder, Schizophrenia, Other Musculoskeletal: Osteoarthritis Derm: None - Past Surgical History Past Surgical History: Yes General: Cholecystectomy, Other - Present Medications Home Medications: Ambulatory Orders Medication Instructions Recorded Confirmed Furosemide [Lasix] 40 mg PO DAILY 09/28/16 02/11/18 Gabapentin 200 mg PO BID 09/28/16 02/11/18 Metformin HCl 1,000 mg PO BID 09/28/16 02/11/18 Rivaroxaban [Xarelto] 20 mg PO DAILY PM 09/28/16 02/11/18 Rosuvastatin Calcium [Crestor] 40 mg PO DAILY 09/28/16 02/11/18 lamoTRIgine [LaMICtal] 200 mg PO DAILY 09/28/16 02/11/18 lisinopriL [Lisinopril] 2.5 mg PO DAILY 09/28/16 02/11/18 raNITIdine [Zantac] 150 mg PO BID 09/28/16 02/11/18 Escitalopram [Lexapro] 40 mg PO DAILY 12/18/16 02/11/18 Prazosin [Minipress] 5 mg PO QPM PRN 02/12/17 02/11/18 Ziprasidone HCl [Geodon] 80 mg PO BID 07/30/17 02/11/18 Acetaminophen [Tylenol Extra 500 mg PO PRN PRN 10/19/17 02/11/18 Strength] Multivitamin [Multiple Vitamins] 1 tab PO DAILY 10/19/17 02/11/18 Insulin Aspart [NovoLOG] 14 unit SUBQ ACHS 02/08/18 02/08/18 Insulin Detemir [Levemir Flextouch] 60 units SUBQ BID 02/08/18 02/08/18 Hydrocodone/Acetaminophen 1 - 2 each PO Q6H PRN #10 tablet 03/01/18 [Hydrocodon-Acetaminophen 5-325] Doxycycline Hyclate 100 mg PO BID #14 tab 06/29/20 - Allergies Allergies/Adverse Reactions: Allergies Allergy/AdvReac Type Severity Reaction Status Date / Time bupropion HCl * Allergy Rash Verified 06/29/20 14:21 [From Wellbutrin] cephalexin monohydrate * Allergy Rash Verified 06/29/20 14:21 [From Keflex] codeine Allergy Rash Verified 06/29/20 14:21 fluoxetine HCl * Allergy Anaphylaxis Verified 06/29/20 14:21 [From Prozac] lithium Allergy Rash Verified 06/29/20 14:21 Penicillins Allergy Rash Verified 06/29/20 14:21 phenytoin sodium * Allergy Rash Verified 06/29/20 14:21 [From Dilantin] phenytoin sodium extended * Allergy Rash Verified 06/29/20 14:21 [From Dilantin] - Social History Does the pt smoke?: No Smoking Status: Never smoker Does the pt drink ETOH?: Yes Does the pt have substance abuse?: No - Immunizations Immunizations are current?: Yes - POLST Patient has POLST: No PD ED PE NORMAL - Vitals Vital signs reviewed: Yes (normal afebrile ) - General General: Alert and oriented X 3, No acute distress, Well developed/nourished, Other (Morbidly obese female appears well. ) - HEENT HEENT: Atraumatic, PERRL, EOMI - Neck Neck: Supple, no meningeal sign, No bony TTP - Cardiac Cardiac: RRR, No murmur - Respiratory Respiratory: No respiratory distress, Clear bilaterally - Abdomen Abdomen: Normal bowel sounds, Soft, Other (morbidly obese with midline incision stapled. There is mild inflamation along the margins of the upper incision and this extends to the left side of the abdominal wall 8-10cm with blanching erythema. ) - Back Back: No CVA TTP, No spinal TTP - Derm Derm: Normal color, Warm and dry - Extremities Extremities: No deformity, No edema - Neuro Neuro: Alert and oriented X 3, configuration management administrator 2-12 intact, No motor deficit, No sensory deficit, Normal speech Eye Opening: Spontaneous Motor: Obeys Commands Verbal: Oriented GCS Score: 15 - Psych Psych: Normal mood, Normal affect Results - Vitals Vitals: Vital Signs - 24 hr 06/29/20 06/29/20 14:18 14:42 Temperature 36.2 C L Heart Rate 93 87 Respiratory 16 14 Rate Blood Pressure 95/65 144/71 H O2 Saturation 94 93 Oxygen O2 Source Room air - Labs Labs: Microbiology 06/29/20 15:39 Body Fluid Culture - Preliminary Other - Drainage Laboratory Tests 06/29/20 06/29/20 06/29/20 15:10 15:10 15:10 WBC 10.6 RBC 4.17 L Hgb 12.4 Hct 37.7 MCV 90.4 MCH 29.7 MCHC 32.9 RDW 13.6 Plt Count 285 MPV 9.0 Neut # (Auto) 8.4 H Lymph # (Auto) 1.1 L [place] # (Auto) 0.8 Eos # (Auto) 0.1 Baso # (Auto) 0.0 Absolute Nucleated RBC 0.00 Nucleated RBC % 0.0 Sodium 136 Potassium 3.9 Chloride 98 L Carbon Dioxide 23 Anion Gap 15.0 H BUN 8 Creatinine 0.8 Estimated GFR (MDRD) 78 L Glucose 178 H Lactic Acid 0.8 Calcium 8.4 L Total Bilirubin 0.6 AST 15 ALT 20 Alkaline Phosphatase 172 H Total Protein 6.8 Albumin 3.0 L Globulin 3.8 Albumin/Globulin Ratio 0.8 L Lipase 15 L PD MEDICAL DECISION MAKING - ED course Complexity details: reviewed old records, reviewed results, re-evaluated patient, considered differential, d/w patient ED course: 45 y/o female With a recent surgical procedure appears to have some cellulitis to the abdominal wall and surrounding the port for the drain. She presents to the emergency department today afebrile with report of a history of fever. She has a normal white blood cell count she is not tachycardic she does not appear ill. She does have infection and she has a high risk wound secondary to her morbid obesity. She is administered 2 g of Rocephin intravenously. Dr. Keller is consulted in the case from the [facility] general surgery and after description of the patient's course and examination he recommends administration of doxycycline twice daily for 1 week and follow-up with Dr. Bhardwaj in the next 2 to 3 days. The patient does have an appointment in [address] Bhardwaj office will call the patient if they want her to be seen sooner. The margins of the erythema are marked and the patient is instructed to return should she have progression beyond the margins. Departure - Departure Disposition: 01 Home, Self Care Clinical Impression: Cellulitis Qualifiers: Site of cellulitis: trunk Site of cellulitis of trunk: abdominal wall Qualified Code(s): L03.311 - Cellulitis of abdominal wall Condition: Stable Instructions: ED Infec Skin Cellulitis Follow-Up: Billie Narayanan ARNP, [facility] [Primary Care Provider] - MARGARET BHARDWAJ [Physician No Access] - Prescriptions: Doxycycline Hyclate 100 mg PO BID #14 tab Comments: Today it appears you have an infection in the skin of the abdominal wall and the expectation is that the redness to the abdominal wall will receded from the puga placed on the skin. If you find that the redness exceeds beyond the marked area return to the emergency department or follow-up with the [facility]. This infection can worsen and this infection can be deeper than what it appears. Follow-up with your surgeon as planned.
[2020-06-29] MEDS ORDERED: cefTRIAXone 2 GM in SODIUM CHLORIDE 0.9% MINIBAG 100 ML IV STA (14:46)
[2020-06-29 15:18] LABS: BASOPHILS % (AUTO) 0.4 %; EOSINOPHILS # (AUTO) 0.1 10^3/uL (0.0-0.7); EOSINOPHILS % (AUTO) 0.9 %; HCT - HEMATOCRIT 37.7 % (37.0-47.0); HGB - HEMOGLOBIN 12.4 g/dL (12.0-16.0); LYMPHOCYTES # (AUTO) 1.1 10^3/uL (1.5-3.5); LYMPHOCYTES % (AUTO) 10.5 %; MEAN CORPUSCULAR HEMOGLOBIN 29.7 pg (27.0-31.0); MEAN CORPUSCULAR HGB CONC 32.9 g/dL (32.0-36.0); MEAN CORPUSCULAR VOLUME 90.4 fL (81.0-99.0); MONOCYTES # (AUTO) 0.8 10^3/uL (0.0-1.0); MONOCYTES % (AUTO) 7.9 %; NEUTROPHILS # (AUTO) 8.4 10^3/uL (1.5-6.6); NEUTROPHILS % (AUTO) 79.8 %; PLT - PLATELET COUNT 285 10^3/uL (130-450); RED BLOOD COUNT 4.17 10^6/uL (4.20-5.40); RED CELL DISTRIBUTION WIDTH 13.6 % (12.0-15.0); WHITE BLOOD COUNT 10.6 x10^3/uL (4.8-10.8)
[2020-06-29 15:34] LABS: ALBUMIN/GLOBULIN RATIO 0.8 (1.0-2.2); BILIRUBIN,TOTAL 0.6 mg/dL (0.2-1.0); CALCIUM 8.4 mg/dL (8.5-10.3); CREATININE 0.8 mg/dL (0.4-1.0); POTASSIUM 3.9 mmol/L (3.5-5.0); TOTAL PROTEIN 6.8 g/dL (6.7-8.2)
[2020-06-29 16:38] VITALS: BP 144/88
== END 2020-06-29 16:59 | disposition home or self-care (01) ==
LOC: ED 14:14
DX: L03.311 Cellulitis of abdominal wall (principal); Z98.890 Other specified postprocedural states; E66.01 Morbid (severe) obesity due to excess calories; Z68.44 Body mass index [BMI] 60.0-69.9, adult; I10 Essential (primary) hypertension; E11.9 Type 2 diabetes mellitus without complications; Z79.4 Long term (current) use of insulin; Z86.718 Personal history of other venous thrombosis and embolism; Z86.711 Personal history of pulmonary embolism; Z79.01 Long term (current) use of anticoagulants
CPT/HCPCS: 36415; 80053; 83605; 83690; 85025; 87040; 87070; 87150; 87181; 87205; 96365; 99283; 99284

== ENCOUNTER 2020-07-01 15:10 | Emergency (ER) | payer MEDICARE, MEDICAID ==
[2020-07-01 15:59] LABS: BASOPHILS # (AUTO) 0.1 10^3/uL (0.0-0.1); BASOPHILS % (AUTO) 0.4 %; EOSINOPHILS # (AUTO) 0.2 10^3/uL (0.0-0.7); HGB - HEMOGLOBIN 12.4 g/dL (12.0-16.0); LYMPHOCYTES # (AUTO) 1.2 10^3/uL (1.5-3.5); LYMPHOCYTES % (AUTO) 10.1 %; MEAN CORPUSCULAR HEMOGLOBIN 29.7 pg (27.0-31.0); MEAN CORPUSCULAR HGB CONC 32.6 g/dL (32.0-36.0); MEAN CORPUSCULAR VOLUME 91.1 fL (81.0-99.0); MEAN PLATELET VOLUME 9.1 fL (7.9-10.8); MONOCYTES # (AUTO) 0.9 10^3/uL (0.0-1.0); MONOCYTES % (AUTO) 8.2 %; NEUTROPHILS # (AUTO) 9.1 10^3/uL (1.5-6.6); NEUTROPHILS % (AUTO) 78.8 %; PLT - PLATELET COUNT 300 10^3/uL (130-450); RED BLOOD COUNT 4.17 10^6/uL (4.20-5.40); RED CELL DISTRIBUTION WIDTH 13.9 % (12.0-15.0); WHITE BLOOD COUNT 11.5 x10^3/uL (4.8-10.8)
[2020-07-01 16:10] LABS: ALBUMIN 2.8 g/dL (3.2-5.5); ALBUMIN/GLOBULIN RATIO 0.7 (1.0-2.2); ALKALINE PHOSPHATASE 184 IU/L (42-121); ALT ALANINE AMINOTRANSFERASE 22 IU/L (10-60); AST ASPARTATE AMINOTRANSFERASE 26 IU/L (10-42); BILIRUBIN,TOTAL 0.3 mg/dL (0.2-1.0); BUN - BLOOD UREA NITROGEN 11 mg/dL (6-20); CALCIUM 8.7 mg/dL (8.5-10.3); CARBON DIOXIDE - CO2 24 mmol/L (21-32); CHLORIDE 99 mmol/L (101-111); CREATININE 0.7 mg/dL (0.4-1.0); GFR - MDRD 91 (>89); GLUCOSE 252 mg/dL (70-100); IONIZED CALCIUM IF INDICATED NO; POTASSIUM 3.9 mmol/L (3.5-5.0); SODIUM 139 mmol/L (135-145); TOTAL PROTEIN 7.1 g/dL (6.7-8.2)
--- NOTE | 2020-07-01 16:27 | ED Physician Documentation ---
History of Present Illness - Stated complaint Stated Complaint: FEVER,SENT BY DR - Chief complaint Chief Complaint: General - History obtained from History obtained from: Patient - History of Present Illness Timing: Today Pain level max: 0 Pain level now: 0 - Additonal information Additional information: 45-year-old female is status post a ventral hernia repair by Dr. Jc Bhardwaj at the [facility] on 06/14/2020. Since that time she has had increasing redness to her abdominal wall. Seen here 2 days ago and started on doxycycline. Had a blood culture that was positive for staph epidermidis. She states she has been having fevers 100-1 01 at home. States she is not feeling any better despite being on the doxycycline. No vomiting. No diarrhea. No constipation. Nothing makes it better or worse. Review of Systems Ten Systems: 10 systems reviewed and negative Constitutional: reports: Fever, Chills Ears: denies: Ear pain Nose: denies: Rhinorrhea / runny nose, Congestion Throat: denies: Sore throat Cardiac: denies: Chest pain / pressure, Palpitations Respiratory: denies: Dyspnea, Cough GI: reports: Abdominal Pain (Occasionally has some cramping and pain). denies: Nausea, Vomiting, Diarrhea : denies: Dysuria, Frequency, Hesitancy Musculoskeletal: denies: Neck pain, Back pain Neurologic: denies: Headache PD PAST MEDICAL HISTORY - Past Medical History Cardiovascular: Hypertension, High cholesterol, Deep vein thrombosis, Pulmonary embolism Respiratory: Sleep apnea Neuro: None Endocrine/Autoimmune: Type 2 diabetes GI: Other : Renal insuffiency HEENT: None Psych: Depression, Anxiety, Bipolar disorder, Schizophrenia, Other Musculoskeletal: Osteoarthritis Derm: None - Past Surgical History Past Surgical History: Yes General: Cholecystectomy, Other - Present Medications Home Medications: Ambulatory Orders Medication Instructions Recorded Confirmed Furosemide [Lasix] 40 mg PO DAILY 09/28/16 02/11/18 Gabapentin 200 mg PO BID 09/28/16 02/11/18 Metformin HCl 1,000 mg PO BID 09/28/16 02/11/18 Rivaroxaban [Xarelto] 20 mg PO DAILY PM 09/28/16 02/11/18 Rosuvastatin Calcium [Crestor] 40 mg PO DAILY 09/28/16 02/11/18 lamoTRIgine [LaMICtal] 200 mg PO DAILY 09/28/16 02/11/18 lisinopriL [Lisinopril] 2.5 mg PO DAILY 09/28/16 02/11/18 raNITIdine [Zantac] 150 mg PO BID 09/28/16 02/11/18 Escitalopram [Lexapro] 40 mg PO DAILY 12/18/16 02/11/18 Prazosin [Minipress] 5 mg PO QPM PRN 02/12/17 02/11/18 Ziprasidone HCl [Geodon] 80 mg PO BID 07/30/17 02/11/18 Acetaminophen [Tylenol Extra 500 mg PO PRN PRN 10/19/17 02/11/18 Strength] Multivitamin [Multiple Vitamins] 1 tab PO DAILY 10/19/17 02/11/18 Insulin Aspart [NovoLOG] 14 unit SUBQ ACHS 02/08/18 02/08/18 Insulin Detemir [Levemir Flextouch] 60 units SUBQ BID 02/08/18 02/08/18 Hydrocodone/Acetaminophen 1 - 2 each PO Q6H PRN #10 tablet 03/01/18 [Hydrocodon-Acetaminophen 5-325] Doxycycline Hyclate 100 mg PO BID #14 tab 06/29/20 - Allergies Allergies/Adverse Reactions: Allergies Allergy/AdvReac Type Severity Reaction Status Date / Time bupropion HCl * Allergy Rash Verified 07/01/20 16:22 [From Wellbutrin] cephalexin monohydrate * Allergy Rash Verified 07/01/20 16:22 [From Keflex] codeine Allergy Rash Verified 07/01/20 16:22 fluoxetine HCl * Allergy Anaphylaxis Verified 07/01/20 16:22 [From Prozac] lithium Allergy Rash Verified 07/01/20 16:22 Penicillins Allergy Rash Verified 07/01/20 16:22 phenytoin sodium * Allergy Rash Verified 07/01/20 16:22 [From Dilantin] phenytoin sodium extended * Allergy Rash Verified 07/01/20 16:22 [From Dilantin] - Social History Does the pt smoke?: No Smoking Status: Never smoker Does the pt drink ETOH?: Yes Does the pt have substance abuse?: No - Immunizations Immunizations are current?: Yes - POLST Patient has POLST: No PD ED PE NORMAL - Vitals Vital signs reviewed: Yes - General General: Alert and oriented X 3, No acute distress, Other (morbidly obese female) - HEENT HEENT: PERRL, Moist mucous membranes - Neck Neck: Supple, no meningeal sign - Cardiac Cardiac: RRR, Strong equal pulses - Respiratory Respiratory: No respiratory distress, Clear bilaterally - Abdomen Abdomen: Soft, Non distended, Other - Derm Derm: Warm and dry - Extremities Extremities: No calf tenderness / cord - Neuro Neuro: Alert and oriented X 3 - Psych Psych: Normal mood, Normal affect - Free text exam Free text exam: Induration along the aspect of the incision around the umbilicus. There is erythema below the umbilicus, approximately 6 x 8 cm. There is no drainage from the surgical incision. There is slight purulent drainage from the ZOFIA drain site on the left side of the abdomen. Minimal erythema at this site Results - Vitals Vitals: Vital Signs - 24 hr 07/01/20 16:00 Temperature 36.6 C Heart Rate 101 H Respiratory 16 Rate Blood Pressure 139/88 H O2 Saturation 99 Oxygen O2 Source Room air - Labs Labs: Laboratory Tests 07/01/20 07/01/20 07/01/20 15:51 15:51 15:51 WBC 11.5 H RBC 4.17 L Hgb 12.4 Hct 38.0 MCV 91.1 MCH 29.7 MCHC 32.6 RDW 13.9 Plt Count 300 MPV 9.1 Neut # (Auto) 9.1 H Lymph # (Auto) 1.2 L [place] # (Auto) 0.9 Eos # (Auto) 0.2 Baso # (Auto) 0.1 Absolute Nucleated RBC 0.00 Nucleated RBC % 0.0 Sodium 139 Potassium 3.9 Chloride 99 L Carbon Dioxide 24 Anion Gap 16.0 H BUN 11 Creatinine 0.7 Estimated GFR (MDRD) 91 Glucose 252 H Lactic Acid 1.1 Calcium 8.7 Ionized Calcium NO Total Bilirubin 0.3 AST 26 ALT 22 Alkaline Phosphatase 184 H Total Protein 7.1 Albumin 2.8 L Globulin 4.3 H Albumin/Globulin Ratio 0.7 L Nasal Adenovirus (PCR) Nasal B. parapertussis DNA (PCR) Nasal Coronavir 229E PCR Nasal Coronavir HKU1 PCR Nasal Coronavir NL63 PCR Nasal Coronavir OC43 PCR Nasal Enterovir/Rhinovir PCR Nasal Influenza B PCR Nasal Influenza A PCR Nasal Parainfluen 1 PCR Nasal Parainfluen 2 PCR Nasal Parainfluen 3 PCR Nasal Parainfluen 4 PCR Nasal RSV (PCR) Nasal B.pertussis DNA PCR Nasal C.pneumoniae (PCR) [place]ale Human Metapneumo PCR Nasal M.pneumoniae (PCR) Nasal SARS-CoV-2 (PCR) 07/01/20 16:30 WBC RBC Hgb Hct MCV MCH MCHC RDW Plt Count MPV Neut # (Auto) Lymph # (Auto) [place] # (Auto) Eos # (Auto) Baso # (Auto) Absolute Nucleated RBC Nucleated RBC % Sodium Potassium Chloride Carbon Dioxide Anion Gap BUN Creatinine Estimated GFR (MDRD) Glucose Lactic Acid Calcium Ionized Calcium Total Bilirubin AST ALT Alkaline Phosphatase Total Protein Albumin Globulin Albumin/Globulin Ratio Nasal Adenovirus (PCR) NOT DETECTED Nasal B. parapertussis DNA (PCR) NOT DETECTED Nasal Coronavir 229E PCR NOT DETECTED Nasal Coronavir HKU1 PCR NOT DETECTED Nasal Coronavir NL63 PCR NOT DETECTED Nasal Coronavir OC43 PCR NOT DETECTED Nasal Enterovir/Rhinovir PCR NOT DETECTED Nasal Influenza B PCR NOT DETECTED Nasal Influenza A PCR NOT DETECTED Nasal Parainfluen 1 PCR NOT DETECTED Nasal Parainfluen 2 PCR NOT DETECTED Nasal Parainfluen 3 PCR NOT DETECTED Nasal Parainfluen 4 PCR NOT DETECTED Nasal RSV (PCR) NOT DETECTED Nasal B.pertussis DNA PCR NOT DETECTED Nasal C.pneumoniae (PCR) NOT DETECTED [place]ale Human Metapneumo PCR NOT DETECTED Nasal M.pneumoniae (PCR) NOT DETECTED Nasal SARS-CoV-2 (PCR) NOT DETECTED PD MEDICAL DECISION MAKING - ED course Complexity details: reviewed results, re-evaluated patient, considered differential, d/w patient ED course: 45-year-old female with postoperative fevers, cellulitis of the abdominal wall and MRSA infection of the drainage from her ZOFIA drain. She is still having fevers despite being on antibiotics at home. Discussed the case with her surgeon, Luisana Bhardwaj who recommends transfer to [facility] for further care. The patient will be transferred there. Started on vancomycin and doxycycline here. COBRA forms completed. This document was made in part using voice recognition software. While efforts are made to proofread this document, sound alike and grammatical errors may occur. Departure - Departure Disposition: 02 Transfer Acute Care Hosp Clinical Impression: Fever Qualifiers: Fever type: unspecified Qualified Code(s): R50.9 - Fever, unspecified Cellulitis Qualifiers: Site of cellulitis: trunk Site of cellulitis of trunk: abdominal wall Qualified Code(s): L03.311 - Cellulitis of abdominal wall Postoperative infection Qualifiers: Encounter type: initial encounter Postoperative infection type: unspecified type Qualified Code(s): T81.40XA - Infection following a procedure, unspecified, initial encounter Condition: Stable
[2020-07-01] MEDS ORDERED: SODIUM CHLORIDE 0.9% 1,000 ML IV STA ×2 (17:00→19:25)
[2020-07-01] MEDS ORDERED: DOXYCYCLINE INJ 100 MG in SODIUM CHLORIDE 0.9% MINIBAG 100 ML IV STA (17:02)
[2020-07-01] MEDS ORDERED: VANCOMYCIN INJ 1 GM in SODIUM CHLORIDE 0.9% 500 ML IV STA (17:02)
[2020-07-01 17:26] LABS: B. PARAPERTUSSIS- RESP PCR PAN NOT DETECTED; B. PERTUSSIS- RESP PCR PANEL NOT DETECTED; C. PNEUMONIAE- RESP PCR PANEL NOT DETECTED; CORONAVIRUS 229E-RESP PCR NOT DETECTED; CORONAVIRUS HKU1-RESP PCR NOT DETECTED; CORONAVIRUS NL63-RESP PCR NOT DETECTED; CORONAVIRUS OC43-RESP PCR NOT DETECTED; HUMAN METAPNEUMOVIRUS NOT DETECTED; INFLUENZA A- RESP PCR PANEL NOT DETECTED; INFLUENZA B - RESP PCR PANEL NOT DETECTED; M. PNEUMONIAE- RESP PCR PANEL NOT DETECTED; PARAINFLUENZA VIRUS 1 NOT DETECTED; PARAINFLUENZA VIRUS 2 NOT DETECTED; PARAINFLUENZA VIRUS 3 NOT DETECTED; PARAINFLUENZA VIRUS 4 NOT DETECTED; RHINOVIRUS/ENTEROVIRUS NOT DETECTED; RSV- RESP PCR PANEL NOT DETECTED; SARS-CoV-2 -RESP PCR PANEL NOT DETECTED
[2020-07-01] MEDS ORDERED: MORPHINE 2 MG/ML CARPUJECT IVP STA (19:25)
[2020-07-01 20:07] VITALS: BP 144/89
== END 2020-07-01 20:24 | disposition short-term general hospital (02) ==
LOC: ED 15:10
DX: T81.49XA Infection following a procedure, other surgical site, initial encounter (principal); B95.62 Methicillin resistant Staphylococcus aureus infection as the cause of diseases classified elsewhere; Y83.8 Other surgical procedures as the cause of abnormal reaction of the patient, or of later complication, without mention of misadventure at the time of the procedure; L03.311 Cellulitis of abdominal wall; Z20.822 Contact with and (suspected) exposure to COVID-19; I10 Essential (primary) hypertension; E11.9 Type 2 diabetes mellitus without complications; Z79.4 Long term (current) use of insulin; E66.01 Morbid (severe) obesity due to excess calories; Z68.44 Body mass index [BMI] 60.0-69.9, adult; Z86.711 Personal history of pulmonary embolism; Z86.718 Personal history of other venous thrombosis and embolism; Z79.01 Long term (current) use of anticoagulants
CPT/HCPCS: 36415; 80053; 83605; 85025; 87040; 87631; 96365; 96366; 96368; 96375; 99284; 99285; J3370; 0202U

== ENCOUNTER 2020-07-01 20:20 | Outpatient (CLI) | payer MEDICARE, MEDICAID | END 2020-07-01 20:21 | disposition short-term general hospital (02) | LOC: EMS 20:20 | PROVIDERS: ATTEND Emergency Medicine | DX: L03.90 Cellulitis, unspecified (principal); T81.9XXA Unspecified complication of procedure, initial encounter | CPT/HCPCS: A0425; A0428 ==

== ENCOUNTER 2020-07-15 10:00 | Outpatient (CLI) | payer MEDICARE, MEDICAID ==
[2020-07-15 19:33] LABS: ALBUMIN 3.2 g/dL (3.2-5.5); ALKALINE PHOSPHATASE 124 IU/L (42-121); ALT ALANINE AMINOTRANSFERASE 15 IU/L (10-60); AST ASPARTATE AMINOTRANSFERASE 16 IU/L (10-42); BILIRUBIN,TOTAL 0.3 mg/dL (0.2-1.0); BUN - BLOOD UREA NITROGEN 11 mg/dL (6-20); CALCIUM 8.4 mg/dL (8.5-10.3); CARBON DIOXIDE - CO2 19 mmol/L (21-32); CHLORIDE 103 mmol/L (101-111); CREATININE 0.8 mg/dL (0.4-1.0); CRP - C-REACTIVE PROTEIN 2.8 mg/dL (0-1.0); GFR - MDRD 78 (>89); GLUCOSE 170 mg/dL (70-100); POTASSIUM 4.1 mmol/L (3.5-5.0); SODIUM 136 mmol/L (135-145); TOTAL PROTEIN 6.3 g/dL (6.7-8.2); VANCOMYCIN,TROUGH 17.4 ug/mL (10.0-20.0)
== END 2020-07-15 23:59 | disposition home or self-care (01) ==
LOC: LAB.R 10:00
PROVIDERS: ATTEND Nurse Practitioner
DX: K65.1 Peritoneal abscess (principal)
CPT/HCPCS: 80053; 80202; 85025; 85651; 86140

== ENCOUNTER 2020-07-19 11:40 | Outpatient (CLI) | payer MEDICARE, MEDICAID ==
[2020-07-19 13:05] LABS: BASOPHILS % (AUTO) 0.3 %; EOSINOPHILS # (AUTO) 0.1 10^3/uL (0.0-0.7); EOSINOPHILS % (AUTO) 1.1 %; HCT - HEMATOCRIT 39.3 % (37.0-47.0); HGB - HEMOGLOBIN 12.6 g/dL (12.0-16.0); LYMPHOCYTES % (AUTO) 15.5 %; MEAN CORPUSCULAR HEMOGLOBIN 29.1 pg (27.0-31.0); MEAN CORPUSCULAR HGB CONC 32.1 g/dL (32.0-36.0); MEAN CORPUSCULAR VOLUME 90.8 fL (81.0-99.0); MEAN PLATELET VOLUME 10.3 fL (7.9-10.8); MONOCYTES # (AUTO) 0.9 10^3/uL (0.0-1.0); MONOCYTES % (AUTO) 13.5 %; NEUTROPHILS # (AUTO) 4.5 10^3/uL (1.5-6.6); NEUTROPHILS % (AUTO) 69.1 %; PLT - PLATELET COUNT 266 10^3/uL (130-450); RED BLOOD COUNT 4.33 10^6/uL (4.20-5.40); RED CELL DISTRIBUTION WIDTH 14.6 % (12.0-15.0); WHITE BLOOD COUNT 6.6 x10^3/uL (4.8-10.8)
[2020-07-19 13:28] LABS: ALBUMIN 3.4 g/dL (3.2-5.5); ALKALINE PHOSPHATASE 149 IU/L (42-121); ALT ALANINE AMINOTRANSFERASE 11 IU/L (10-60); AST ASPARTATE AMINOTRANSFERASE 10 IU/L (10-42); BILIRUBIN,TOTAL 0.6 mg/dL (0.2-1.0); BUN - BLOOD UREA NITROGEN 9 mg/dL (6-20); CALCIUM 8.9 mg/dL (8.5-10.3); CARBON DIOXIDE - CO2 24 mmol/L (21-32); CHLORIDE 96 mmol/L (101-111); CK- CREATINE KINASE 20 IU/L (22-269); CREATININE 0.7 mg/dL (0.4-1.0); GFR - MDRD 91 (>89); GLUCOSE 157 mg/dL (70-100); POTASSIUM 4.2 mmol/L (3.5-5.0); SODIUM 132 mmol/L (135-145); TOTAL PROTEIN 6.7 g/dL (6.7-8.2)
[2020-07-19 17:04] LABS: VANCOMYCIN,TROUGH 15.2 ug/mL (10.0-20.0)
== END 2020-07-19 23:59 | disposition home or self-care (01) ==
LOC: LAB.R 11:40
PROVIDERS: ATTEND Internal Medicine Infectious Disease
DX: K65.1 Peritoneal abscess (principal); T82.9XXA Unspecified complication of cardiac and vascular prosthetic device, implant and graft, initial encounter
CPT/HCPCS: 80053; 80202; 82550; 85025; 85651

== ENCOUNTER 2020-07-24 08:45 | Outpatient (CLI) | payer MEDICARE, MEDICAID ==
[2020-07-24 10:59] LABS: BASOPHILS % (AUTO) 0.7 %; EOSINOPHILS # (AUTO) 0.2 10^3/uL (0.0-0.7); EOSINOPHILS % (AUTO) 6.6 %; HGB - HEMOGLOBIN 12.4 g/dL (12.0-16.0); LYMPHOCYTES # (AUTO) 0.6 10^3/uL (1.5-3.5); LYMPHOCYTES % (AUTO) 19.7 %; MEAN CORPUSCULAR HEMOGLOBIN 29.2 pg (27.0-31.0); MEAN CORPUSCULAR HGB CONC 32.6 g/dL (32.0-36.0); MEAN CORPUSCULAR VOLUME 89.6 fL (81.0-99.0); MEAN PLATELET VOLUME 9.9 fL (7.9-10.8); MONOCYTES # (AUTO) 0.4 10^3/uL (0.0-1.0); MONOCYTES % (AUTO) 15.2 %; NEUTROPHILS # (AUTO) 1.7 10^3/uL (1.5-6.6); NEUTROPHILS % (AUTO) 57.5 %; PLT - PLATELET COUNT 213 10^3/uL (130-450); RED BLOOD COUNT 4.24 10^6/uL (4.20-5.40); RED CELL DISTRIBUTION WIDTH 14.3 % (12.0-15.0); WHITE BLOOD COUNT 2.9 x10^3/uL (4.8-10.8)
[2020-07-24 11:01] LABS: SLIDE REVIEW? Indicated
[2020-07-24 11:14] LABS: ALBUMIN 3.5 g/dL (3.2-5.5); ALBUMIN/GLOBULIN RATIO 1.1 (1.0-2.2); ALKALINE PHOSPHATASE 128 IU/L (42-121); ALT ALANINE AMINOTRANSFERASE 11 IU/L (10-60); AST ASPARTATE AMINOTRANSFERASE 13 IU/L (10-42); BILIRUBIN,TOTAL 0.5 mg/dL (0.2-1.0); BUN - BLOOD UREA NITROGEN 7 mg/dL (6-20); CALCIUM 9.2 mg/dL (8.5-10.3); CARBON DIOXIDE - CO2 27 mmol/L (21-32); CHLORIDE 101 mmol/L (101-111); CREATININE 0.7 mg/dL (0.4-1.0); CRP - C-REACTIVE PROTEIN 4.3 mg/dL (0-1.0); GFR - MDRD 91 (>89); GLUCOSE 200 mg/dL (70-100); POTASSIUM 3.9 mmol/L (3.5-5.0); SODIUM 138 mmol/L (135-145); TOTAL PROTEIN 6.8 g/dL (6.7-8.2); VANCOMYCIN,TROUGH 14.5 ug/mL (10.0-20.0)
[2020-07-24 11:19] LABS: RBC MORPHOLOGY (MULTIPLE) 2+ ANISOCYTOSIS (NORMAL)
== END 2020-07-24 23:59 | disposition home or self-care (01) ==
LOC: LAB.R 08:45
PROVIDERS: ATTEND Internal Medicine Infectious Disease
DX: K65.1 Peritoneal abscess (principal); K43.0 Incisional hernia with obstruction, without gangrene; I11.0 Hypertensive heart disease with heart failure
CPT/HCPCS: 80053; 80202; 85025; 86140

== ENCOUNTER 2020-07-31 08:00 | Outpatient (CLI) | payer MEDICARE, MEDICAID ==
[2020-07-31 12:10] LABS: BILIRUBIN,URINE NEGATIVE (NEGATIVE); GLUCOSE, URINE (UA) 500 mg/dL (NEGATIVE); KETONES,URINE (UA) NEGATIVE (NEGATIVE); LEUKOCYTE ESTERASE, URINE NEGATIVE (NEGATIVE); NITRITE,URINE NEGATIVE (NEGATIVE); OCCULT BLOOD,URINE NEGATIVE (NEGATIVE); PROTEIN,URINE NEGATIVE (NEGATIVE); UROBILINOGEN,URINE 0.2 (NORMAL) E.U./dL (NORMAL)
[2020-07-31 12:17] LABS: CLARITY,URINE CLEAR (CLEAR); RBC,URINE 0-5 /HPF (0-5); SQUAMOUS EPITHELIAL CELL,UR FEW Squamous (<= Few); WBC,URINE 0-3 /HPF (0-5)
[2020-07-31 12:18] LABS: BACTERIA,URINE Rare /HPF (None Seen); MUCUS,URINE Few Strands; YEAST,URINE PRESENT
== END 2020-07-31 23:59 | disposition home or self-care (01) ==
LOC: LAB.WCP 08:00
PROVIDERS: ATTEND Family Medicine
DX: R39.15 Urgency of urination (principal)
CPT/HCPCS: 81001

== ENCOUNTER 2020-08-12 15:57 | Outpatient (CLI) | payer MEDICARE, MEDICAID ==
[2020-08-12 16:59] LABS: BASOPHILS # (AUTO) 0.1 10^3/uL (0.0-0.1); EOSINOPHILS # (AUTO) 0.1 10^3/uL (0.0-0.7); EOSINOPHILS % (AUTO) 1.9 %; HCT - HEMATOCRIT 45.5 % (37.0-47.0); HGB - HEMOGLOBIN 15.2 g/dL (12.0-16.0); LYMPHOCYTES # (AUTO) 1.9 10^3/uL (1.5-3.5); LYMPHOCYTES % (AUTO) 30.1 %; MEAN CORPUSCULAR HEMOGLOBIN 29.1 pg (27.0-31.0); MEAN CORPUSCULAR HGB CONC 33.4 g/dL (32.0-36.0); MEAN PLATELET VOLUME 9.6 fL (7.9-10.8); MONOCYTES # (AUTO) 0.5 10^3/uL (0.0-1.0); MONOCYTES % (AUTO) 8.2 %; NEUTROPHILS # (AUTO) 3.7 10^3/uL (1.5-6.6); NEUTROPHILS % (AUTO) 58.5 %; PLT - PLATELET COUNT 202 10^3/uL (130-450); RED BLOOD COUNT 5.23 10^6/uL (4.20-5.40); RED CELL DISTRIBUTION WIDTH 15.2 % (12.0-15.0); WHITE BLOOD COUNT 6.3 x10^3/uL (4.8-10.8)
[2020-08-12 18:02] LABS: ALBUMIN 3.6 g/dL (3.2-5.5); ALBUMIN/GLOBULIN RATIO 1.1 (1.0-2.2); ALKALINE PHOSPHATASE 102 IU/L (42-121); ALT ALANINE AMINOTRANSFERASE 13 IU/L (10-60); AST ASPARTATE AMINOTRANSFERASE 16 IU/L (10-42); BILIRUBIN,TOTAL 0.7 mg/dL (0.2-1.0); BUN - BLOOD UREA NITROGEN 12 mg/dL (6-20); CARBON DIOXIDE - CO2 21 mmol/L (21-32); CHLORIDE 103 mmol/L (101-111); CREATININE 0.7 mg/dL (0.4-1.0); GFR - MDRD 91 (>89); GLUCOSE 136 mg/dL (70-100); POTASSIUM 4.1 mmol/L (3.5-5.0); SODIUM 138 mmol/L (135-145)
[2020-08-12 19:26] LABS: CRP - C-REACTIVE PROTEIN < 1.0 mg/dL (0-1.0)
== END 2020-08-12 15:58 | disposition home or self-care (01) ==
LOC: LAB 15:57
PROVIDERS: ATTEND Family Medicine
DX: L08.9 Local infection of the skin and subcutaneous tissue, unspecified (principal); A49.02 Methicillin resistant Staphylococcus aureus infection, unspecified site; D68.9 Coagulation defect, unspecified
CPT/HCPCS: 36415; 80053; 81599; 85025; 85307; 85651; 86140

== ENCOUNTER 2020-08-30 11:47 | Outpatient (CLI) | payer MEDICARE, MEDICAID ==
[2020-08-30 12:21] LABS: BASOPHILS % (AUTO) 0.7 %; EOSINOPHILS # (AUTO) 0.1 10^3/uL (0.0-0.7); EOSINOPHILS % (AUTO) 1.8 %; HCT - HEMATOCRIT 42.1 % (37.0-47.0); HGB - HEMOGLOBIN 14.1 g/dL (12.0-16.0); LYMPHOCYTES # (AUTO) 1.7 10^3/uL (1.5-3.5); LYMPHOCYTES % (AUTO) 29.6 %; MEAN CORPUSCULAR HEMOGLOBIN 29.7 pg (27.0-31.0); MEAN CORPUSCULAR HGB CONC 33.5 g/dL (32.0-36.0); MEAN CORPUSCULAR VOLUME 88.6 fL (81.0-99.0); MEAN PLATELET VOLUME 9.2 fL (7.9-10.8); MONOCYTES # (AUTO) 0.4 10^3/uL (0.0-1.0); MONOCYTES % (AUTO) 7.4 %; NEUTROPHILS # (AUTO) 3.4 10^3/uL (1.5-6.6); NEUTROPHILS % (AUTO) 60.3 %; PLT - PLATELET COUNT 241 10^3/uL (130-450); RED BLOOD COUNT 4.75 10^6/uL (4.20-5.40); RED CELL DISTRIBUTION WIDTH 15.8 % (12.0-15.0); WHITE BLOOD COUNT 5.7 x10^3/uL (4.8-10.8)
[2020-08-30 12:39] LABS: BUN - BLOOD UREA NITROGEN 13 mg/dL (6-20); CALCIUM 8.2 mg/dL (8.5-10.3); CARBON DIOXIDE - CO2 23 mmol/L (21-32); CHLORIDE 103 mmol/L (101-111); CREATININE 0.7 mg/dL (0.4-1.0); GFR - MDRD 91 (>89); GLUCOSE 168 mg/dL (70-100); POTASSIUM 4.2 mmol/L (3.5-5.0); SODIUM 136 mmol/L (135-145)
[2020-08-30 12:43] LABS: CRP - C-REACTIVE PROTEIN < 1.0 mg/dL (0-1.0)
== END 2020-08-30 11:48 | disposition home or self-care (01) ==
LOC: LAB 11:47
PROVIDERS: ATTEND Surgery
DX: T81.43XA Infection following a procedure, organ and space surgical site, initial encounter (principal)
CPT/HCPCS: 36415; 80048; 85025; 85651; 86140

== ENCOUNTER 2020-12-19 14:38 | Outpatient (CLI) | payer MEDICARE, MEDICAID ==
--- NOTE | 2020-12-19 18:10 | XRAY Report ---
PROCEDURE: Ankle 3 View LT INDICATIONS: LEFT ANKLE PAIN TECHNIQUE: 3 views of the ankle were acquired. COMPARISON: None. FINDINGS: Bones: No fractures or dislocations. Ankle mortise is normally aligned. Exostosis in distal tibia and fibula. No suspicious bony lesions. Degenerative joint disease in hindfoot. Calcaneal spurring. Soft tissues: No tibiotalar joint effusion. Achilles tendon appears normal. IMPRESSION: 1. No acute osseous abnormalities. If clinical symptoms persist or clinical suspicion for internal de rangement is high, MRI is recommended for follow-up evaluation. 2. Degenerative joint disease. 3. Calcaneal spurring. Reviewed by: Dorys Wang MD on 12/19/2020 6:08 PM PDT Approved by: Dorys Wang MD on 12/19/2020 6:08 PM PDT Station ID: [id number]
== END 2020-12-19 14:40 ==
LOC: DI.N 14:38
PROVIDERS: ATTEND Nurse Practitioner
DX: S93.402A Sprain of unspecified ligament of left ankle, initial encounter (principal); M19.072 Primary osteoarthritis, left ankle and foot; M77.32 Calcaneal spur, left foot

== ENCOUNTER 2020-12-24 15:32 | Emergency (ER) | payer MEDICARE, MEDICAID ==
[2020-12-24 16:20] LABS: BASOPHILS % (AUTO) 0.6 %; EOSINOPHILS # (AUTO) 0.2 10^3/uL (0.0-0.7); EOSINOPHILS % (AUTO) 3.1 %; HCT - HEMATOCRIT 43.9 % (37.0-47.0); HGB - HEMOGLOBIN 14.3 g/dL (12.0-16.0); LYMPHOCYTES % (AUTO) 39.5 %; MEAN CORPUSCULAR HEMOGLOBIN 30.5 pg (27.0-31.0); MEAN CORPUSCULAR HGB CONC 32.6 g/dL (32.0-36.0); MEAN CORPUSCULAR VOLUME 93.6 fL (81.0-99.0); MEAN PLATELET VOLUME 10.1 fL (7.9-10.8); MONOCYTES # (AUTO) 0.4 10^3/uL (0.0-1.0); MONOCYTES % (AUTO) 8.4 %; NEUTROPHILS # (AUTO) 2.5 10^3/uL (1.5-6.6); NEUTROPHILS % (AUTO) 48.2 %; PLT - PLATELET COUNT 231 10^3/uL (130-450); RED BLOOD COUNT 4.69 10^6/uL (4.20-5.40); RED CELL DISTRIBUTION WIDTH 14.6 % (12.0-15.0); WHITE BLOOD COUNT 5.1 x10^3/uL (4.8-10.8)
[2020-12-24 16:51] LABS: ALBUMIN 4.1 g/dL (3.2-5.5); ALBUMIN/GLOBULIN RATIO 1.3 (1.0-2.2); BILIRUBIN,TOTAL 0.8 mg/dL (0.2-1.0); CALCIUM 8.9 mg/dL (8.5-10.3); CREATININE 0.9 mg/dL (0.4-1.0); TOTAL PROTEIN 7.2 g/dL (6.7-8.2)
[2020-12-24 19:19] LABS: BILIRUBIN,URINE NEGATIVE (NEGATIVE); GLUCOSE, URINE (UA) 250 mg/dL (NEGATIVE); KETONES,URINE (UA) NEGATIVE (NEGATIVE); LEUKOCYTE ESTERASE, URINE NEGATIVE (NEGATIVE); NITRITE,URINE NEGATIVE (NEGATIVE); OCCULT BLOOD,URINE NEGATIVE (NEGATIVE); PROTEIN,URINE NEGATIVE (NEGATIVE); UROBILINOGEN,URINE 0.2 (NORMAL) E.U./dL (NORMAL)
[2020-12-24 19:24] LABS: CLARITY,URINE CLEAR (CLEAR)
[2020-12-24] MEDS ORDERED: IOVERSOL 320 50 ML VIAL ONE (19:56)
[2020-12-24] MEDS ORDERED: IOPAMIDOL-300 100 ML VIAL ONE (19:56)
[2020-12-24] MEDS ORDERED: PROMETHAZINE INJ 25 MG in SODIUM CHLORIDE 0.9% 50 ML IV STA (20:48)
[2020-12-24] MEDS ORDERED: PROMETHAZINE 25 MG/1 ML VIAL ONE (20:56)
[2020-12-24] MEDS ORDERED: IOPAMIDOL-300 100 ML VIAL IVP ONE (21:18)
[2020-12-24] MEDS ORDERED: IOVERSOL 320 50 ML VIAL PO ONE (21:18)
--- NOTE | 2020-12-24 21:48 | CT Report ---
PROCEDURE: Abdomen/Pelvis W INDICATIONS: diffuse abd pain CONTRAST: IV CONTRAST: Isovue 300 ml: 100 PO CONTRAST: Optiray 320 ml50 TECHNIQUE: After the administration of intravenous and oral contrast, 5 mm thick sections acquired from the diap hragms to the symphysis. 5 mm thick coronal and sagittal reformats were acquired. For radiation dos e reduction, the following was used: automated exposure control, adjustment of mA and/or kV accordin g to patient size. COMPARISON: CT abdomen pelvis 03/08/2020, CT abdomen pelvis 11/01/2017. FINDINGS: Image quality: There is streak artifact and beam hardening artifact limiting evaluation. ABDOMEN: Lung bases: There is atelectasis and scarring the lung bases. Heart size is normal. Solid organs: There is a small oval nonspecific hypodensity in the right hepatic lobe measuring up t o 1.4 cm which appears unchanged compared to the prior studies. The gallbladder is surgically absent. There is mild biliary ductal dilatation which appears similar to the prior study and likely represen t sequelae of prior cholecystectomy. Pancreas enhances normally. No adrenal nodules. The spleen is normal in size. There is an oval cystic lesion within spleen measuring up to 1.9 cm which appears unc hanged from prior studies. Kidneys demonstrate no hydronephrosis. Peritoneum and bowel: Bowel loops demonstrate normal wall thickness and caliber. There are scattered air-fluid levels within nondistended small and large bowel loops suggestive of a gastroenteritis. Th e appendix is not discretely well visualized but there are no pericecal inflammatory changes to sugge st appendicitis. There are a few colonic diverticula without acute diverticulitis. No free fluid or a ir. Nodes and vessels: No retroperitoneal or mesenteric adenopathy by size criteria. Aorta and inferior vena cava are normal in size. Miscellaneous: No ventral hernias. There is scarring within the ventral abdominal wall. PELVIS: Genitourinary: Bladder wall thickness is normal. Miscellaneous: No inguinal hernias or adenopathy. Bones: No suspicious bony lesions. No vertebral body compression fractures. IMPRESSION: 1. Scattered air-fluid levels throughout the small and large bowel without abnormal distention or foc al transition point. The findings likely represent a gastroenteritis. 2. Mild biliary ductal dilatation appears similar to the prior study and likely represents sequelae o f prior cholecystectomy. Reviewed by: Eladio Kirby MD on 12/24/2020 9:47 PM PDT Approved by: Eladio Kirby MD on 12/24/2020 9:47 PM PDT Station ID: [id number]
--- NOTE | 2020-12-24 21:58 | ED Physician Documentation ---
PD HPI ABD PAIN - Stated complaint Stated Complaint: ABD PX/SWELLING - Chief complaint Chief Complaint: Abd Pain - History obtained from History obtained from: Patient - History of Present Illness Timing - onset: Yesterday Timing - duration: Days (2) Timing - details: Gradual onset Pain level max: 4 Pain level now: 4 Quality: Aching, Pain. No: Cramping Location: No: All over / everywhere Associated symptoms: No: Fever, Nausea, Vomiting, Hematemesis, Diarrhea, Constipation, Melena, Hematochezia - Additional information Additional information: Patient is a 45-year-old female complains of epigastric pain for the past 2 days. She states that this started after lifting heavy objects at home. She has a history of a ventral hernia that was repaired at the [facility] about 4 months ago. She states that she had an MRSA infection after that. She is concerned that she may have another infection. Pain is worse with movement and better with rest. No nausea, vomiting, diarrhea or constipation. She was seen at the walk-in clinic today and sent here for further evaluation. Review of Systems Constitutional: denies: Fever, Chills Respiratory: denies: Cough GI: denies: Vomiting, Diarrhea PD PAST MEDICAL HISTORY - Past Medical History Cardiovascular: Hypertension, High cholesterol, Deep vein thrombosis, Pulmonary embolism Respiratory: Sleep apnea Neuro: None Endocrine/Autoimmune: Type 2 diabetes GI: Other : Renal insuffiency HEENT: None Psych: Depression, Anxiety, Bipolar disorder, Schizophrenia, Other Musculoskeletal: Osteoarthritis Derm: None - Past Surgical History Past Surgical History: Yes General: Cholecystectomy, Other - Present Medications Home Medications: Ambulatory Orders Medication Instructions Recorded Confirmed Gabapentin 200 mg PO BID 09/28/16 12/24/20 Metformin HCl 1,000 mg PO BID 09/28/16 12/24/20 Rivaroxaban [Xarelto] 10 mg PO DAILY PM 09/28/16 12/24/20 Rosuvastatin Calcium [Crestor] 40 mg PO DAILY 09/28/16 12/24/20 lamoTRIgine [LaMICtal] 200 mg PO DAILY 09/28/16 12/24/20 lisinopriL [Lisinopril] 2.5 mg PO DAILY 09/28/16 12/24/20 raNITIdine [Zantac] 150 mg PO BID 09/28/16 12/24/20 Prazosin [Minipress] 5 mg PO QPM PRN 02/12/17 12/24/20 Ziprasidone HCl [Geodon] 80 mg PO BID 07/30/17 12/24/20 Acetaminophen [Tylenol Extra 500 mg PO PRN PRN 10/19/17 12/24/20 Strength] Multivitamin [Multiple Vitamins] 1 tab PO DAILY 10/19/17 11/22/20 Insulin Aspart [NovoLOG] 14 unit SUBQ ACHS 02/08/18 12/24/20 Insulin Detemir [Levemir Flextouch] 60 units SUBQ BID 02/08/18 12/24/20 - Allergies Allergies/Adverse Reactions: Allergies Allergy/AdvReac Type Severity Reaction Status Date / Time bupropion HCl * Allergy Rash Verified 12/24/20 15:51 [From Wellbutrin] cephalexin monohydrate * Allergy Rash Verified 12/24/20 15:51 [From Keflex] codeine Allergy Rash Verified 12/24/20 15:51 fluoxetine HCl * Allergy Anaphylaxis Verified 12/24/20 15:51 [From Prozac] lithium Allergy Rash Verified 12/24/20 15:51 Penicillins Allergy Rash Verified 12/24/20 15:51 phenytoin sodium * Allergy Rash Verified 12/24/20 15:51 [From Dilantin] phenytoin sodium extended * Allergy Rash Verified 12/24/20 15:51 [From Dilantin] - Social History Does the pt smoke?: No Smoking Status: Never smoker Does the pt drink ETOH?: Yes Does the pt have substance abuse?: No - Immunizations Immunizations are current?: Yes - POLST Patient has POLST: No PD ED PE NORMAL - Vitals Vital signs reviewed: Yes - General General: Alert and oriented X 3, No acute distress - HEENT HEENT: Moist mucous membranes - Neck Neck: Supple, no meningeal sign - Cardiac Cardiac: RRR, Strong equal pulses - Respiratory Respiratory: No respiratory distress, Clear bilaterally - Abdomen Abdomen: Soft, Non distended, Other (Mild tenderness to palpation epigastric without peritoneal signs, normal skin) - Back Back: No spinal TTP - Derm Derm: Warm and dry - Neuro Neuro: Alert and oriented X 3 - Psych Psych: Normal mood, Normal affect Results - Vitals Vitals: Vital Signs - 24 hr 12/24/20 22:21 Temperature 36.9 C Heart Rate 82 Respiratory 18 Rate Blood Pressure 110/69 O2 Saturation 98 Oxygen O2 Source Room air - Labs Labs: Laboratory Tests 12/24/20 12/24/20 12/24/20 16:10 16:10 19:15 WBC 5.1 RBC 4.69 Hgb 14.3 Hct 43.9 MCV 93.6 MCH 30.5 MCHC 32.6 RDW 14.6 Plt Count 231 MPV 10.1 Neut # (Auto) 2.5 Lymph # (Auto) 2.0 Benzie # (Auto) 0.4 Eos # (Auto) 0.2 Baso # (Auto) 0.0 Absolute Nucleated RBC 0.00 Nucleated RBC % 0.0 Sodium 136 Potassium 4.0 Chloride 102 Carbon Dioxide 20 L Anion Gap 14.0 H BUN 12 Creatinine 0.9 Estimated GFR (MDRD) 68 L Glucose 128 H Calcium 8.9 Total Bilirubin 0.8 AST 15 ALT 13 Alkaline Phosphatase 87 Total Protein 7.2 Albumin 4.1 Globulin 3.1 Albumin/Globulin Ratio 1.3 Lipase 18 L Urine Color YELLOW Urine Clarity CLEAR Urine pH 5.0 Ur Specific [place] 1.020 Urine Protein NEGATIVE Urine Glucose (UA) 250 H Urine Ketones NEGATIVE Urine Occult Blood NEGATIVE Urine Nitrite NEGATIVE Urine Bilirubin NEGATIVE Urine Urobilinogen 0.2 (NORMAL) Ur Leukocyte Esterase NEGATIVE Ur Microscopic Review NOT INDICATED Urine Culture Comments NOT INDICATED - Rads (name of study) Ct abd.pelvis Radiology: Final report received, EMP read contemporaneously, See rad report PD MEDICAL DECISION MAKING - ED course Complexity details: reviewed results, re-evaluated patient, considered differential, d/w patient ED course: No acute findings on CT of the abdomen pelvis. No evidence of infection or infected graft. No evidence of recurrent hernia. Likely related to an abdom inal wall strain from lifting her filing cabinet. We will continue supportive care and have her follow-up with her doctor for further care. Patient counseled regarding signs and symptoms for which I believe and urgent re-evaluation would be necessary. Patient with good understanding of and agreement to plan and is comfortable going home at this time This document was made in part using voice recognition software. While efforts are made to proofread this document, sound alike and grammatical errors may occur. Departure - Departure Disposition: 01 Home, Self Care Clinical Impression: Abdominal pain Qualifiers: Abdominal location: epigastric Qualified Code(s): R10.13 - Epigastric pain Condition: Good Instructions: ED Abdominal Pain Unkn Cause Follow-Up: Steve Marie MD [Primary Care Provider] - Within 1 week Comments: Your testing does not show any acute abnormalities today. Please follow-up with your doctor for further care. Return if you worsen. Discharge Date/Time: 12/24/20 22:47
[2020-12-24] MEDS ORDERED: KETOROLAC 30 MG/ML VIAL IVP STA (22:05)
[2020-12-24 22:23] VITALS: BP 110/69
== END 2020-12-24 22:47 | disposition home or self-care (01) ==
LOC: ED 15:32
DX: R10.13 Epigastric pain (principal); Z86.711 Personal history of pulmonary embolism; Z79.01 Long term (current) use of anticoagulants; E11.22 Type 2 diabetes mellitus with diabetic chronic kidney disease; I12.9 Hypertensive chronic kidney disease with stage 1 through stage 4 chronic kidney disease, or unspecified chronic kidney disease; N18.9 Chronic kidney disease, unspecified; Z79.84 Long term (current) use of oral hypoglycemic drugs
CPT/HCPCS: 36415; 74177; 80053; 81003; 83690; 85025; 96365; 96375; 99284; J7040; Q9967; 81001; 87086

== ENCOUNTER 2021-01-20 10:01 | Outpatient (CLI) | payer MEDICARE, MEDICAID ==
[2021-01-20 11:40] LABS: BASOPHILS % (AUTO) 0.7 %; EOSINOPHILS # (AUTO) 0.2 10^3/uL (0.0-0.7); EOSINOPHILS % (AUTO) 2.8 %; HCT - HEMATOCRIT 42.3 % (37.0-47.0); HGB - HEMOGLOBIN 13.9 g/dL (12.0-16.0); LYMPHOCYTES # (AUTO) 1.7 10^3/uL (1.5-3.5); LYMPHOCYTES % (AUTO) 29.6 %; MEAN CORPUSCULAR HEMOGLOBIN 30.6 pg (27.0-31.0); MEAN CORPUSCULAR HGB CONC 32.9 g/dL (32.0-36.0); MEAN CORPUSCULAR VOLUME 93.2 fL (81.0-99.0); MEAN PLATELET VOLUME 10.5 fL (7.9-10.8); MONOCYTES # (AUTO) 0.5 10^3/uL (0.0-1.0); MONOCYTES % (AUTO) 8.3 %; NEUTROPHILS # (AUTO) 3.4 10^3/uL (1.5-6.6); NEUTROPHILS % (AUTO) 58.4 %; PLT - PLATELET COUNT 259 10^3/uL (130-450); RED BLOOD COUNT 4.54 10^6/uL (4.20-5.40); RED CELL DISTRIBUTION WIDTH 13.8 % (12.0-15.0); WHITE BLOOD COUNT 5.8 x10^3/uL (4.8-10.8)
[2021-01-20 12:03] LABS: BUN - BLOOD UREA NITROGEN 8 mg/dL (6-20); CALCIUM 8.9 mg/dL (8.5-10.3); CARBON DIOXIDE - CO2 26 mmol/L (21-32); CHLORIDE 101 mmol/L (101-111); CHOL/HDL RATIO 2.7 (<4.4); CHOLESTEROL 110 mg/dL; CREATININE 0.8 mg/dL (0.4-1.0); GFR - MDRD 78 (>89); GLUCOSE 115 mg/dL (70-100); HDL CHOLESTEROL 41 mg/dL; LDL CHOLESTEROL,CALCULATED 27 mg/dL; LDL/HDL RATIO 0.7 (<4.4); SODIUM 137 mmol/L (135-145); TRIGLYCERIDES 211 mg/dL; VLDL CHOLESTEROL 42 mg/dL
[2021-01-20 12:10] LABS: ESTIMATED AVERAGE GLUCOSE 148 mg/dL (70-100); HEMOGLOBIN A1c% 6.8 % (4.27-6.07)
[2021-01-20 12:26] LABS: CREATININE,URINE 97.6 mg/dL
[2021-01-20 12:31] LABS: MICROALBUMIN,URINE < 0.2 mg/dL (0-300.0)
== END 2021-01-20 23:59 | disposition home or self-care (01) ==
LOC: LAB.WCP 10:01
PROVIDERS: ATTEND Family Medicine
DX: I10 Essential (primary) hypertension (principal); F31.9 Bipolar disorder, unspecified; E11.22 Type 2 diabetes mellitus with diabetic chronic kidney disease; Z68.44 Body mass index [BMI] 60.0-69.9, adult
CPT/HCPCS: 36415; 80048; 80061; 82043; 82570; 83036; 83721; 85025

== ENCOUNTER 2021-02-03 06:25 | Day surgery (SDC) | payer MEDICARE, MEDICAID ==
[2021-02-03] MEDS ORDERED: LACTATED RINGERS 1,000 ML IV ONE (06:31)
[2021-02-03 06:50] LABS: HCG UR QUAL NEGATIVE
--- NOTE | 2021-02-03 07:14 | ANESTHESIA ---
Pre-Anesthesia VS, & Labs - Diagnosis abdominal distention - Procedure EGD w/biopsies Vital Signs: Temp Pulse Resp BP Pulse Ox 36.1 C L 78 16 151/92 H 95 02/03/21 06:47 02/03/21 06:47 02/03/21 06:47 02/03/21 06:47 02/03/21 06:47 Height: 5 ft 1 in Weight (kg): 137 kg Body Mass Index: 57.0 BMI Classification: Morbidly Obese - NPO >8 hours - Is Patient ?: No - Lab Results Lab results reviewed: Yes Home Medications and Allergies Home Medications: Ambulatory Orders Canagliflozin [Invokana] 100 mg PO DAILY 01/30/[address] [Voltaren] 75 mg PO BIDWM 01/30/21 Fluticasone 44 Mcg [Flovent] 1 puffs INH BID PRN 01/30/21 [place] ER [Lithobid] 300 mg PO QD 01/30/21 Lorazepam [Ativan] 4 mg PO QPM 01/30/21 OLANZapine [Zyprexa] 20 mg PO DAILY 01/30/21 Semaglutide [Ozempic] 1 mg SQ OAW 01/30/21 Trazodone HCl 50 - 100 mg PO QPM 01/30/21 allopurinoL [Allopurinol] 300 mg PO DAILY 01/30/21 tiZANidine [Zanaflex] 4 mg PO Q8H 01/30/21 Ondansetron [Zuplenz] 1 ea PO PRN PRN 02/03/21 Gabapentin 600 mg PO BID 09/28/16 Rivaroxaban [Xarelto] 10 mg PO DAILY PM 09/28/16 Rosuvastatin Calcium [Crestor] 40 mg PO DAILY 09/28/16 lamoTRIgine [LaMICtal] 300 mg PO DAILY 09/28/16 lisinopriL [Lisinopril] 2.5 mg PO DAILY 09/28/16 Prazosin [Minipress] 10 mg PO QPM PRN 02/12/17 Acetaminophen [Tylenol Extra Strength] 500 mg PO PRN PRN 10/19/17 Insulin Aspart [NovoLOG] 14 unit SUBQ ACHS 02/08/18 Insulin Detemir [Levemir Flextouch] 15 units SUBQ DAILY 02/08/18 Canagliflozin [Invokana] 100 mg PO DAILY 01/30/[address] [Voltaren] 75 mg PO BIDWM 01/30/21 Fluticasone 44 Mcg [Flovent] 1 puffs INH BID PRN 01/30/21 [place] ER [Lithobid] 300 mg PO QD 01/30/21 Lorazepam [Ativan] 4 mg PO QPM 01/30/21 OLANZapine [Zyprexa] 20 mg PO DAILY 01/30/21 Semaglutide [Ozempic] 1 mg SQ OAW 01/30/21 Trazodone HCl 50 - 100 mg PO QPM 01/30/21 allopurinoL [Allopurinol] 300 mg PO DAILY 01/30/21 tiZANidine [Zanaflex] 4 mg PO Q8H 01/30/21 Ondansetron [Zuplenz] 1 ea PO PRN PRN 02/03/21 Allergies/Adverse Reactions: Allergies Allergy/AdvReac Type Severity Reaction Status Date / Time bupropion HCl * Allergy Rash Verified 12/24/20 15:51 [From Wellbutrin] cephalexin monohydrate * Allergy Rash Verified 12/24/20 15:51 [From Keflex] codeine Allergy Rash Verified 12/24/20 15:51 fluoxetine HCl * Allergy Anaphylaxis Verified 12/24/20 15:51 [From Prozac] Penicillins Allergy Rash Verified 12/24/20 15:51 phenytoin sodium * Allergy Rash Verified 12/24/20 15:51 [From Dilantin] phenytoin sodium extended * Allergy Rash Verified 12/24/20 15:51 [From Dilantin] Anes History & Medical History - Anesthetic History Anesthesia Complications: reports: No previous complications Family history of Anesthesia Complications: Denies Family history of Malignant Hyperthermia: Denies - Medical History Cardiovascular: reports: Hypertension, High cholesterol, Deep vein thrombosis, Pulmonary embolism, Arrhythmia Pulmonary: reports: Asthma, COPD, Sleep apnea Gastrointestinal: reports: GERD, Chronic diarrhea, Other Urinary: reports: Chronic bladder infection, Renal insuffiency Neuro: reports: None Musculoskeletal: reports: Osteoarthritis, Gout Endocrine/Autoimmune: reports: Type 2 diabetes Blood Disorders: reports: None Skin: reports: Eczema, Rosacea Smoking Status: Never smoker History of Cancer?: No - Surgical History General: reports: Cholecystectomy, Other Cardiothoracic: reports: Other Exam General: Alert, Oriented x3, Cooperative Dental: Dentures full Upper (out), Dentures full Lower (out) Mouth Openin Fingerbreadth Neck Mobility: Normal Mallampati classification: II Thyromental Distance: 4-6 cm Respiratory: Lungs clear, Normal breath sounds, No respiratory distress, Decreased breath sounds Cardiovascular: Regular rate Neurological: Normal speech Mental/Cognitive Status: Alert/Oriented X3, Normal for patient Cognitive Status: Within normal limits Plan Anesthesia Type: Total IV Consent for Procedure(s) Verified and Reviewed: Yes Code Status: Attempt Resuscitation ASA classification: 3-Severe systemic disease Is this case an emergency?: No
[2021-02-03] MEDS ORDERED: KETAMINE 500 MG/10 ML VIAL ONE (07:18)
[2021-02-03] MEDS ORDERED: MIDAZOLAM 2 MG/2 ML VIAL ONE (07:18)
[2021-02-03] MEDS ORDERED: PROPOFOL 200 MG/20 ML VIAL IVP ONE ×2 (07:19→08:28)
[2021-02-03] MEDS ORDERED: LIDOCAINE-MPF 2% 5 ML VIAL ONE (07:30)
[2021-02-03] MEDS ORDERED: LIDOCAINE 1% 50 ML MDV ONE (08:08)
[2021-02-03] MEDS ORDERED: LACTATED RINGERS 800 ML IV ONE (08:36)
[2021-02-03 09:07] VITALS: BP 124/76
--- NOTE | 2021-02-03 09:42 | ANESTHESIA POST OP EVALUATION ---
Anesthesia Post Eval - Post Anesthesia Eval Vitals: Last Vital Signs Temp 36.6 C 02/03/21 09:05 Pulse 83 02/03/21 09:05 Resp 22 02/03/21 09:05 BP 124/76 02/03/21 09:05 Pulse Ox 95 02/03/21 09:05 CV Function Including HR & BP: Stable Pain Control: Satisfactory Nausea & Vomiting: Negative Mental Status: Baseline Respiratory Status: Airway Patent Hydration Status: Satisfactory Anesthesia Complications: None
== END 2021-02-03 06:26 | disposition home or self-care (01) ==
LOC: SDS 06:25
PROVIDERS: ATTEND Surgery
PROC: 0DB68ZX Excision of Stomach, Via Natural or Artificial Opening Endoscopic, Diagnostic (ICD-10-PCS; 2021-02-03)
PROC: 0DB48ZX Excision of Esophagogastric Junction, Via Natural or Artificial Opening Endoscopic, Diagnostic (ICD-10-PCS; 2021-02-03)
PROC: 0DB38ZX Excision of Lower Esophagus, Via Natural or Artificial Opening Endoscopic, Diagnostic (ICD-10-PCS; 2021-02-03)
PROC: 0DB18ZX Excision of Upper Esophagus, Via Natural or Artificial Opening Endoscopic, Diagnostic (ICD-10-PCS; 2021-02-03)
PROC: 0DB28ZX Excision of Middle Esophagus, Via Natural or Artificial Opening Endoscopic, Diagnostic (ICD-10-PCS; 2021-02-03)
PROC: 0DB98ZX Excision of Duodenum, Via Natural or Artificial Opening Endoscopic, Diagnostic (ICD-10-PCS; principal; 2021-02-03 07:30)
DX: K31.89 Other diseases of stomach and duodenum (principal); R11.10 Vomiting, unspecified; K44.9 Diaphragmatic hernia without obstruction or gangrene; E11.43 Type 2 diabetes mellitus with diabetic autonomic (poly)neuropathy; K31.84 Gastroparesis; Z79.4 Long term (current) use of insulin; E66.01 Morbid (severe) obesity due to excess calories; Z68.43 Body mass index [BMI] 50.0-59.9, adult; J44.9 Chronic obstructive pulmonary disease, unspecified; D68.9 Coagulation defect, unspecified
CPT/HCPCS: 43239; 81025; J7120

== ENCOUNTER 2021-03-03 15:52 | Outpatient (CLI) | payer MEDICARE, MEDICAID ==
--- NOTE | 2021-03-03 16:27 | XRAY Report ---
PROCEDURE: Finger(s) RT INDICATIONS: Right THUMB PAIN TECHNIQUE: AP hand, 2 views of the first finger(s) acquired. COMPARISON: None. FINDINGS: BONES: No acute, displaced fracture or dislocation. Moderate arthrosis of the first carpometacarpal a rticulation with osteophytosis and joint space loss. Osteophytosis about the first interphalangeal spencer int. SOFT TISSUES: No focal abnormality. IMPRESSION: 1.No acute osseous abnormality. Reviewed by: Deric Dick MD on 03/03/2021 4:26 PM PST Approved by: Deric Dick MD on 03/03/2021 4:26 PM [facility] Station ID: [id number]
== END 2021-03-03 23:59 | disposition home or self-care (01) ==
LOC: DI.N 15:52
PROVIDERS: ATTEND Nurse Practitioner
DX: M79.644 Pain in right finger(s) (principal)

== ENCOUNTER 2021-03-17 08:00 | Outpatient (CLI) | payer MEDICARE, MEDICAID ==
[2021-03-17 13:17] LABS: FOLLICLE STIMULATING HORMONE 2.8 mIU/mL
[2021-03-17 13:18] LABS: LUTEINIZING HORMONE 0.79 mIU/mL
[2021-03-18 08:56] LABS: ESTRADIOL <15 pg/mL; PROGESTERONE <0.5 ng/mL
== END 2021-03-17 23:59 ==
LOC: LAB.WCP 08:00
PROVIDERS: ATTEND Family Medicine
DX: N95.9 Unspecified menopausal and perimenopausal disorder (principal)
CPT/HCPCS: 36415; 82670; 83001; 83002; 84144

== ENCOUNTER 2021-04-17 07:00 | Outpatient (CLI) | payer MEDICARE, MEDICAID ==
[2021-04-17 11:59] LABS: BASOPHILS % (AUTO) 0.7 %; EOSINOPHILS # (AUTO) 0.3 10^3/uL (0.0-0.7); EOSINOPHILS % (AUTO) 5.6 %; HCT - HEMATOCRIT 39.2 % (37.0-47.0); HGB - HEMOGLOBIN 12.8 g/dL (12.0-16.0); LYMPHOCYTES % (AUTO) 32.1 %; MEAN CORPUSCULAR HEMOGLOBIN 29.4 pg (27.0-31.0); MEAN CORPUSCULAR HGB CONC 32.7 g/dL (32.0-36.0); MEAN CORPUSCULAR VOLUME 90.1 fL (81.0-99.0); MEAN PLATELET VOLUME 10.5 fL (7.9-10.8); MONOCYTES # (AUTO) 0.5 10^3/uL (0.0-1.0); MONOCYTES % (AUTO) 8.7 %; NEUTROPHILS # (AUTO) 3.2 10^3/uL (1.5-6.6); NEUTROPHILS % (AUTO) 52.6 %; PLT - PLATELET COUNT 276 10^3/uL (130-450); RED BLOOD COUNT 4.35 10^6/uL (4.20-5.40); RED CELL DISTRIBUTION WIDTH 13.9 % (12.0-15.0); WHITE BLOOD COUNT 6.1 x10^3/uL (4.8-10.8)
[2021-04-17 12:19] LABS: POTASSIUM 3.9 mmol/L (3.5-5.0)
[2021-04-17 14:40] LABS: ESTIMATED AVERAGE GLUCOSE 166 mg/dL (70-100); HEMOGLOBIN A1c% 7.4 % (4.27-6.07)
== END 2021-04-17 23:59 | disposition home or self-care (01) ==
LOC: LAB.WCP 07:00
PROVIDERS: ATTEND Family Medicine
DX: M10.9 Gout, unspecified (principal); F31.9 Bipolar disorder, unspecified; F60.3 Borderline personality disorder; E03.9 Hypothyroidism, unspecified; E11.9 Type 2 diabetes mellitus without complications
CPT/HCPCS: 36415; 80048; 83036; 85025

== ENCOUNTER 2021-05-12 14:41 | Outpatient (CLI) | payer MEDICARE, MEDICAID ==
--- NOTE | 2021-05-12 19:23 | XRAY Report ---
PROCEDURE: Foot 3 View RT, x-ray INDICATIONS: CONTUSION OF R FOOT TECHNIQUE: 3 views of the foot were acquired. COMPARISON: None FINDINGS: Bones: No fractures or dislocations. No suspicious bony lesions. Soft tissues: No tibiotalar joint effusion. Achilles tendon appears normal. IMPRESSION: Unremarkable right foot radiographs Reviewed by: Yaya Marino MD on 05/12/2021 6:22 PM [facility] Approved by: Yaya Marino MD on 05/12/2021 6:22 PM [facility] Station ID: [id number]
== END 2021-05-12 23:59 | disposition home or self-care (01) ==
LOC: DI.N 14:41
PROVIDERS: ATTEND Physician Assistant
DX: S90.31XA Contusion of right foot, initial encounter (principal)

== ENCOUNTER 2021-07-09 13:52 | Outpatient (CLI) | payer MEDICARE, MEDICAID ==
[2021-07-09 18:10] LABS: CREATININE 0.9 mg/dL (0.4-1.0)
[2021-07-09 18:32] LABS: THYROID STIMULATING HORMONE 1.86 uIU/mL (0.34-5.60)
[2021-07-09 18:34] LABS: FREE T4 (FREE THYROXINE) 0.85 ng/dL (0.58-1.64)
[2021-07-09 18:37] LABS: PROLACTIN 7.26 ng/mL
[2021-07-09 18:59] LABS: FOLLICLE STIMULATING HORMONE 8.56 mIU/mL
[2021-07-09 19:16] LABS: CREATININE,URINE 72.8 mg/dL
[2021-07-09 19:17] LABS: MICROALBUMIN,URINE < 0.2 mg/dL (0-300.0)
[2021-07-09 20:44] LABS: ESTIMATED AVERAGE GLUCOSE 212 mg/dL (70-100)
== END 2021-07-09 13:53 | disposition home or self-care (01) ==
LOC: LAB.N 13:52
PROVIDERS: ATTEND Family Medicine
DX: E11.22 Type 2 diabetes mellitus with diabetic chronic kidney disease (principal); N93.9 Abnormal uterine and vaginal bleeding, unspecified
CPT/HCPCS: 36415; 80048; 82043; 82570; 82672; 83001; 83036; 84144; 84146; 84439; 84443

== ENCOUNTER 2021-07-24 08:00 | Outpatient (CLI) | payer MEDICARE, MEDICAID | END 2021-07-24 23:59 | disposition home or self-care (01) | LOC: LAB.R 08:00 | PROVIDERS: ATTEND Physician Assistant Medical | DX: R10.2 Pelvic and perineal pain (principal) | CPT/HCPCS: 87086 ==

== ENCOUNTER 2021-08-11 16:30 | Outpatient (CLI) | payer MEDICARE, MEDICAID ==
--- NOTE | 2021-08-12 14:02 | Ultrasound Report ---
PROCEDURE: Pelvic w/Transvaginal INDICATIONS: PELVIC PAIN TECHNIQUE: Real-time scanning was performed of the pelvic organs, with image documentation. Additional endovagi nal scanning was necessary due to incomplete visualization of the adnexal and endometrial structures by transabdominal scanning. COMPARISON: None. FINDINGS: Limited scanning through the kidneys shows no hydronephrosis. No pathologic free abdominal or pelvic fluid. Uterus: Uterus is normal in size at 6.4 x 3.5 x 4.0 cm. The endometrium measures 3.2 mm in combined thickness. Uterus is retroverted. There is a mid posterior subserosal focus of heterogeneous echoge nicity measuring 7 x 5 x 7 mm. Ovaries: Right ovary measures 2.6 x 1.8 x 2.7, volume 6.5 cc. There is a ill-defined area of isoecho genicity within the right ovary measuring 1.6 x 1.4 cm. Left ovary is not visualized. Other: No free pelvic fluid. IMPRESSION: Questionable small uterine fibroid. Focus of ill-defined echogenicity within the right ovary suggestive of involuting complex cyst. Reviewed by: Kathia Tatum MD on 08/12/2021 1:01 PM [facility] Approved by: Kathia Tatum MD on 08/12/2021 1:01 PM [facility] Station ID: [id number]
== END 2021-08-11 16:31 | disposition home or self-care (01) ==
LOC: DI 16:30
PROVIDERS: ATTEND Physician Assistant Medical
DX: R10.2 Pelvic and perineal pain (principal); R93.89 Abnormal findings on diagnostic imaging of other specified body structures

== ENCOUNTER 2021-09-10 08:33 | Outpatient (CLI) | payer MEDICARE, MEDICAID ==
--- NOTE | 2021-09-10 17:25 | Nuclear Medicine Report ---
PROCEDURE: Gastric Empty Small Bowel INDICATIONS: GASTROPARESIS RADIOPHARMACEUTICAL: 1.0 mCi Tc-99m sulfur colloid in an egg sandwich. TECHNIQUE: A Tc-99m labeled sulfur colloid labeled egg sandwich or oatmeal was served to the patient. Anterior and posterior planar images of the abdomen were obtained at 0 minutes and 30 minutes, then at hourly intervals up to 4 hours. The patient was upright and ambulating during the interval. COMPARISON: None available. FINDINGS: The stomach has normal size, morphology, and position. There is normal emptying of solid gastric con tents from the stomach by visual inspection. No gastroesophageal reflux is visualized. The percentage of tracer retained at specific time points are as follows: Time pointPercent gastric retentionNormal range 30 [id number]%70% or more 1 hour67%30% to 90% 2 hours41%60% or less 3 hours21%30% or less 4 hours10%10% or less IMPRESSION: Normal gastric emptying. Reviewed by: Kathia Tatum MD on 09/10/2021 5:24 PM PDT Approved by: Kathia Tatum MD on 09/10/2021 5:24 PM PDT Station ID: [id number]
== END 2021-09-10 08:34 | disposition home or self-care (01) ==
LOC: DI 08:33
PROVIDERS: ATTEND Physician Assistant Medical
DX: K31.84 Gastroparesis (principal)
CPT/HCPCS: 78265

== ENCOUNTER 2022-01-19 16:20 | Outpatient (CLI) | payer MEDICARE, MEDICAID ==
--- NOTE | 2022-01-20 10:13 | XRAY Report ---
PROCEDURE: Knee Standing AP View Only INDICATIONS: R PROXIMAL FIBULA PX TECHNIQUE: Single views of the right knee. COMPARISON: None. FINDINGS: Bones: No acute fractures or dislocations. No suspicious bony lesions. Moderately severe medial co mpartment joint space loss and prominent medial and lateral marginal spur formation. Soft tissues: No intra-articular or other soft tissue calcification. IMPRESSION: 1. Grossly intact right proximal fibula on the single view. Coronal oriented nondisplaced fracture is not excluded. 2. Moderately severe right knee osteoarthritic change. Reviewed by: Irais Blair MD on 01/20/2022 10:12 AM PDT Approved by: Irais Blair MD on 01/20/2022 10:12 AM PDT Station ID: [id number]
--- NOTE | 2022-01-20 11:01 | XRAY Report ---
PROCEDURE: Foot 3 View RT INDICATIONS: R FOOT PX TECHNIQUE: 3 views of the foot were acquired. COMPARISON: 05/12/2021 FINDINGS: Bones: No fractures or dislocations. Mild dorsal and plantar calcaneal spurs. No suspicious bony les ions. Mild first MTP joint degeneration. Soft tissues: No tibiotalar joint effusion. Achilles tendon appears normal. Moderate diffuse foref oot soft tissue swelling. IMPRESSION: 1. Diffuse forefoot soft tissue swelling without visible fracture. 2. Mild degenerative changes. Reviewed by: Irais Blair MD on 01/20/2022 11:00 AM PDT Approved by: Irais Blair MD on 01/20/2022 11:00 AM PDT Station ID: [id number]
--- NOTE | 2022-01-20 11:06 | XRAY Report ---
PROCEDURE: Ankle 3 View RT INDICATIONS: R ANKLE PX TECHNIQUE: 3 views of the ankle were acquired. COMPARISON: None FINDINGS: Bones: No fractures or dislocations. Ankle mortise is normally aligned. No suspicious bony lesions . Soft tissues: No tibiotalar joint effusion. Achilles tendon appears normal. IMPRESSION: No displaced ankle fracture. Reviewed by: Irais Blair MD on 01/20/2022 11:04 AM PDT Approved by: Irais Blair MD on 01/20/2022 11:04 AM PDT Station ID: [id number]
== END 2022-01-19 23:59 | disposition home or self-care (01) ==
LOC: DI.N 16:20
PROVIDERS: ATTEND Registered Nurse
DX: M25.571 Pain in right ankle and joints of right foot (principal); M19.071 Primary osteoarthritis, right ankle and foot; M17.11 Unilateral primary osteoarthritis, right knee

== ENCOUNTER 2022-02-13 09:49 | Outpatient (CLI) | payer MEDICARE, MEDICAID ==
[2022-02-13 12:56] LABS: BASOPHILS % (AUTO) 0.6 %; EOSINOPHILS # (AUTO) 0.1 10^3/uL (0.0-0.7); EOSINOPHILS % (AUTO) 1.9 %; HCT - HEMATOCRIT 40.8 % (37.0-47.0); HGB - HEMOGLOBIN 13.6 g/dL (12.0-16.0); LYMPHOCYTES # (AUTO) 2.3 10^3/uL (1.5-3.5); LYMPHOCYTES % (AUTO) 36.8 %; MEAN CORPUSCULAR HGB CONC 33.3 g/dL (32.0-36.0); MEAN PLATELET VOLUME 9.3 fL (7.9-10.8); MONOCYTES # (AUTO) 0.6 10^3/uL (0.0-1.0); MONOCYTES % (AUTO) 8.7 %; NEUTROPHILS # (AUTO) 3.3 10^3/uL (1.5-6.6); NEUTROPHILS % (AUTO) 51.7 %; PLT - PLATELET COUNT 280 10^3/uL (130-450); RED BLOOD COUNT 4.69 10^6/uL (4.20-5.40); RED CELL DISTRIBUTION WIDTH 12.9 % (12.0-15.0); WHITE BLOOD COUNT 6.3 x10^3/uL (4.8-10.8)
[2022-02-13 13:09] LABS: ALBUMIN 4.7 g/dL (3.2-5.5); ALBUMIN/GLOBULIN RATIO 1.6 (1.0-2.2); ALKALINE PHOSPHATASE 119 IU/L (42-121); ALT ALANINE AMINOTRANSFERASE 27 IU/L (10-60); AST ASPARTATE AMINOTRANSFERASE 17 IU/L (10-42); BILIRUBIN,TOTAL 0.5 mg/dL (0.2-1.0); BUN - BLOOD UREA NITROGEN 9 mg/dL (6-20); CALCIUM 9.1 mg/dL (8.5-10.3); CARBON DIOXIDE - CO2 25 mmol/L (21-32); CHLORIDE 94 mmol/L (101-111); CHOL/HDL RATIO 1.8 (<4.4); CHOLESTEROL 130 mg/dL; CREATININE 0.6 mg/dL (0.4-1.0); GFR - MDRD 108 (>89); GLUCOSE 77 mg/dL (70-100); HDL CHOLESTEROL 72 mg/dL; LDL CHOLESTEROL,CALCULATED 18 mg/dL; LDL/HDL RATIO 0.3 (<4.4); POTASSIUM 4.1 mmol/L (3.5-5.0); SODIUM 129 mmol/L (135-145); TOTAL PROTEIN 7.6 g/dL (6.7-8.2); TRIGLYCERIDES 202 mg/dL; VLDL CHOLESTEROL 40 mg/dL
[2022-02-13 13:13] LABS: CREATININE,URINE 62.7 mg/dL; MICROALBUMIN,URINE < 0.2 mg/dL (0-300.0)
[2022-02-13 13:16] LABS: THYROID STIMULATING HORMONE 4.82 uIU/mL (0.34-5.60)
[2022-02-13 13:18] LABS: FREE T4 (FREE THYROXINE) 0.7 ng/dL (0.58-1.64)
[2022-02-13 13:24] LABS: ESTIMATED AVERAGE GLUCOSE 171 mg/dL (70-100); HEMOGLOBIN A1c% 7.6 % (4.27-6.07)
== END 2022-02-13 09:50 | disposition home or self-care (01) ==
LOC: LAB.N 09:49
PROVIDERS: ATTEND Nurse Practitioner
DX: I10 Essential (primary) hypertension (principal); Z13.220 Encounter for screening for lipoid disorders; E11.65 Type 2 diabetes mellitus with hyperglycemia; E03.9 Hypothyroidism, unspecified
CPT/HCPCS: 36415; 80053; 80061; 82043; 82570; 83036; 83721; 84439; 84443; 85025

== ENCOUNTER 2022-04-09 08:00 | Outpatient (CLI) | payer MEDICARE, MEDICAID | END 2022-04-09 23:59 | disposition home or self-care (01) | LOC: LAB.N 08:00 | PROVIDERS: ATTEND Physician Assistant | DX: L98.491 Non-pressure chronic ulcer of skin of other sites limited to breakdown of skin (principal) | CPT/HCPCS: 87070; 87181; 87205 ==

== ENCOUNTER 2022-06-08 10:20 | Outpatient (CLI) | payer MEDICARE, MEDICAID ==
[2022-06-08 13:30] LABS: ESTIMATED AVERAGE GLUCOSE 166 mg/dL (70-100); HEMOGLOBIN A1c% 7.4 % (4.27-6.07)
[2022-06-08 13:35] LABS: CALCIUM 8.8 mg/dL (8.5-10.3); CREATININE 0.7 mg/dL (0.4-1.0); POTASSIUM 4.2 mmol/L (3.5-5.0)
== END 2022-06-08 10:21 | disposition home or self-care (01) ==
LOC: LAB.N 10:20
PROVIDERS: ATTEND Family Medicine
DX: I10 Essential (primary) hypertension (principal); E11.65 Type 2 diabetes mellitus with hyperglycemia; I80.209 Phlebitis and thrombophlebitis of unspecified deep vessels of unspecified lower extremity; I45.81 Long QT syndrome; F32.A Depression, unspecified; E78.5 Hyperlipidemia, unspecified
CPT/HCPCS: 36415; 80048; 83036

== ENCOUNTER 2022-06-11 12:04 | Emergency (ER) | payer MEDICARE, MEDICAID ==
--- NOTE | 2022-06-11 12:17 | ED Physician Documentation ---
PD HPI Fall - Stated complaint Stated Complaint: GLF HEAD STRIKE - Chief complaint Chief Complaint: Trauma Hd/Nk - History obtained from History obtained from: Patient, EMS - History of Present Illness Mechanism of injury: Tripped (she states she was sitting on her leg and it felt numb when she got up and it did not support her. No weakness of arm nor face. Fall to left and struck knee, elbow, shoulder and did hit head. 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 Modified trauma due to anticoag use with fall.) Injury(ies) location: Head Associated symptoms: No: LOC, AMS, Neck pain, Weakness Worsens with: Movement (pain of elbow/shoulder and knee with movement. guarding movement of those on left. Moving neck okay.) Contributing factors: Anticoagulated Similar symptoms before: Has not had sx before Review of Systems Skin: denies: Abrasion (s), Laceration (s) Neurologic: reports: Head injury. denies: Focal weakness, Numbness, Altered mental status, Headache, LOC PD PAST MEDICAL HISTORY - Past Medical History Cardiovascular: Hypertension, High cholesterol, Deep vein thrombosis, Pulmonary embolism, Arrhythmia Respiratory: Asthma, COPD, Sleep apnea Neuro: None Endocrine/Autoimmune: Type 2 diabetes GI: GERD, Chronic diarrhea, Other : Chronic bladder infection, Renal insuffiency HEENT: Chronic vision loss, Other Psych: Depression, Anxiety, Bipolar disorder, Schizophrenia, Other Musculoskeletal: Osteoarthritis, Gout Derm: Eczema, Rosacea - Past Surgical History Past Surgical History: Yes General: Cholecystectomy, Other Cardiovascular: Other - Present Medications Home Medications: Ambulatory Orders Medication Instructions Recorded Confirmed Gabapentin 600 mg PO BID 09/28/16 10/10/21 Rivaroxaban [Xarelto] 10 mg PO DAILY PM 09/28/16 10/10/21 Rosuvastatin Calcium [Crestor] 1 tab PO DAILY 09/28/16 10/10/21 lamoTRIgine [LaMICtal] 300 mg PO DAILY 09/28/16 10/10/21 lisinopriL [Lisinopril] 2.5 mg PO DAILY 09/28/16 10/10/21 Acetaminophen [Tylenol Extra 500 mg PO PRN PRN 10/19/17 10/10/21 Strength] Insulin Aspart [NovoLOG] 14 unit SUBQ ACHS 02/08/18 10/10/21 Insulin Detemir [Levemir Flextouch] 15 units SUBQ DAILY 02/08/18 10/10/[address] [Voltaren] 75 mg PO BIDWM 01/30/21 10/10/21 Fluticasone 44 Mcg [Flovent] 1 puffs INH BID PRN 01/30/21 10/10/21 Lorazepam [Ativan] 4 mg PO QPM 01/30/21 10/10/21 OLANZapine [Zyprexa] 20 mg PO DAILY 01/30/21 10/10/21 Semaglutide [Ozempic] 1 mg SQ OAW 01/30/21 10/10/21 Trazodone HCl 50 - 100 mg PO QPM 01/30/21 10/10/21 tiZANidine [Zanaflex] 4 mg PO Q8H 01/30/21 10/10/21 Ondansetron [Zuplenz] 1 ea PO PRN PRN 02/03/21 10/10/21 Rivaroxaban [Xarelto] 10 mg PO DAILY 10/10/21 10/10/21 HYDROcod/ACETAM 5/325 [[employer] 5/325] 1 ea PO Q6H PRN #18 tablet 06/11/22 - Allergies Allergies/Adverse Reactions: Allergies Allergy/AdvReac Type Severity Reaction Status Date / Time bupropion HCl * Allergy Rash Verified 12/24/20 15:51 [From Wellbutrin] cephalexin monohydrate * Allergy Rash Verified 12/24/20 15:51 [From Keflex] codeine Allergy Rash Verified 12/24/20 15:51 fluoxetine HCl * Allergy Anaphylaxis Verified 12/24/20 15:51 [From Prozac] haloperidol [From Haldol] Allergy Unknown Verified 06/11/22 12:11 lithium Allergy Unknown Verified 06/11/22 12:11 Penicillins Allergy Rash Verified 12/24/20 15:51 phenytoin sodium * Allergy Rash Verified 12/24/20 15:51 [From Dilantin] phenytoin sodium extended * Allergy Rash Verified 12/24/20 15:51 [From Dilantin] - Social History Does the pt smoke?: No Smoking Status: Never smoker Does the pt drink ETOH?: Yes Does the pt have substance abuse?: No - Immunizations Immunizations are current?: Yes - POLST Patient has POLST: No PD ED PE NORMAL - Vitals Vital signs reviewed: Yes - General General: Alert and oriented X 3, Well developed/nourished, Other (appears distressed emotionally and upset, with pain also of the left extremities. able to answer questions coherently. Somewhat simple mentation c/w cognitive and does not seem sluggish like concussed. very high BMI at 69.) - HEENT HEENT: Atraumatic - Neck Neck: Supple, no meningeal sign, No adenopathy - Respiratory Respiratory: Other (no chestwall tenderness) - Abdomen Abdomen: Soft, Non tender - Derm Derm: Normal color, Warm and dry - Extremities Extremities: Other (left shoulder and elbow with some tenderness and guarded ROM of both. No noted deformity. Passive rOM generally painful as well. Left knee with tenderness anteriorly. Unable to tell about effusion. Guarded ROM here as well active and passive. ) - Neuro Neuro: Alert and oriented X 3, No motor deficit, No sensory deficit, Normal speech Results - Vitals Vitals: Vital Signs - 24 hr 06/11/22 06/11/22 06/11/22 12:08 12:51 13:20 Temperature 36.6 C Heart Rate 104 H 96 94 Respiratory 15 16 13 Rate Blood Pressure 130/98 H 132/88 H O2 Saturation 95 98 98 06/11/22 06/11/22 06/11/22 13:30 14:17 14:30 Temperature Heart Rate 94 87 91 Respiratory 19 18 13 Rate Blood Pressure 118/71 114/71 128/81 H O2 Saturation 97 97 98 Oxygen O2 Source Room air - Rads (name of study) head cT Radiology: Prelim report reviewed, See rad report (no ICH nor acute injury. ) shoulder/elbow/knee xrays Radiology: Prelim report reviewed, EMP read indepedently (no fractures seen of any of these. ), See rad report PD Medical Decision Making - ED course Complexity details: reviewed results, re-evaluated patient, considered differential (modified trauma with accidental fall without apparent head injury but on DOAC due to prior PEs and DVTs. Will need to get head CT due to relatively high concern for iCH with falling even without impact directly. Having pain in shoulder, elbow, and knee on left. Can get xrays of these. ), d/w patient Drug Therapy Requiring Monitoring for Toxicity: given IM meds of Toradol single dose, which should be okay as single dose in conjunction with her doAC. also Dilaudid 1 mg IM to help with pain. Generally less pain and able to move extremities better. Still sore. Shared discussion for short term pain meds due to acute injury. Departure - Departure Disposition: 01 Home, Self Care Clinical Impression: Anticoagulant long-term use, Head contusion, Left shoulder strain, Contusion of elbow, left, Contusion of knee, left Fall from slip, trip, or stumble Qualifiers: Encounter type: initial encounter Qualified Code(s): W01.0XXA - Fall on same level from slipping, tripping and stumbling without subsequent striking against object, initial encounter Condition: Stable Record reviewed to determine appropriate education?: Yes Follow-Up: Steve Marie MD [Primary Care Provider] - Prescriptions: HYDROcod/ACETAM 5/325 [[employer] 5/325] 1 ea PO Q6H PRN #18 tablet PRN Reason: Pain Comments: Your head CT does not show any signs of fractures or bleeding. The x-rays of your shoulder elbow and knee do not show any fractures or misalignment. I presume these are mostly direct injury from the fall and perhaps some twisting component (so contusions and sprains). I would anticipate your shoulder elbow and knee to improve over the next several days to a week. Continue usual current medicines. Add Tylenol 500 to 650 mg 4 times daily to help with pain or hydrocodone/acetaminophen if needed for worse pain. I sent your prescription to [facility] pharmacy. Follow-up with your primary care if not improved well over the next several days to week Discharge Date/Time: 06/11/22 15:05
--- OUTSIDE RECORDS SUMMARY | 2022-06-11 12:28 | EXTERNAL MEDICAL SUMMARY RPT | Continuity of Care Document ---
:1975 Author Organization [facility] Address [address] [id number] Phone Allergies No information. Encounters No information. Functional Status No information. Immunizations No information. Medications No information. Problems No information. Procedures No information. Results/Labs test date author facility value unit interpret ation Result panel 1 (unknown) (no (unknown) (unknown) (no value) (units (unk nown) date) unknown) (unknown) (no (unknown) (unknown) 11/26/21 (units (unkno wn) date) unknown) (unknown) (no (unknown) (unknown) 40 (units (unkno wn) date) unknown) (unknown) (no (unknown) (unknown) 47 yo female (units (unknown) date) Present unknown) (unknown) (no (unknown) (unknown) Age/Sex: 46 / F (units (unknown) date) Date of Service: unknown) (unknown) (no (unknown) (unknown) Allergies (units (unkn own) date) unknown) (unknown) (no (unknown) (unknown) [place], [place] (units ( unknown) date) [id number] unknown) (unknown) (no (unknown) (unknown) Attending Dr: Laureen (units (unknown) date) Antoinette Morton MD unknown) (unknown) (no (unknown) (unknown) Chief Complaint (units (unknown) date) unknown) (unknown) (no (unknown) (unknown) Chief Complaint: (units (unknown) date) post-op visit unknown) (unknown) (no (unknown) (unknown) : 1975 (units (unknown) date) Acct:[id number] unknown) (unknown) (no (unknown) (unknown) Date of Last (units (u nknown) date) Menstrual Period: unknown) 11/16/21 (unknown) (no (unknown) (unknown) Dept at (units (unkno wn) date) . unknown) (unknown) (no (unknown) (unknown) Details: (units (unkno wn) date) unknown) (unknown) (no (unknown) (unknown) Diabetes (units (unkno wn) date) unknown) (unknown) (no (unknown) (unknown) Documented By: (units (unknown) date) Laureen Morton unknown) 11/26/21 08 (unknown) (no (unknown) (unknown) Draft (units (unkno wn) date) unknown) (unknown) (no (unknown) (unknown) Facet arthropathy, (units (unknown) date) cervical unknown) (unknown) (no (unknown) (unknown) Facet arthropathy, (units (unknown) date) lumbar unknown) (unknown) (no (unknown) (unknown) [facility]) (unknown) (no (unknown) (unknown) Gynecology Visit (units (unknown) date) unknown) (unknown) (no (unknown) (unknown) H/O ventral hernia (units (unknown) date) repair unknown) (unknown) (no (unknown) (unknown) HEART PALPITATIONS (units (unknown) date) unknown) (unknown) (no (unknown) (unknown) HPI (units (unkno wn) date) unknown) (unknown) (no (unknown) (unknown) Hypertension (units (u nknown) date) unknown) (unknown) (no (unknown) (unknown) Intake Note: (units (u nknown) date) unknown) (unknown) (no (unknown) (unknown) Intake performed (units (unknown) date) by: Elliot Sepulveda unknown) (unknown) (no (unknown) (unknown) Intake (units (unkno wn) date) unknown) (unknown) (no (unknown) (unknown) Intake- Clincial (units (unknown) date) Staff unknown) (unknown) (no (unknown) (unknown) Is last menstrual (units (unknown) date) period known: Yes unknown) (unknown) (no (unknown) (unknown) LMP- 11/16/21 (units (un known) date) unknown) (unknown) (no (unknown) (unknown) Last Menstural (units (unknown) date) Cycle + Details unknown) (unknown) (no (unknown) (unknown) Loc: [facility] (units (unkno wn) date) unknown) (unknown) (no (unknown) (unknown) MR#: [id number] (units (unknown) date) unknown) (unknown) (no (unknown) (unknown) Medical History (units (unknown) date) (Reviewed 10/16/21 unknown) @ 17:30 by Selena Gutierrez MD) (unknown) (no (unknown) (unknown) Morbid obesity (units (unknown) date) unknown) (unknown) (no (unknown) (unknown) PCOS (polycystic (units (unknown) date) ovarian syndrome) unknown) (unknown) (no (unknown) (unknown) PFSH (units (unkno wn) date) unknown) (unknown) (no (unknown) (unknown) Patient: Jason (units (unknown) date) Eve Silva M unknown) (unknown) (no (unknown) (unknown) Penicillins (units (un known) date) [PENICILLINS] unknown) Allergy (Severe, Verified 11/26/21 08:51) (unknown) (no (unknown) (unknown) Psychiatric (units (un known) date) diagnosis unknown) (unknown) (no (unknown) (unknown) Pt here for PO f/u (units (unknown) date) D+C 10/20 w/ unknown) [place] (unknown) (no (unknown) (unknown) Pt states she is (units (unknown) date) doing well - did unknown) have her 1st cycle since D+C states it was (unknown) (no (unknown) (unknown) RASH (units (unkno wn) date) unknown) (unknown) (no (unknown) (unknown) Reaction not (units (u nknown) date) listed on PCP visit unknown) 08/12/20 (unknown) (no (unknown) (unknown) Reason For Visit (units (unknown) date) unknown) (unknown) (no (unknown) (unknown) Signed By: (units (unk nown) date) unknown) (unknown) (no (unknown) (unknown) Smoking Status: (units (unknown) date) Former smoker unknown) (unknown) (no (unknown) (unknown) Social History (units (unknown) date) unknown) (unknown) (no (unknown) (unknown) Surgical History (units (unknown) date) (Reviewed 10/16/21 unknown) @ 17:30 by Selena Gutierrez MD) (unknown) (no (unknown) (unknown) This note may have (units (unknown) date) been all or unknown) partially generated using voice recognition (unknown) (no (unknown) (unknown) Tobacco + (units (unkn own) date) Substance Use unknown) (unknown) (no (unknown) (unknown) Tobacco Status (units (unknown) date) unknown) (unknown) (no (unknown) (unknown) Visit Reasons: PO (units (unknown) date) D+C unknown) (unknown) (no (unknown) (unknown) adhesive tape (units ( unknown) date) Allergy (Severe, unknown) Verified 11/26/21 08:51) (unknown) (no (unknown) (unknown) alcohol intake: (units (unknown) date) former unknown) (unknown) (no (unknown) (unknown) bupropion [From (units (unknown) date) WELLBUTRIN] Allergy unknown) (Severe, Verified 11/26/21 08:51) (unknown) (no (unknown) (unknown) cephalexin [From (units (unknown) date) KEFLEX] Allergy unknown) (Severe, Verified 11/26/21 08:51) (unknown) (no (unknown) (unknown) codeine [CODEINE] (units (unknown) date) Adverse Reaction unknown) (Severe, Verified 11/26/21 08:51) (unknown) (no (unknown) (unknown) fluoxetine [From (units (unknown) date) PROZAC] Allergy unknown) (Severe, Verified 11/26/21 08:51) (unknown) (no (unknown) (unknown) haloperidol [From (units (unknown) date) Haldol] Allergy unknown) (Severe, Verified 11/26/21 08:51) (unknown) (no (unknown) (unknown) have occurred. If (units (unknown) date) there are any unknown) questions, please contact the Medical Records (unknown) (no (unknown) (unknown) heavy and painful (units (unknown) date) unknown) (unknown) (no (unknown) (unknown) household members: (units (unknown) date) significant other unknown) (unknown) (no (unknown) (unknown) lithium [LITHIUM] (units (unknown) date) Allergy (Severe, unknown) Verified 11/26/21 08:51) (unknown) (no (unknown) (unknown) lurasidone [From (units (unknown) date) Latuda] Allergy unknown) (Severe, Verified 11/26/21 08:51) (unknown) (no (unknown) (unknown) may occur. (units (unk nown) date) Occasional unknown) wrong-word or 'sound-alike' substitutions may have (unknown) (no (unknown) (unknown) occurred due to (units (unknown) date) the inherent unknown) limitations of voice recognition software. Please (unknown) (no (unknown) (unknown) phenytoin [From (units (unknown) date) DILANTIN] Allergy unknown) (Severe, Verified 11/26/21 08:51) (unknown) (no (unknown) (unknown) read the note (units ( unknown) date) carefully and unknown) recognize, using context, where these substitutions (unknown) (no (unknown) (unknown) software. Although (units (unknown) date) every effort is unknown) made to edit content, forge helper errors (unknown) (no (unknown) (unknown) sulfamethoxazole (units (unknown) date) [From Bactrim] unknown) Allergy (Severe, Verified 11/26/21 08:51) (unknown) (no (unknown) (unknown) trimethoprim [From (units (unknown) date) Bactrim] Allergy unknown) (Severe, Verified 11/26/21 08:51) Result panel 2 (unknown) (no (unknown) (unknown) (no value) (units (unk nown) date) unknown) (unknown) (no (unknown) (unknown) (1) Abnormal (units (u nknown) date) uterine bleeding: unknown) (unknown) (no (unknown) (unknown) (2) Post-operative (units (unknown) date) state: unknown) (unknown) (no (unknown) (unknown) -return prn (units (un known) date) unknown) (unknown) (no (unknown) (unknown) 04/22/22 1501 (units ( unknown) date) unknown) (unknown) (no (unknown) (unknown) 11/26/21 (units (unkno wn) date) unknown) (unknown) (no (unknown) (unknown) 40 (units (unkno wn) date) unknown) (unknown) (no (unknown) (unknown) 47 yo female (units (unknown) date) presents for a unknown) postop visit status post D+C hysteroscopy by (unknown) (no (unknown) (unknown) Age/Sex: 46 / F (units (unknown) date) Date of Service: unknown) (unknown) (no (unknown) (unknown) Allergies (units (unkn own) date) unknown) (unknown) (no (unknown) (unknown) [place], [place] (units ( unknown) date) [id number] unknown) (unknown) (no (unknown) (unknown) Assessment + Plan (units (unknown) date) unknown) (unknown) (no (unknown) (unknown) Attending Dr: Laureen (units (unknown) date) Antoinette Morton MD unknown) (unknown) (no (unknown) (unknown) Chief Complaint (units (unknown) date) unknown) (unknown) (no (unknown) (unknown) Chief Complaint: (units (unknown) date) post-op visit unknown) (unknown) (no (unknown) (unknown) D+C, hysteroscopy (units (unknown) date) was for AUB and unknown) abnormal endometrium on ultrasound. She (unknown) (no (unknown) (unknown) : 1975 (units (unknown) date) Acct:[id number] unknown) (unknown) (no (unknown) (unknown) Date of Last (units (u nknown) date) Menstrual Period: unknown) 11/16/21 (unknown) (no (unknown) (unknown) Dept at (units (unkno wn) date) . unknown) (unknown) (no (unknown) (unknown) Details: (units (unkno wn) date) unknown) (unknown) (no (unknown) (unknown) Diabetes (units (unkno wn) date) unknown) (unknown) (no (unknown) (unknown) Documented By: (units (unknown) date) Laureen Morton MD 11/26/21 08 (unknown) (no (unknown) (unknown) Dr. Gutierrez. (units (u nknown) date) unknown) (unknown) (no (unknown) (unknown) Exam Narrative (units (unknown) date) unknown) (unknown) (no (unknown) (unknown) Exam Narrative: (units (unknown) date) unknown) (unknown) (no (unknown) (unknown) Exam (units (unkno wn) date) unknown) (unknown) (no (unknown) (unknown) Facet arthropathy, (units (unknown) date) cervical unknown) (unknown) (no (unknown) (unknown) Facet arthropathy, (units (unknown) date) lumbar unknown) (unknown) (no (unknown) (unknown) [facility]) (unknown) (no (unknown) (unknown) General: (units (unkno wn) date) Well-appearing unknown) female (unknown) (no (unknown) (unknown) Gynecology Visit (units (unknown) date) unknown) (unknown) (no (unknown) (unknown) H/O ventral hernia (units (unknown) date) repair unknown) (unknown) (no (unknown) (unknown) HEART PALPITATIONS (units (unknown) date) unknown) (unknown) (no (unknown) (unknown) HPI (units (unkno wn) date) unknown) (unknown) (no (unknown) (unknown) History of (units (unk nown) date) possible unknown) endometriosis diagnosed in the past, presumptive diagnosis, (unknown) (no (unknown) (unknown) Hypertension (units (u nknown) date) unknown) (unknown) (no (unknown) (unknown) Intake Note: (units (u nknown) date) unknown) (unknown) (no (unknown) (unknown) Intake performed (units (unknown) date) by: Elliot Sepulveda unknown) (unknown) (no (unknown) (unknown) Intake (units (unkno wn) date) unknown) (unknown) (no (unknown) (unknown) Intake- Clincial (units (unknown) date) Staff unknown) (unknown) (no (unknown) (unknown) Is last menstrual (units (unknown) date) period known: Yes unknown) (unknown) (no (unknown) (unknown) LMP- 11/16/21 (units (un known) date) unknown) (unknown) (no (unknown) (unknown) Last Menstural (units (unknown) date) Cycle + Details unknown) (unknown) (no (unknown) (unknown) Loc: [facility] (units (unkno wn) date) unknown) (unknown) (no (unknown) (unknown) MR#: [id number] (units (unknown) date) unknown) (unknown) (no (unknown) (unknown) Medical History (units (unknown) date) (Reviewed 10/16/21 unknown) @ 17:30 by Selena Gutierrez MD) (unknown) (no (unknown) (unknown) Menses monthly, (units (unknown) date) heavy but currently unknown) manageable to her. Uses pull up pad (unknown) (no (unknown) (unknown) Morbid obesity (units (unknown) date) unknown) (unknown) (no (unknown) (unknown) On ultrasound by (units (unknown) date) Dr. Gutierrez in the unknown) office on 2021, endometrium at fundus (unknown) (no (unknown) (unknown) Operative report (units (unknown) date) notes some polypoid unknown) tissue seen at the fundus which was (unknown) (no (unknown) (unknown) Otherwise normal (units (unknown) date) appearing cavity unknown) and remainder endometrium appeared normal. (unknown) (no (unknown) (unknown) PCOS (polycystic (units (unknown) date) ovarian syndrome) unknown) (unknown) (no (unknown) (unknown) PFSH (units (unkno wn) date) unknown) (unknown) (no (unknown) (unknown) Pap smear 06/2021 (units (unknown) date) was normal. No HPV unknown) screen done (unknown) (no (unknown) (unknown) Pathology showed (units (unknown) date) benign interval unknown) endometrium, no hyperplasia, atypia or (unknown) (no (unknown) (unknown) Patient: [place] (units (unknown) date) Eve Silva M unknown) (unknown) (no (unknown) (unknown) Penicillins (units (un known) date) [PENICILLINS] unknown) Allergy (Severe, Verified 11/26/21 08:51) (unknown) (no (unknown) (unknown) Per operative (units ( unknown) date) report on unknown) hysteroscopy a normal uterine cavity was noted. (unknown) (no (unknown) (unknown) Plan (units (unkno wn) date) unknown) (unknown) (no (unknown) (unknown) Psychiatric (units (un known) date) diagnosis unknown) (unknown) (no (unknown) (unknown) Pt here for PO f/u (units (unknown) date) D+C 10/20 w/ unknown) [place] (unknown) (no (unknown) (unknown) Pt states she is (units (unknown) date) doing well - did unknown) have her 1st cycle since D+C states it was (unknown) (no (unknown) (unknown) RASH (units (unkno wn) date) unknown) (unknown) (no (unknown) (unknown) Reaction not (units (u nknown) date) listed on PCP visit unknown) 08/12/20 (unknown) (no (unknown) (unknown) Reason For Visit (units (unknown) date) unknown) (unknown) (no (unknown) (unknown) Reports expelling (units (unknown) date) last IUD. She finds unknown) menses manageable currently and prefers (unknown) (no (unknown) (unknown) Reviewed benign (units (unknown) date) pathology results. unknown) (unknown) (no (unknown) (unknown) Reviewed (units (unkno wn) date) hysteroscopic unknown) findings, polypoid tissue which was removed and benign. (unknown) (no (unknown) (unknown) She has a history (units (unknown) date) of PCOS but reports unknown) the past 3 years menses have been more (unknown) (no (unknown) (unknown) She reports 1st (units (unknown) date) menses after was unknown) fairly heavy and crampy. (unknown) (no (unknown) (unknown) Signed By: (units (unk nown) date) <Electronically unknown) signed by Laureen Morton MD> (unknown) (no (unknown) (unknown) Signed (units (unkno wn) date) unknown) (unknown) (no (unknown) (unknown) Smoking Status: (units (unknown) date) Former smoker unknown) (unknown) (no (unknown) (unknown) Social History (units (unknown) date) unknown) (unknown) (no (unknown) (unknown) Status: Acute (units ( unknown) date) unknown) (unknown) (no (unknown) (unknown) Surgical History (units (unknown) date) (Reviewed 10/16/21 unknown) @ 17:30 by Selena Gutierrez MD) (unknown) (no (unknown) (unknown) The patient (units (un known) date) reports doing fine unknown) after the procedure. No problems after D+C, No (unknown) (no (unknown) (unknown) This note may have (units (unknown) date) been all or unknown) partially generated using voice recognition (unknown) (no (unknown) (unknown) Tobacco + (units (unkn own) date) Substance Use unknown) (unknown) (no (unknown) (unknown) Tobacco Status (units (unknown) date) unknown) (unknown) (no (unknown) (unknown) Visit Reasons: PO (units (unknown) date) D+C unknown) (unknown) (no (unknown) (unknown) adhesive tape (units ( unknown) date) Allergy (Severe, unknown) Verified 11/26/21 08:51) (unknown) (no (unknown) (unknown) alcohol intake: (units (unknown) date) former unknown) (unknown) (no (unknown) (unknown) bupropion [From (units (unknown) date) WELLBUTRIN] Allergy unknown) (Severe, Verified 11/26/21 08:51) (unknown) (no (unknown) (unknown) cephalexin [From (units (unknown) date) KEFLEX] Allergy unknown) (Severe, Verified 11/26/21 08:51) (unknown) (no (unknown) (unknown) codeine [CODEINE] (units (unknown) date) Adverse Reaction unknown) (Severe, Verified 11/26/21 08:51) (unknown) (no (unknown) (unknown) discussed (units (unkn own) date) consideration of unknown) Mirena IUD or other treatment for heavy menses. (unknown) (no (unknown) (unknown) fluoxetine [From (units (unknown) date) PROZAC] Allergy unknown) (Severe, Verified 11/26/21 08:51) (unknown) (no (unknown) (unknown) haloperidol [From (units (unknown) date) Haldol] Allergy unknown) (Severe, Verified 11/26/21 08:51) (unknown) (no (unknown) (unknown) have occurred. If (units (unknown) date) there are any unknown) questions, please contact the Medical Records (unknown) (no (unknown) (unknown) heavy and painful (units (unknown) date) unknown) (unknown) (no (unknown) (unknown) heterogeneous (units ( unknown) date) endometrium with unknown) possible mass measuring 1.1 cm. (unknown) (no (unknown) (unknown) household members: (units (unknown) date) significant other unknown) (unknown) (no (unknown) (unknown) lithium [LITHIUM] (units (unknown) date) Allergy (Severe, unknown) Verified 11/26/21 08:51) (unknown) (no (unknown) (unknown) lurasidone [From (units (unknown) date) Latuda] Allergy unknown) (Severe, Verified 11/26/21 08:51) (unknown) (no (unknown) (unknown) malignancy. (units (un known) date) unknown) (unknown) (no (unknown) (unknown) may occur. (units (unk nown) date) Occasional unknown) wrong-word or 'sound-alike' substitutions may have (unknown) (no (unknown) (unknown) measured 0.5 cm (units (unknown) date) but lower uterine unknown) segment dilated with fluid noted and (unknown) (no (unknown) (unknown) no scope. She (units ( unknown) date) received Lupron at unknown) that time. (unknown) (no (unknown) (unknown) normal postop (units ( unknown) date) check. unknown) (unknown) (no (unknown) (unknown) occurred due to (units (unknown) date) the inherent unknown) limitations of voice recognition software. Please (unknown) (no (unknown) (unknown) pelvic pain or (units (unknown) date) persistent unknown) bleeding. (unknown) (no (unknown) (unknown) phenytoin [From (units (unknown) date) DILANTIN] Allergy unknown) (Severe, Verified 11/26/21 08:51) (unknown) (no (unknown) (unknown) read the note (units ( unknown) date) carefully and unknown) recognize, using context, where these substitutions (unknown) (no (unknown) (unknown) regular. (units (unkno wn) date) unknown) (unknown) (no (unknown) (unknown) removed, otherwise (units (unknown) date) normal-appearing unknown) endometrium. (unknown) (no (unknown) (unknown) reported mostly (units (unknown) date) monthly menses but unknown) sometimes light and watery. (unknown) (no (unknown) (unknown) software. Although (units (unknown) date) every effort is unknown) made to edit content, forge helper errors (unknown) (no (unknown) (unknown) sulfamethoxazole (units (unknown) date) [From Bactrim] unknown) Allergy (Severe, Verified 11/26/21 08:51) (unknown) (no (unknown) (unknown) to follow for now. (units (unknown) date) unknown) (unknown) (no (unknown) (unknown) trimethoprim [From (units (unknown) date) Bactrim] Allergy unknown) (Severe, Verified 11/26/21 08:51) (unknown) (no (unknown) (unknown) underwear 5-6 per (units (unknown) date) day. unknown) Social History No information. Vital Signs No information.
--- NOTE | 2022-06-11 12:32 | CT Report ---
PROCEDURE: HEAD WO INDICATIONS: fall, struck head, on xarelto TECHNIQUE: Noncontrast 4.5 mm thick angled axial sections acquired from the foramen magnum to the vertex. For r adiation dose reduction, the following was used: automated exposure control, adjustment of mA and/or kV according to patient size. COMPARISON: None. FINDINGS: Image quality: Excellent. CSF spaces: Basal cisterns are patent. No extra-axial fluid collections. Ventricles are normal in size and shape. Brain: No midline shift. No intracranial masses or hemorrhage. Izquierdo-white matter interface is norm al. Skull and face: Calvarium and visualized facial bones are intact, without suspicious lesions. Sinuses: Visualized sinuses and mastoids are clear. IMPRESSION: No acute intracranial abnormality. Reviewed by: Trung Bee on 06/11/2022 12:31 PM PST Approved by: Trung Bee on 06/11/2022 12:31 PM [facility] Station ID: [id number]
[2022-06-11] MEDS ORDERED: HYDROmorphone 1 MG/ML CARPUJECT IM STA ×2 (13:00→13:55)
[2022-06-11] MEDS ORDERED: KETOROLAC 30 MG/ML VIAL IM STA (13:00)
--- NOTE | 2022-06-11 13:31 | XRAY Report ---
PROCEDURE: Elbow 3 View LT INDICATIONS: fall to left; hurt elbow TECHNIQUE: 3 views of the elbow were acquired. COMPARISON: None FINDINGS: Bones: The images are limited due to inability of the patient to move into proper positioning. No def inite fracture is identified. Soft tissues: No elbow joint effusion. No suspicious soft tissue calcifications. IMPRESSION: No fractures identified, however images are limited due to difficulty with positioning of the patient. If fracture is suspected, consider CT. Reviewed by: Trung Bee on 06/11/2022 1:29 PM PST Approved by: Trung Bee on 06/11/2022 1:29 PM [facility] Station ID: [id number]
--- NOTE | 2022-06-11 13:32 | XRAY Report ---
PROCEDURE: Shoulder 3 View LT INDICATIONS: fall to left; hurt shoulder TECHNIQUE: 3 views of the shoulder were acquired. COMPARISON: None. FINDINGS: Bones: No fractures or dislocations. Degenerative changes of the left glenoid. No suspicious bony l esions. Visualized ribs appear intact. Soft tissues: No suspicious soft tissue calcifications. IMPRESSION: No acute abnormality of the left shoulder. Reviewed by: Trung Bee on 06/11/2022 1:31 PM [facility] Approved by: Trung Bee on 06/11/2022 1:31 PM [facility] Station ID: [id number]
--- NOTE | 2022-06-11 13:34 | XRAY Report ---
PROCEDURE: Knee 2 View LT INDICATIONS: fall to left, hurt knee TECHNIQUE: 2 views of the left knee(s) were acquired. COMPARISON: None. FINDINGS: Bones: No fractures or dislocations. No suspicious bony lesions. Soft tissues: No joint effusion. No suspicious soft tissue calcifications. IMPRESSION: No fractures identified. Reviewed by: Trung Bee on 06/11/2022 1:32 PM [facility] Approved by: Trung Bee on 06/11/2022 1:32 PM [facility] Station ID: [id number]
[2022-06-11 14:33] VITALS: BP 128/81
== END 2022-06-11 15:05 | disposition home or self-care (01) ==
LOC: EDUNIT# → ED 12:04
DX: S00.93XA Contusion of unspecified part of head, initial encounter (principal); S46.912A Strain of unspecified muscle, fascia and tendon at shoulder and upper arm level, left arm, initial encounter; S50.02XA Contusion of left elbow, initial encounter; S80.02XA Contusion of left knee, initial encounter; W01.0XXA Fall on same level from slipping, tripping and stumbling without subsequent striking against object, initial encounter; Y93.89 Activity, other specified; Y92.009 Unspecified place in unspecified non-institutional (private) residence as the place of occurrence of the external cause; Z79.01 Long term (current) use of anticoagulants
CPT/HCPCS: 36415; 70450; 73030; 73080; 73560; 96372; 99284; J1170

== ENCOUNTER 2023-03-13 17:07 | Outpatient (CLI) | payer OTHER, MEDICARE, MEDICAID | END 2023-03-13 17:08 | disposition EMS.NT | LOC: EMS 17:07 | DX: M25.561 Pain in right knee (principal); V53.6XXA Passenger in pick-up truck or van injured in collision with car, pick-up truck or van in traffic accident, initial encounter; Y92.413 State road as the place of occurrence of the external cause ==